=== PATIENT | female | born 1960 | race Caucasian/White ===

== ENCOUNTER 2017-07-22 12:04 | Inpatient (IN) | payer OTHER ==
[~2017-07-22] VITALS: Ht 160 cm; Wt 43.5 kg
[~2017-07-22 12:04] MED LIST: ALPRAZOLAM1 M2 PO; AMLODIPINE BES2.5 M1 PO; AMLODIPINE BESYL5 M1 PO; ASPIR 8181 MG PO; CLINDAMYCIN300 MG PO; DILAUDID2 MG PO; DILAUDID4 M1 PO; DOXYCYCLINE HY100 M2 PO; HYDROMORPHONE HY4 MG PO; MAGOX 400400 MG PO; MELATONIN3 MG PO; NEPHRO-VITE RX1 EACH PO; NORVASC 5MG TAB5 MG PO; NOVAPLUS V0.09 MG/Ac INH; NUVIGIL250 MG PO; NYQUIL PO; OXYCODONE HCL30 MG PO; OXYCONTIN60 MG PO; PERCOCET 325 MG1 TA2 PO; PHENERGAN25 M1 PO; PROMETHAZINE HC25 M1 PO; PROMETHAZINE HC25 M3 PO; ROXICODONE30 MG PO; SODIUM BICARBO650 M1 PO; ZITHROMAX Z-PA250 M1 PO
--- NOTE | 2017-07-22 12:20 | ED DYSPNEA/ASTHMA COMPLAINT ---
History of Present Illness General Chief Complaint: Dyspnea (COPD, CHF, Other) Stated Complaint: SOB Source: patient, old records Exam Limitations: clinical condition Vital Signs & Intake/Output Vital Signs & Intake/Output Vital Signs Date Time Temp Pulse Resp B/P B/P Pulse O2 O2 Flow FiO2 Mean Ox Delivery Rate 07/22 1624 98.9 108 28 183/88 97 Non 100% ReBreather 07/22 1520 98.5 111 28 211/102 98 Non 100% ReBreather 07/22 1433 98.2 101 26 205/95 99 Non ReBreather 07/22 1342 86 189/97 07/22 1320 101 196/96 07/22 1305 98.1 103 26 198/110 92 Non 100% ReBreather 07/22 1250 100 Non 100% ReBreather 07/22 1239 98 Non 100% ReBreather 07/22 1216 96.5 117 26 194/106 81 Room Air Allergies Coded Allergies: propofol (Severe, SHORTNESS OF BREATH 12/02/15) Iodinated Contrast- Oral and IV Dye (IODINATED CONTRAST MEDIA - IV DYE) (UNKNOWN PER PT DOESNT REMEMBER 07/13/15) NSAIDS (Non-Steroidal Anti-Inflamma (PER MD NO NSAIDS 07/13/15) aspirin (PER PT MD SAID NO ASA - KIDNEYS 07/13/15) codeine (ANAPHYLAXIS 07/13/15) cortisone (UNKNOWN NOT ALLOWED PER MD KIDNEY 07/13/15) erythromycin base (DECREASED RENAL FUNCTIONS 07/13/15) hydrocodone (From VICODIN) (PER PT MD STATES NO APAP 07/13/15) morphine (SEVERE MIGRAINES AND GI UPSET 07/13/15) ondansetron (UNKNOWN PT DOESNT REMEMBER 07/13/15) metoclopramide (Intermediate, WEAKNESS 07/13/15) Sulfa (Sulfonamide Antibiotics) (VOMITING 07/13/15) ciprofloxacin (From CIPRO) (DIZZY 07/13/15) methadone (VOMITING 07/13/15) Uncoded Allergies: SALMON OIL (UNKNOWN REACTION TO SALMON 07/13/15) Reconcile Medications Alprazolam 1 MG TABLET 1 TAB PO 5 TIMES A DAY ANXIETY (Reported) Amlodipine Besylate 10 MG TABLET 1 TAB PO DAILY HEART (Reported) Triage Note: PT DIRECTLY TO ROOM [address] [facility] DESK. PT ARRIVED TO ER STATING, "I CAN'T BREATHE". PT MARINELLI. OXYGEN SAT 82-85% ON RA. HR 120'S. PT ON DIALYSIS, LAST SESSION LAST SATURDAY PER PT. PT ADMITS TO PAIN WITH INSPIRATION, STARTED COUGHING UP BLOOD THIS AM Triage Nurses Notes Reviewed? yes Onset: Abrupt Duration: day(s):, constant Timing: recent history Severity: moderate, severe Activities at Onset: none HPI: 56-year-old female comes into the emergency room for shortness of breath chest pain and generalized pain. Has a history of chronic kidney disease on hemodialysis. She has not been to dialysis in over a week. She goes twice a week typically. Reports that she had a previous history of a heart attack. She is increasing chest tightness and shortness of breath. She has not seen a doctor in quite some time. She also reports that she is withdrawing from pain medication. She typically uses pain pills. Some associated nausea. He comes in for further evaluation. History is somewhat limited secondary to patient's clinical condition. (Lalit Sheridan) Past History Travel History Traveled to [place] past 21 day No Medical History Any Pertinent Medical History? 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 No (Lalit Sheridan) Review of Systems Review of Systems Constitutional: Reports: no symptoms. EENTM: Reports: no symptoms. Respiratory: Reports: see HPI. Cardiovascular: Reports: see HPI. GI: Reports: no symptoms. Genitourinary: Reports: no symptoms. Musculoskeletal: Reports: see HPI. Skin: Reports: no symptoms. Neurological/Psychological: Reports: no symptoms. Hematologic/Endocrine: Reports: no symptoms. Immunologic/Allergic: Reports: no symptoms. All Other Systems: Reviewed and Negative (Lalit Sheridan) Physical Exam Physical Exam General Appearance: alert, awake, moderate distress Head: atraumatic, normal appearance Eyes: Bilateral: normal appearance. Ears, Nose, Throat: normal ENT inspection Neck: normal inspection Respiratory: crackles, respiratory distress (moderate) Cardiovascular: tachycardia Gastrointestinal: soft Extremities: no edema Neurologic/Psych: awake, alert Skin: intact Core Measures ACS in differential dx? Yes CVA/TIA Diagnosis No Sepsis Present: No Sepsis Focused Exam Completed? No (Lalit Sheridan) Progress Differential Diagnosis: asthma, AMI, bronchitis, costochondritis, CHF, COPD, musculoskeletal pain, pericarditis, pulmonary embolism, pneumonia, pneumothorax, rib fracture, unstable angina Plan of Care: Orders Procedure Date/time Status Renal Dialysis Diet 07/22 D Active VRE ACTIVE SURVIELLANCE 07/22 1637 Active ACTIVE SURVEILLANCE NARES 07/22 1637 Active Pathway - chart 07/22 1545 Active RAPID VIRAL INFLUENZA A 07/22 1545 Complete STREP PNEUMO URINARY ANTIGEN 07/22 1545 Active LEGIONELLA URINARY ANTIGEN 07/22 1545 Active TRC EVALUATION (GEN) 07/22 1541 Active OXYGEN SETUP (GEN) 07/22 1541 Active Pathway - chart 07/22 1541 Active House Staff 07/22 1541 Active Code Status 07/22 1541 Active LACTIC ACID 07/22 1522 Complete FingerStick- Glucose 07/22 1427 Active Patient Data 07/22 1354 Active Admit to inpatient 07/22 1351 Active OXYGEN SETUP (GEN) 07/22 1301 Complete AEROSOL (GEN) 07/22 1301 Complete EKG 07/22 1250 Active BLOOD CULTURE 07/22 1222 Active LACTIC ACID 07/22 1222 Complete ARTERIAL BLOOD GAS (GEN) 07/22 1219 Complete Telemetry/Unix Administrator 07/22 1219 Active TROPONIN LEVEL 07/22 1219 Complete PARTIAL THROMBOPLASTIN TIME 07/22 1219 Complete PROTHROMBIN TIME 07/22 1219 Complete COMPREHENSIVE METABOLIC PANEL 07/22 1219 Complete CBC WITHOUT DIFFERENTIAL 07/22 1219 Complete EKG 07/22 1219 Active VTE Mechanical Prophylaxis 07/22 UNK Active Vital Signs 07/22 UNK Active Intake & Output 07/22 UNK Active Current Medications Sig/Nhi Start time Last Medication Dose Stop Time Status Admin Azithromycin 500 MG DAILY 07/23 1000 AC (Zithromax) Dextrose/Water 250 ML (D5W) Ceftriaxone Sodium 1,000 MG DAILY 07/23 1000 AC (Rocephin) Heparin Sodium 5,000 UNIT Q8 07/22 2200 AC (Porcine) Acetaminophen 650 MG Q6P PRN 07/22 1545 AC (Tylenol) Acetaminophen 1,000 MG Q6P PRN 07/22 1545 AC (Ofirmev) Polyethylene Glycol 17 GM DAILY PRN 07/22 1545 AC (Miralax) Ondansetron HCl 4 MG ONCE ONE 07/22 1300 CAN (Zofran) 07/22 1301 Laboratory Tests 07/22/17 1537: Lactic Acid 1.2 07/22/17 1300: Lactic Acid 0.8 07/22/17 1300: Anion Gap 17 H, Estimated GFR 3 L, BUN/Creatinine Ratio 6.5 L, Glucose 100 H , Calcium 9.7, Total Bilirubin 0.8, AST 15, ALT 20, Alkaline Phosphatase 95, Troponin I 0.05, Total Protein 7.3, Albumin 4.0, Globulin 3.3, Albumin/Globulin Ratio 1.2, PT 12.3, INR 1.13, APTT 26, CBC w Diff MAN DIFF ORDERED, RBC 3.52 L, MCV 91.6, MCH 30.7, MCHC 33.5, RDW 15.4 H, MPV 8.8, Gran % 93.3 H, Lymphocytes % 3.0 L, Monocytes % 3.3, Eosinophils % 0.3, Basophils % 0.1, Absolute Granulocytes 16.8 H, Segmented Neutrophils 86 H, Band Neutrophils 4, Absolute Lymphocytes 0.5 L, Lymphocytes 6 L, Monocytes 4, Absolute Monocytes 0.6, Absolute Eosinophils 0, Absolute Basophils 0, Platelet Estimate ADEQUATE, Normocytic RBCs VERIFIED, Normochromic RBCs VERIFIED, Poikilocytosis FEW, Sarbjit Cells FEW 07/22/17 1235: pH 7.26 *L, pCO2 25 L, pO2 84, HCO3 11 L, ABG O2 Sat (Measured) 94.0 L, Carboxyhemoglobin 1.4 L, O2 Concentration % 100%, O2 Delivery Method RICARDO MASK, Phlebotomy Draw Site RIGHT BRACHIAL Microbiology 07/22 163 UPPER RESP: Surveillance Culture - ORD 07/22 1637 GI: Surveillance Culture - ORD 07/22 1550 NASOPHARYN: Influenza Virus A & B Rapid Smear - COMP 07/22 1545 URINE ROUT: Legionella Antigen - ORD 07/22 1545 URINE ROUT: Streptococcus pneumoniae Antigen (M - ORD 07/22 1537 BLOOD: Blood Culture - RECD 07/22 1300 BLOOD: Blood Culture - RECD Diagnostic Imaging: Viewed by Me: Radiology Read. Discussed w/RAD: Radiology Read. Radiology Impression: PATIENT: FAMILIA EPPS PRESENT AGE: 56 PATIENT ACCOUNT NO: [id number] : 61 LOCATION: [facility] ORDERING PHYSICIAN: Lalit CHENEY SERVICE DATE: 07/22/17 EXAM TYPE: RAD - XRY-PORTABLE CHEST XRAY EXAMINATION: XR PORTABLE CHEST CLINICAL INFORMATION: Shortness of breath COMPARISON: 01/11/2016 TECHNIQUE: Portable frontal view of the chest was obtained. FINDINGS: Again noted is the right-sided double-lumen central catheter, its tip located within the right atrium. Lungs are well expanded. Bilateral airspace opacities are predominantly seen in a perihilar distribution. The left costophrenic sulcus is ill-defined, suggestive of a trace left pleural effusion. No pneumothorax. Cardiac silhouette is normal in size. The visualized bones are intact. There appears to be a reflection line from clothing overlapping the left lateral hemithorax. IMPRESSION: Bilateral airspace opacities, for which differential diagnosis includes pulmonary edema and/or multilobar pneumonia, depending upon the clinical context. DICTATED BY: Alphonse Hurtado MD DATE/TIME DICTATED:07/22/171415 COORDINATOR SKILL TRAINING PROGRAM:DIZA DATE/ TIME TRANSCRIBED:07/22/171415 CONFIDENTIAL, DO NOT COPY WITHOUT APPROPRIATE AUTHORIZATION. <Electronically signed in Other Vendor System> SIGNED BY: Alphonse Hurtado MD 07/22/17 4396 Initial ED EKG: normal sinus rhythm, rate (112), nonspecific ST T wave chg, ST elevation (v1-v3) Prior EKG: changed Repeat EKG: changed (st elevation improved) Comments: 07/22/2017 1:25:34 PM EKG was completed at 1241. It was reviewed immediately with Dr. kat. A repeat was ordered. Cardiology was paged and Dr. Vargas came down and saw and evaluated the patient. At this time we are waiting on blood work before we make any further decision. The repeat EKG showed some mild improvement. Could be rate related ST elevation versus LVH/repolarization. Patient will be admitted to the ICU. (Lalit Sheridan) Departure Departure Disposition: STILL A PATIENT Condition: Stable Clinical Impression Primary Impression: Respiratory failure Secondary Impressions: CHF (congestive heart failure), Hyperkalemia Referrals: Bharati Gomez MD (PCP/Family) Departure Forms: Customer Survey General Discharge Information Admission Note Spoke With: Zac Escoto MD Documentation of Exam: Documentation of any treatments & extenuating circumstances including Concerns Regarding Discharge (functional status, medication knowledge or non-compliance, living conditions, etc.) that warrant an admission rather than observation: Patient will require IV antibiotics. Critical care. Dialysis. High risk. IV antihypertensives. Supplemental oxygen. (Lalit Sheridan) PA/VENDING MACHINE TECHNICIAN Co-Sign Statement Statement: ED Attending supervision documentation- x I saw and evaluated the patient. I have also reviewed all the pertinent lab results and diagnostic results. I agree with the findings and the plan of care as documented in the PA's/VENDING MACHINE TECHNICIAN's documentation. Urgent hemodialysis ICU monitoring for non compliant ESRD with volume overload, hyperkalemia [] I have reviewed the ED Record and agree with the PA's/VENDING MACHINE TECHNICIAN's documentation. [] Additions or exceptions (if any) to the PAs/VENDING MACHINE TECHNICIAN's note and plan are summarized below: [] (Vincenzo PERALTA,Macario) Critical Care Note Critical Care Note Critical Care Time: 30-74 min (60) (Lalit Sheridan)
[2017-07-22 13:09] LABS: ABSOLUTE BASOPHIL COUNT 0 /CUMM (0.0-0.2); ABSOLUTE EOSINOPHIL COUNT 0 /CUMM (0.0-0.7); ABSOLUTE GRANULOCYTE CT 16.8 /CUMM (1.4-6.5); ABSOLUTE LYMPH COUNT 0.5 /CUMM (1.2-3.4); ABSOLUTE MONOCYTE COUNT 0.6 /CUMM (0.10-0.60); BASOPHIL % 0.1 % (0.0-2.0); EOSINOPHIL % 0.3 % (0-5); HEMATOCRIT 32.3 % (37-47); MEAN CORPUSCULAR HGB 30.7 PG (27.0-31.0); MEAN CORPUSCULAR HGB CONC 33.5 G/DL (33.0-37.0); MEAN CORPUSCULAR VOLUME 91.6 FL (81.0-99.0); MEAN PLATELET VOLUME 8.8 FL (7.4-10.4); PLATELET COUNT 250 /CUMM (130-400); RBC DISTRIBUTION WIDTH 15.4 % (11.5-14.5); RED BLOOD CELL CT 3.52 /CUMM (4.20-5.40)
[2017-07-22 13:19] LABS: GRANULOCYTE % 93.3 % (42.2-75.2)
[2017-07-22 13:21] LABS: PT 12.3 SEC (9.4-12.5); PTT 26 SEC (25-37)
--- NOTE | 2017-07-22 14:02 | History & Physical ---
Leonel PERALTA,George 07/22/17 1400: General Information and HPI MD Statement: I have seen and personally examined FAMILIA EPPS and documented this H&P. The patient is a 56 year old F who presented with cough, shortness of breath with Source of Information: patient Exam Limitations: poor historian History of Present Illness: 56-year-old female with past history of ESRD on dialysis, last one on 07/08/2017 , hypertension, chronic pain, benzos and opiates dependence, came into the emergency department with cough and shortness of breath, that has been going on since 1 week. The patient is a poor historian, and also was in moderate respiratory distress at the time of my interview, thus much of the history was obtained briefly and might be able to elicit a detailed one later. According to the patient, she has been coughing with pink frothy sputum since past 2-3 days associated with shortness of breath which is worsening now, and some epigastric pain, but no chest pain, palpitation, leg swelling, fever, chills, headache. Her last hemodialysis was on 07/08/2017 in [place]. Of note, patient seems to be a homeless, and lacks social support. Allergies/Medications Allergies: Coded Allergies: propofol (Severe, SHORTNESS OF BREATH 12/02/15) Iodinated Contrast- Oral and IV Dye (IODINATED CONTRAST MEDIA - IV DYE) (UNKNOWN PER PT DOESNT REMEMBER 07/13/15) NSAIDS (Non-Steroidal Anti-Inflamma (PER MD NO NSAIDS 07/13/15) aspirin (PER PT MD SAID NO ASA - KIDNEYS 07/13/15) codeine (ANAPHYLAXIS 07/13/15) cortisone (UNKNOWN NOT ALLOWED PER KIDNEY 07/13/15) erythromycin base (DECREASED RENAL FUNCTIONS 07/13/15) hydrocodone (From VICODIN) (PER PT MD STATES NO APAP 07/13/15) morphine (SEVERE MIGRAINES AND GI UPSET 07/13/15) ondansetron (UNKNOWN PT DOESNT REMEMBER 07/13/15) metoclopramide (Intermediate, WEAKNESS 07/13/15) Sulfa (Sulfonamide Antibiotics) (VOMITING 07/13/15) ciprofloxacin (From CIPRO) (DIZZY 07/13/15) methadone (VOMITING 07/13/15) Uncoded Allergies: SALMON OIL (UNKNOWN REACTION TO SALMON 07/13/15) Home Med list Alprazolam 1 MG TABLET 1 TAB PO 5 TIMES A DAY ANXIETY (Reported) Amlodipine Besylate 10 MG TABLET 1 TAB PO DAILY HEART (Reported) Compliance With Home Meds: POOR Past History Travel History Traveled to [place] past 21 day No Medical History Neurological: TBI EENT: NONE Cardiovascular: hypertension, myocardial infarction Respiratory: NONE Gastrointestinal: GERD, pancreatitis Hepatic: NONE Renal: chronic kidney disease, B/L vesiculoureteral reflux Musculoskeletal: chronic back pain, osteoarthritis, psoriasis Psychiatric: anxiety, depression, PTSD Endocrine: NONE Blood Disorders: NONE Cancer(s): NONE 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 Other (her car) Services at Home: None Primary Language: Italian Smoking Status: Heavy Tobacco Smoker ETOH Use: occasional use Illicit Drug Use: vapor, ?containing THC Functional Ability ADLs Independent: dressing, eating, toileting, bathing. Ambulation: independent IADLs Independent: shopping, housework, finances, food prep, telephone, transportation , medication admin. Review of Systems Review of Systems Constitutional: Reports: no symptoms. EENTM: Reports: no symptoms. Cardiovascular: Reports: no symptoms. Respiratory: Reports: see HPI, cough, short of breath. Denies: wheezing. GI: Reports: no symptoms. Genitourinary: Reports: no symptoms. Musculoskeletal: Reports: no symptoms. Skin: Reports: no symptoms. Neurological/Psychological: Reports: anxiety. Hematologic/Endocrine: Reports: no symptoms. All Other Systems: Reviewed and Negative Exam & Diagnostic Data Last 24 Hrs of Vital Signs/I&O Vital Signs Date Time Temp Pulse Resp B/P B/P Pulse O2 O2 Flow FiO2 Mean Ox Delivery Rate 07/22 1342 86 189/97 07/22 1320 101 196/96 07/22 1250 100 Non 100% ReBreather 07/22 1239 98 Non 100% ReBreather 07/22 1216 96.5 117 26 194/106 81 Room Air Intake & Output 07/22 1600 07/22 0800 07/22 0000 Intake Total Output Total Balance Patient 45.359 kg Weight Weight Estimated Measurement Method Physical Exam General Appearance Alert, Oriented X3, Cooperative, Moderate Distress ( respiratory), ill kempt, on non-rebreather mask Skin right hand dorsum has healing bruise Skin Temp/Moisture Exam: Warm/Dry Sepsis Skin Exam (color): Normal for Ethnicity HEENT Atraumatic, PERRLA, EOMI Neck Supple, No JVD, No thryomegaly Lymphatic Cervical nl Cardiovascular Regular Rate, Normal S1, Normal S2 Lungs b/l coarse crackles heard, rt side of chest has hemodialysis catheter Abdomen Normal Bowel Sounds, Soft, No Tenderness Neurological grossly intact, anxiety+ Extremities No Clubbing, No Cyanosis, No Edema Vascular Normal Pulses Sepsis Peripheral Pulse Location: Radial Sepsis Peripheral Pulse Exam: Normal Sepsis Cap Refill Exam: <2 Sec Last 24 Hrs of Labs/Adonay: Laboratory Tests 07/22/17 1300: Lactic Acid 0.8 07/22/17 1300: Anion Gap 17 H, Estimated GFR 3 L, BUN/Creatinine Ratio 6.5 L, Glucose 100 H , Calcium 9.7, Total Bilirubin 0.8, AST 15, ALT 20, Alkaline Phosphatase 95, Troponin I 0.05, Total Protein 7.3, Albumin 4.0, Globulin 3.3, Albumin/Globulin Ratio 1.2, PT 12.3, INR 1.13, APTT 26, CBC w Diff MAN DIFF ORDERED, RBC 3.52 L, MCV 91.6, MCH 30.7, MCHC 33.5, RDW 15.4 H, MPV 8.8, Gran % 93.3 H, Lymphocytes % 3.0 L, Monocytes % 3.3, Eosinophils % 0.3, Basophils % 0.1, Absolute Granulocytes 16.8 H, Segmented Neutrophils 86 H, Band Neutrophils 4, Absolute Lymphocytes 0.5 L, Lymphocytes 6 L, Monocytes 4, Absolute Monocytes 0.6, Absolute Eosinophils 0, Absolute Basophils 0, Platelet Estimate ADEQUATE, Normocytic RBCs VERIFIED, Normochromic RBCs VERIFIED, Poikilocytosis FEW, Sarbjit Cells FEW 07/22/17 1235: pH 7.26 *L, pCO2 25 L, pO2 84, HCO3 11 L, ABG O2 Sat (Measured) 94.0 L, Carboxyhemoglobin 1.4 L, O2 Concentration % 100%, O2 Delivery Method RICARDO MASK, Phlebotomy Draw Site RIGHT BRACHIAL Microbiology 07/22 1300 BLOOD: Blood Culture - RECD 07/22 1222 BLOOD: Blood Culture - ORD Diagnostic Data EKG Results ST changes noted with tall T waves, compensation and benefits manager Dr Vargas was called in by ED who said that this could be watched. Assessment/Plan Assessment: 56-year-old female with past history of ESRD on dialysis, last one on 07/08/2017 , hypertension, chronic pain, benzos and opiates dependence, came into the emergency department with cough and shortness of breath, that has been going on since 1 week. Patient is currently being managed in the ICU for following issues: #Acute pulmonary edema secondary to noncompliance to dialysis Patient has not been compliant with dialysis since past 2 weeks, and is now presenting with acute pulmonary edema as evident by pink frothy sputum and respiratory distress with b/l coarse crackles. Nephrology consultation has been placed and dialysis planned for later today. Differentials also include comminuted acquired pneumonia thus will continue with ceftriaxone and azithromycin for now. -We will get a follow-up CAT scan of the chest without IV contrast after the dialysis today. #NEPTALI on ESRD, non-compliance Patient has decided to sew up after 2 weeks of noncompliance with dialysis, thus has acute kidney injury, which is expected to be better after the dialysis later today. #History of hypertension Will continue her amlodipine 10 mg daily starting tomorrow, would watch for drop in blood pressure after the dialysis though. #Anxiety disorder Will continue her home medication of alprazolam, although at a lower dose. Need to run CTPMP on her medical records. #Diet: Renal dialysis diet #DVT ppx: SQ Heparin #Code status: Full code Of note, patient notified later to staff that she is not interested in her treatment, even if this means life-threatening medical situation, unless she gets her medications according to herself, like pain meds. She was informed that we would treat her for all the medical reasons, and also that pain medications as and if warranted will be provided. As Ranked By This Provider Problem List: 1. Acute pulmonary edema 2. Pneumonia Core Measures/Misc (01/06) Acute Coronary Syndrome ACS Diagnosis: No Congestive Heart Failure Congestive Heart Failure Diagnosis Yes Last Known EF % 60 Cerebrovascular Accident CVA/TIA Diagnosis: No VTE (View Protocol) VTE Risk Factors Age>40 No Mechanical VTE Prophylaxis d/t N/A MechProphylax Ordered No VTE Pharm Prophylaxis d/t NA PharmProphylax ordered Sepsis (View protocol) Sepsis Present: No Zac Escoto MD 07/22/17 1536: Attending MD Review Statement Attending Statement Attending MD Statement: examined this patient, discuss w/resident/PA/HOSTED SERVICES ANALYST, agreed w/resident/PA/HOSTED SERVICES ANALYST, discussed with family, reviewed EMR data (avail), discussed with nursing, discussed with case mgmt, reviewed images, amended to note Attending Assessment/Plan: Zac Magaña M.D. have examined this patient, reviewed available EMR data, personally reviewed images, discussed with resident/PA/HOSTED SERVICES ANALYST, discussed management plan with housestaff and nursing staff, discussed managment plan all of healthcare providers, discussed management plan with patient and/or family, agreed with resident/PA/HOSTED SERVICES ANALYST. The past history and parts of the chart have been autopopulated. Impression 56 year old woman * Acute hypoxemic respiratory failure, secondary to fluid overload/pulmonary edema due to non-adherence to dialysis * Drug dependence - cocaine, benzodiazepines, opiates * Hyperkalemia Plan Respiratory -pt required intubation for airway protection and elevated difficult to control BP and respiratory distress -monitor abg, cxrs ID -ceftriaxone, zithromax -f/u all cultures CVS -f/u ECHO -cardiology consultation -monitor hemodynamics Heme -monitor cbc, coags Metabolic -nephrology appreciated -HD plan per renal Alimentary -NPO Neuro -pain control -sedation DVT prophylaxis at all times TTS 55 min
--- NOTE | 2017-07-22 14:23 | RADIOLOGY REPORT ---
EXAMINATION: XR PORTABLE CHEST CLINICAL INFORMATION: Shortness of breath COMPARISON: 01/11/2016 TECHNIQUE: Portable frontal view of the chest was obtained. FINDINGS: Again noted is the right-sided double-lumen central catheter, its tip located within the right atrium. Lungs are well expanded. Bilateral airspace opacities are predominantly seen in a perihilar distribution. The left costophrenic sulcus is ill-defined, suggestive of a trace left pleural effusion. No pneumothorax. Cardiac silhouette is normal in size. The visualized bones are intact. There appears to be a reflection line from clothing overlapping the left lateral hemithorax. IMPRESSION: Bilateral airspace opacities, for which differential diagnosis includes pulmonary edema and/or multilobar pneumonia, depending upon the clinical context.
[2017-07-22] MEDS ORDERED: AMLODIPINE BESY10 M1 PO (14:40)
--- NOTE | 2017-07-22 16:38 | Admission Certification ---
Admission Certification Certification Statement - As attending physician, I certify that at the time of - admission, based on clinical presentation, severity of - symptoms, need for further diagnostic testing and - therapeutic interventions, and risk of adverse outcomes - without in-hospital treatment, in my clinical assessment, - this patient requires an acute hospital stay for a minimum - of two nights or longer. I have also considered psychsocial - factors such as support system, advanced age, financial - issues, cognitive issues, and failed out-patient treatments, - past re-admission history, safety of patient, and lack of - compliance as applicable. Specific rationale supporting this admission is: acute hypoxemic respiratory failure, non adherence to dialysis, requires urgent dialysis ICU level of care
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
--- NOTE | 2017-07-22 18:35 | RADIOLOGY REPORT ---
EXAMINATION: XR PORTABLE CHEST CLINICAL INFORMATION: Status post endotracheal tube and orogastric tube placement. COMPARISON: CXR from 07/22/2017 at 1:05 PM TECHNIQUE: Portable frontal view of the chest was obtained. FINDINGS: The tip of the endotracheal tube is 5.4 cm above the jose. The tip of the enteric tube is located in the proximal stomach, and the side-port of the tube projects approximately 2 cm below the level of the EG junction. The indwelling central catheter remains in stable position within the right atrium. Interval worsening of patchy airspace opacity in both lungs. This is nonspecific and could represent multilobar pneumonia and/or edema. There is suggestion of a trace left pleural effusion. No pneumothorax, pneumomediastinum or other significant interval change. IMPRESSION: 1. ET tube is located 5.4 cm above the jose and enteric tube is positioned within the proximal stomach. 2. Interval worsening of multilobar airspace opacity compared to the recent chest radiograph.
--- NOTE | 2017-07-22 19:27 | Event Note ---
Event Note Event Note: Around 5:45 pm The p.t become tachycardiac , tachypneic and in respiratory distress before we start the hemodialysis, so decision of intubation made as she has sever pulmonary edema with fluid overload. Manager Medicare notified and he recommend Vent setting of 500/16/100%/PEEP 5 and to obtain chest x-ray and ABG titrate Fio as tolerated. Also prior to that patient was found sitting on the floor and she lift herself no signs of head injury noted and she stated that she went down by herself according to the nurse.
--- NOTE | 2017-07-22 21:08 | Cons- Cardiology ---
General Information and HPI Consulting Request Date of Consult: 07/22/17 Requested By: Zac Escoto MD History of Present Illness: Ms. Calabrese is a 56 year old female with history of hypertension, coronary artery disease and tobacco abuse. She also carries a history of ESRD on dialysis, traumatic brain injury and opioid abuse. Over the past two days this patient has noted shortness of breath which has become progressively worse accompanies by orthopnea. At the same time the patient feels short of breath she has a chest discomfort which becomes worse with inspiration. There is no nausea, vomiting or diaphoresis and she denies lightheadedness or palpitations. The patient also reports a cough without fever or chills. She frequently refuses dialysis and her last dialysis was July 08. The patient has a highly elevated WBC count and elevated creatinine and potassium. She was very hypertensive upon initial presentation. The patient did have an echocardiogram in 2015 that showed a normal EF of 60% without any significant valvular disease. Allergies/Medications Allergies: Coded Allergies: propofol (Severe, SHORTNESS OF BREATH 12/02/15) Iodinated Contrast- Oral and IV Dye (IODINATED CONTRAST MEDIA - IV DYE) (UNKNOWN PER PT DOESNT REMEMBER 07/13/15) NSAIDS (Non-Steroidal Anti-Inflamma (PER MD NO NSAIDS 07/13/15) aspirin (PER PT MD SAID NO ASA - KIDNEYS 07/13/15) codeine (ANAPHYLAXIS 07/13/15) cortisone (UNKNOWN NOT ALLOWED PER MD KIDNEY 07/13/15) erythromycin base (DECREASED RENAL FUNCTIONS 07/13/15) hydrocodone (From VICODIN) (PER PT MD STATES NO APAP 07/13/15) morphine (SEVERE MIGRAINES AND GI UPSET 07/13/15) ondansetron (UNKNOWN PT DOESNT REMEMBER 07/13/15) metoclopramide (Intermediate, WEAKNESS 07/13/15) Sulfa (Sulfonamide Antibiotics) (VOMITING 07/13/15) ciprofloxacin (From CIPRO) (DIZZY 07/13/15) methadone (VOMITING 07/13/15) Uncoded Allergies: SALMON OIL (UNKNOWN REACTION TO SALMON 07/13/15) Home Med List: Alprazolam 1 MG TABLET 1 TAB PO 5 TIMES A DAY ANXIETY (Reported) Amlodipine Besylate 10 MG TABLET 1 TAB PO DAILY HEART (Reported) Review of Systems Review of Systems: Opiod addiction. 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 Other (her car) Services at Home: None Primary Language: Azeri Smoking Status: Current Everyday Smoker ETOH Use: occasional use Illicit Drug Use: vapor, ?containing THC Functional Ability ADLs Independent: dressing, eating, toileting, bathing. Ambulation: independent IADLs Independent: shopping, housework, finances, food prep, telephone, transportation , medication admin. Exam & Diagnostic Data Vital Signs and I&O Vital Signs Date Time Temp Pulse Resp B/P B/P Pulse O2 O2 Flow FiO2 Mean Ox Delivery Rate 07/22 1812 Ventilator 100% 07/22 1745 100 07/22 1630 94 Non 100% ReBreather 07/22 1624 98.9 108 28 183/88 97 Non 100% ReBreather 07/22 1520 98.5 111 28 211/102 98 Non 100% ReBreather 07/22 1433 98.2 101 26 205/95 99 Non ReBreather 07/22 1342 86 189/97 07/22 1320 101 196/96 07/22 1305 98.1 103 26 198/110 92 Non 100% ReBreather 07/22 1250 100 Non 100% ReBreather 07/22 1239 98 Non 100% ReBreather 07/22 1216 96.5 117 26 194/106 81 Room Air Intake & Output 07/22 1600 07/22 0800 07/22 0000 07/21 1600 07/21 0800 07/21 0000 Intake Total Output Total Balance Patient 99 lb 15.99 oz Weight Weight Estimated Measurement Method Physical Exam: General: WD/WN female in NAD; awake and responsive. HEENT: NC/AT, PERRL, EOMI Neck: +ve JVD, no carotid bruit Heart: RRR with 3/6 systolic murmur at the LLSB Lungs: crackles at bases bilaterally Abdomen: soft, NT, +ve bowel sounds Extremties: no edema Assessment/Plan Assessment/Plan * This patient has pulmonary edema that is likely due to her failure to be compliant with dialysis. In this setting she also has an increased potassium level. Dialysis is planned which should help both her fluid overload and hyperkalemia. * This patient does have some ischemic ST-T changes in the setting of respiratory distress and decreased oxygen saturation. This should improve with supplemental oxygen and dialysis. At some point, when more stable, it would be reasonable to risk stratify her with a stress test. In addition, this patient has a murmur of mitral regurgitation which may be related to ischemia induced papillary muscle dysfunction. Obtain an echocardiogram. Follow cardiac enzymes for three sets. I do not think this patient is having an [place]. * This patient had severe hypertension upon initial presentation that is likely related to both fluid overload and increased stress hormone. In addition to dialysis, begin labatolol 200mg BID after a 20mg IV bolus. Begin an ACEI. * This patient does have an elevated WBC count which may be related to stress but it is reasonable to treat with antibiotics for now. Consult Acknowledgment - Thank you for your consult request.
[2017-07-23] VITALS: BP 150/70
[2017-07-23 04:50] LABS: ABSOLUTE BASOPHIL COUNT 0 /CUMM (0.0-0.2); ABSOLUTE EOSINOPHIL COUNT 0 /CUMM (0.0-0.7); ABSOLUTE GRANULOCYTE CT 13.1 /CUMM (1.4-6.5); ABSOLUTE LYMPH COUNT 1.1 /CUMM (1.2-3.4); ABSOLUTE MONOCYTE COUNT 0.5 /CUMM (0.10-0.60); BASOPHIL % 0 % (0.0-2.0); EOSINOPHIL % 0.1 % (0-5); GRANULOCYTE % 88.8 % (42.2-75.2); HEMATOCRIT 31.5 % (37-47); MEAN CORPUSCULAR HGB 30.8 PG (27.0-31.0); MEAN CORPUSCULAR HGB CONC 33.2 G/DL (33.0-37.0); MEAN CORPUSCULAR VOLUME 92.6 FL (81.0-99.0); MEAN PLATELET VOLUME 9.1 FL (7.4-10.4); PLATELET COUNT 183 /CUMM (130-400); RBC DISTRIBUTION WIDTH 15.3 % (11.5-14.5); WHITE BLOOD CELL COUNT 14.8 /CUMM (4.8-10.8)
--- NOTE | 2017-07-23 07:36 | PN- Resident CRCU ---
Russell PERALTA,Emmanuel 07/23/17 0736: Subjective HPI/CRCU Issues: Patient seen and examined. She is seen lying flat in bed resting comfortably intubated on a ventilator with restraints. She appears to be in no acute distress. She rises to verbal / tactile stimuli. When asked if she has any pain she mouths "my back". Subjective complaints are limited due to intubation and review of systems are unobtainable. Objective Vital Signs & I&O Last 8 Hrs of Vitals and I&O: Intake & Output 07/23 1600 Intake Total Output Total Balance Patient 44.906 kg Weight Weight Bed scale Measurement Method Tele - NSR HR - HR 70s/90s SBP - 110s-160s Exam General Appearance: sedated, intubated, lethargic Other Physical Findings: GEN: thin, ill appearing, middle aged woman in no acute distress HEENT: NCAT, PERRLA, EOMI, anicteric sclera, MMM, ET/OGT in place NECK: Supple, no JVD, trachea midline CARD: Normal S1/S2 w/o m/g/r; RRR PULM: Diminished bibasilar airflow with scattered rhonchit ABD: Soft, NT, ND, BS+ : Franklin catheter in place without any urine output NEURO: Sedated, spontaneous movement of all four extremities EXT: Normal pulses, no cyanosis, clubbing, or edema Current Medications: Current Medications Sig/Nhi Start time Last Medication Dose Route Stop Time Status Admin Acetaminophen 650 MG Q6P PRN 07/22 1545 AC PO Acetaminophen 1,000 MG Q6P PRN 07/22 1545 AC IV Albuterol Sulfate 3 ML ONCE ONE 07/22 1230 DC INH 07/22 1231 Alprazolam 0.5 MG TID 07/22 2200 AC 07/22 PO 07/29 2159 2236 Alteplase, 6 MG ONE ONE 07/22 1900 DC 07/22 Recombinant IV 07/22 190 1830 Alteplase, 2 MG ONCE ONE 07/22 1830 CAN Recombinant IPL 07/22 183 Alteplase, 2 MG ONCE ONE 07/22 1830 CAN Recombinant IPL 07/22 1831 Amlodipine Besylate 10 MG DAILY 07/23 1000 AC PO Amlodipine Besylate 10 MG DAILY 07/22 1709 DC PO Aspirin 0 .STK-MED ONE 07/22 1321 DC PO Aspirin 325 MG ONCE ONE 07/22 1300 DC 04/ PO 04 1301 1320 Azithromycin 500 MG DAILY 04 1000 AC Dextrose/Water 250 ML IV Azithromycin 500 MG ONCE ONE 07/22 1345 DC 04/ Dextrose/Water 250 ML IV 04/ 1444 1545 Calcium Gluconate 0 .STK-MED ONE 07/22 1358 DC IV Calcium Gluconate 1 GM ONCE ONE 07/22 1345 DC 04 Sodium Chloride 100 ML IV 04 1444 1414 Ceftriaxone Sodium 1,000 MG DAILY 07/23 1000 AC IV Ceftriaxone Sodium 0 .STK-MED ONE 07/22 1358 DC .ROUTE Ceftriaxone Sodium 1,000 MG ONCE ONE 07/22 1345 DC 04 IV 04 1346 1540 Dextrose 25 GM ONCE ONE 07/22 1345 DC 04/ IV 07/22 1346 1414 Fentanyl Citrate 50 MCG ONCE ONE 07/22 1900 DC 04 IV 04 1901 1830 Fentanyl Citrate 100 MCG .STK-MED ONE 07/22 1852 DC IM 04 1853 Fentanyl Citrate 1,000 MCG Q24H 04/ 1830 AC 04 Dextrose/Water 250 ML IV 0305 Fentanyl Citrate 50 MCG ONCE ONE 07/22 1830 DC 04/ IV 04 1831 1830 Fentanyl Citrate 100 MCG .STK-MED ONE 07/22 1819 DC IM 04/ 1820 Heparin Sodium 5,000 UNIT Q8 07/22 2200 AC 04 (Porcine) SC 0701 Insulin Human Regular 10 UNITS ONCE ONE 07/22 1345 DC 07/22 IV 07/22 1346 1414 Lorazepam 2 MG ONCE ONE 07/22 1930 DC 04/ IV 07/22 1931 1915 Lorazepam 2 MG ONE ONE 07/22 1815 CAN IV 07/22 1816 Lorazepam 1 MG ONCE ONE 07/22 1730 DC / IV 07/22 1731 1730 Metoprolol Tartrate 0 .STK-MED ONE 07/22 1321 DC IV Metoprolol Tartrate 5 MG ONCE ONE 07/22 1300 DC 04/ IV 07/22 1301 1320 Morphine Sulfate 0 .STK-MED ONE 07/22 1248 DC .ROUTE Morphine Sulfate 4 MG ONCE ONE 07/22 1230 DC 04/02 IV 07/22 1231 1244 Ondansetron HCl 0 .STK-MED ONE 07/22 1321 DC .ROUTE Ondansetron HCl 4 MG ONCE ONE 07/22 1300 CAN IV 07/22 1301 Pantoprazole Sodium 40 MG DAILY 07/22 2230 AC / IV 2237 Polyethylene Glycol 17 GM DAILY PRN 07/22 1545 AC PO Prochlorperazine 2.5 MG ONCE ONE 07/22 2130 DC / IV 07/22 2131 2237 Prochlorperazine 2.5 MG ONCE ONE 07/22 1730 DC 04/ IV 07/22 1731 1730 Propofol 1,000 MG .STK-MED ONE 07/22 1728 DC IV 07/22 1729 Impression/Plan Impression/Problem List Impression: 56 year old woman with multiple medical problems significant for ESRD noncompliant with HD and polysubstance dependence seen for evaluation of shortness of breath found to have acute pulmonary edema. Patient was admitted to the ICU for urgent dialysis but was subsequently intubated. Patient remains afebrile with improving leukocytosis while on intravenous ceftriaxone / azithromycin for community acquired pneumonia. Cultures remain no growth to date. Yesterday afternoon patient was found on the ground during hemodialysis in respiratory distress for which she was intubated and started on fentanyl for sedation. She is awake and alert with minimal vent setting and may be considered for extubation soon. Patient initially declined hemodialysis today stating that it causes to much pain; she later agreed when given pain medication. Psych consult was placed for capacity evaluation. She may require an exchange of her Karson Cath due to a 'missing clip'. Labs this morning demonstrated hyperkalemia which is being rechecked. She is to undego another session of hemodialysis today. Echocardiogram pending. Patient will be started on an Lisinopril and labetalol are started, norvasc discontinued. She may require an outpatient stress test. Problem List -Acute Pulmonary Edema -Acute Hypoxic Respiratory failure s/p intubation -Community Acquired Pneumonia -Hypertension -ESRD on HD -Coronary artery disease -Chronic pain -Traumatic Brain Injury -Benzodiazepine/Opiate dependence -Tobacco abuse -Hypertension Plan -Continue Admission -Telemetry monitoring -Intubated, on Vent: VT 500, FiO2 50%, RR 16, PEEP 5 -Hemodialysis per nephrology -KAYE Franklin -Upper extremity soft restraints -Fentanyl for sedation -Ceftriaxone 1 g IV Daily -Protonix 40 mg IV Daily -Start ACEI when blood pressure stable -Continue meds: Amlodipine, Alprazolam -Azithromycin 500 mg IV Daily -Nephrology following for dialysis -Cardiology following for pulmonary edema -Follow up CXR after dialysis -Follow up echocardiogram -Pain control with acetaminophen -NPO, start renal dialysis diet when eating -DVT PPx with subcutaneous heparin -FULL CODE -Outpatient cardiovascular stratification Problem List: 1. Acute pulmonary edema 2. Respiratory failure Pain Ratin Tomorrow's Labs & Rationales: CBC, ICU, ABG, CXR Plan DVT/Prophylaxis: mechanical, pharmacological Zac Escoto MD 07/23/17 1109: Attending MD Review Statement Attending Sign Off Attending Cosign Statement: I have: examined this patient, reviewed avalbl EMR data, personally reviewd images, discussd w/resident/PA/ENGINE SERVICE REPAIRER, discussed mgmt plan w/franklin, discussed mgmt plan w/CM, discussed mgmt plan w/pt, agreed w/resident/PA/ENGINE SERVICE REPAIRER, amended to note. Other Findings: IZac M.D. have examined this patient, reviewed available EMR data, personally reviewed images, discussed with resident/PA/ENGINE SERVICE REPAIRER, discussed management plan with housestaff and nursing staff, discussed managment plan all of healthcare providers, discussed management plan with patient and/or family, agreed with resident/PA/ENGINE SERVICE REPAIRER. The past history and parts of the chart have been autopopulated. Impression 56 year old woman * Acute hypoxemic respiratory failure, secondary to fluid overload/pulmonary edema due to non-adherence to dialysis * Drug dependence - cocaine, benzodiazepines, opiates * Hyperkalemia Plan Respiratory -pt required intubation for airway protection and elevated difficult to control BP and respiratory distress -monitor abg, cxrs ID -ceftriaxone, zithromax -f/u all cultures CVS -f/u ECHO -cardiology consultation -monitor hemodynamics Heme -monitor cbc, coags Metabolic -nephrology appreciated -HD plan per renal -HD catheter to be addressed and if it needs to be replaced will call IR Alimentary -NPO Neuro -pain control -sedation DVT prophylaxis at all times TTS 35 min
[2017-07-23 08:00] VITALS: BP 134/76
[2017-07-23 12:00] VITALS: BP 140/78
--- NOTE | 2017-07-23 12:10 | Incdntl Nt Psy ---
Incidental Note Notation: 07/23/17 @ 1123: We have been asked to evaluate the patient's capacity to make a decision about continuing her hemodialysis. She is a 56 y.o. homeless, female who has a history of substance abuse, and positive for cocaine at admission, 07/22/17 @ 1999. She has been non-compliant with her hemodialysis, and states today that she did not want to continue with it. I visited the patient briefly today, after she agreed to accept her hemodialysis treatment. She is in pain, made worse by HD, and the team will trial her on Dilaudid today. Folstein/MMSE started; the patient is basically oriented, and can register 3 objects. At this point, the patient became nauseous and asked if the interview could continue tomorrow, 07/24/17. She denies current suicidal ideation. We hope to finish our interview and capacity evaluation on 07/24/17.
--- NOTE | 2017-07-23 12:52 | PN- Cardiology ---
Subjective Subjective: * Patient is now intubated and receiving dialysis. She had a fall yesterday and appeared to be in respiratory distress. * Sinus rhythm with normal cardiac enzymes. * elevated creatinine and potassium although better than yesterday Objective Vital Signs and I&Os Vital Signs Date Time Temp Pulse Resp B/P B/P Pulse O2 O2 Flow FiO2 Mean Ox Delivery Rate 07/23 1200 100 Ventilator 40% 07/23 1200 98.2 87 17 140/78 100 Ventilator 40% 07/23 1124 40 07/23 0821 50 07/23 0800 98.6 86 16 134/76 100 Ventilator 50% 07/23 0800 100 Ventilator 50% 04 0551 50 / 0400 100 Ventilator 50% 07/23 0301 50 / 0041 50 04/ 0000 99.3 84 16 150/70 100 Ventilator 50% / 0000 100 Ventilator 50% 07/22 2233 50 / 2106 60 / 2000 97 Ventilator 100% 07/22 1812 Ventilator 100% 07/22 1745 100 07/22 1630 94 Non 100% ReBreather 07/22 1624 98.9 108 28 183/88 97 Non 100% ReBreather 07/22 1520 98.5 111 28 211/102 98 Non 100% ReBreather 07/22 1433 98.2 101 26 205/95 99 Non ReBreather 07/22 1342 86 189/97 04 1320 101 196/96 07/22 1305 98.1 103 26 198/110 92 Non 100% ReBreather 07/22 1250 100 Non 100% ReBreather Intake & Output 07/23 1600 07/23 0807/23 0000 07/22 1600 07/22 0800 07/22 0000 Intake Total 230 196 Output Total 1848 135 Balance -1618 61 Intake, IV 200 196 Intake, Oral 0 Intake, Other 30 Number 0 0 Bowel Movements Output, 1623 Dialysate Output, 200 100 Gastric Drainage Output, Urine 25 35 Patient 99 lb 105 lb 99 lb 15.99 oz Weight Weight Bed scale Reported by Patient Estimated Measurement Method Physical Exam: General: WD/WN female; intubated, awake and responsive. HEENT: NC/AT, PERRL, EOMI Neck: +ve JVD, no carotid bruit Heart: RRR with 2/6 systolic murmur at the LLSB Lungs: clear anteriorly Extremties: no edema Assessment/Plan Assessment/Plan * This patient had pulmonary edema that was likely due to her failure to be compliant with dialysis. In this setting she also has an increased potassium level. Dialysis was done yesterday and she is being again dialyzed now. * This patient did have some ischemic ST-T changes in the setting of respiratory distress and decreased oxygen saturation. This should improve with supplemental oxygen and dialysis. At some point, when more stable, it would be reasonable to risk stratify her with a stress test. In addition, this patient has a murmur of mitral regurgitation which may be related to ischemia induced papillary muscle dysfunction. Obtain an echocardiogram. There is no evidence of an acute coronary syndrome. * This patient had severe hypertension upon initial presentation that was likely related to both fluid overload and increased stress hormone. In addition to dialysis, begin labatolol 200mg BID and begin an ACEI. Norvasc should be discontinued in favor of the above antihypertensives in this patient with ischemic ECG changes. * This patient does have an elevated WBC count which may be related to stress but it is reasonable to treat with antibiotics for now. She does appear to have a purulent urine. Continue telemetry? Yes
--- NOTE | 2017-07-23 13:31 | ECHOCARDIOGRAM REPORT ---
SUPRIYA FAMILIA Age: 56 : 1960 Gender: F Exam Date: 07/23/2017 09:34 Exam Location: [facility] Ht (in): 63 Wt (lb): 104 BSA: 1.44 BP: 150 / 70 Ordering Physician: Bernardo Glez MD Referring Physician: Bernardo Glez MD Technologist: Shadi Lamar [facility] Room Number: 101 Indications: HEART FAILURE Rhythm: Sinus Technical Quality: good FINDINGS Left Ventricle Normal left ventricular size and wall thickness. Severely decreased systolic function with severe anterior hypokinesis. Diastolic filling pattern is consistent with impaired LV relaxation. The ejection fraction is visually estimated at 25-30%. Right Ventricle The right ventricle is normal in size and function. Right Atrium The right atrium is normal in size. Left Atrium The left atrium is normal in size. The interatrial septum is intact. Mitral Valve The mitral valve is normal in structure and function. There is mild mitral regurgitation. Aortic Valve Structurally normal aortic valve without significant sclerosis or stenosis. There is mild aortic regurgitation. Tricuspid Valve The tricuspid valve is normal in structure and function. There is trace tricuspid regurgitation. Pulmonic Valve Structurally normal pulmonic valve. There is trace pulmonic regurgitation. Pericardium Normal pericardium without effusion. No pleural effusion. Great Vessels Normal aortic root dimension. The aortic arch and great vessels are well seen and are normal. CONCLUSIONS 1. Severely decreased EF of 25-30 % with impaired LV relaxation with severe anteroseptal hypokinesis. 2. Mild mitral regurgitation. 3. Trace tricuspid regurgitation. 4. Mild aortic regurgitation. 5.Trace pulmonic regurgitation. Fish Vargas M.D. (Electronically Signed) Final Date: 23 July 2017 13:30 MEASUREMENTS (Male / Female) Normal Values 2D ECHO LV Diastolic Diameter PLAX 5.2 cm 4.2 - 5.9 / 3.9 - 5.3 cm LV Systolic Diameter PLAX 4.2 cm 2.1 - 4.0 cm LV Fractional Shortening PLAX 19.2 % 25 - 46 % LV Ejection Fraction 2D Teich 39.3 % IVS Diastolic Thickness 0.9 cm LVPW Diastolic Thickness 1.0 cm LV Relative Wall Thickness 0.4 RV Internal Dim ED PLAX 3.0 cm 1.9 - 3.8 cm LVOT Diameter 1.8 cm Aortic Root Diameter 2.8 cm LA Systolic Diameter LX 3.1 cm 3.0 - 4.0 / 2.7 - 3.8 cm DOPPLER AV Peak Velocity 159.0 cm/s AV Peak Gradient 10.1 mmHg AV Mean Velocity 100.0 cm/s AV Mean Gradient 5.0 mmHg AV Velocity Time Integral 24.1 cm AI Deceleration [place] 266.0 cm/s AI Peak Velocity 432.0 cm/s AI Pressure Half Time 476.0 ms AI Peak Gradient 74.6 mmHg LVOT Peak Velocity 112.0 cm/s LVOT Peak Gradient 5.0 mmHg LVOT Mean Velocity 69.4 cm/s LVOT Mean Gradient 2.0 mmHg LVOT Velocity Time Integral 14.8 cm LVOT Stroke Volume 37.7 cm AV Area Cont Eq vti 1.6 cm AV Area Cont Eq pk 1.8 cm MV Peak Velocity 70.2 cm/s MV Peak Gradient 2.0 mmHg MV Mean Velocity 43.0 cm/s MV Mean Gradient 1.0 mmHg Mitral E Point Velocity 52.8 cm/s Mitral A Point Velocity 79.0 cm/s Mitral E to A Ratio 0.7 MV PHT Velocity 60.8 cm/s MV Deceleration [place] 153.0 cm/s MV Pressure Half Time 119.2 ms MV Area PHT 1.8 cm MV Deceleration Time 327.0 ms MR Peak Velocity 554.0 cm/s MR Peak Gradient 122.8 mmHg PV Peak Velocity 97.9 cm/s PV Peak Gradient 3.8 mmHg PV Mean Velocity 59.5 cm/s PV Mean Gradient 2.0 mmHg PV Velocity Time Integral 14.8 cm LV E' Lateral Velocity 6.9 cm/s Mitral E to LV E' Lateral Ratio 7.6 LV E' Septal Velocity 4.2 cm/s Mitral E to LV E' Septal Ratio 12.6
--- NOTE | 2017-07-23 14:52 | Event Note ---
Event Note Event Note: Situation Patient appears to have new bundle branch block on telemetry Background 56 year old woman with mutliple medical problems significant for ESRD noncompliant with hemdialysis and medications, chronic homelessness, and polysubstance abuse admitted for acute onset shortness of breath due to pulmonary edema. Patient underwent hemodialysis and developed worsening shortness of breath for which she was intubated. Assessment Given patients previous EKGs demonstrating non-specific ischemic changes an repeat EKG demonstrated new T-wave inversions with persistence of the previous ST segment changes. Patients cardiology Dr. Vargas was made aware and agreed with this assessment and recommended further stratification with cardiac catheterization at some point in time; possibly before discharge. Her echocardiogram demonstrated a markedly reduced ejection fraction of 20-25% with severe anterior hypokinesis and various valvular disorders. Patient may require and ICD and possible PCI. Plan -Continue telemetry -Continue hemodialysis -Weaning trials, extubate when able -Psych and social consults for patients psychosocial issues -Further cardiac stratification with eventual cardiac cath and possible PCI -Possible future AICD placement -Continue beta-blockade
--- NOTE | 2017-07-23 15:04 | PN- Nephrology ---
Assessment/Plan Nephrology Assessment: 1. ESRD complicated by noncompliance including no dialysis treatments over the past 2 weeks 2. Pulmonary edema markedly improved post intubation and removal of relatively modest amounts of fluid by urgent hemodialysis late yesterday 3. Polysubstance abuse Suggestion: 1. Hemodialysis again today, this time for 3 hours with ultrafiltration as tolerated 2. Extubation planned for later today after dialysis session completed 3. Psychiatry follow-up 4. Next dialysis after today tentatively scheduled for 07/25 Subjective Subjective: Patient remains intubated and vented although fully awake and requiring periodic sedation. Seen twice with her second hemodialysis. Unable to ultrafilter more than 1-2 L because of tachycardia indicating that she does not have much excess volume to remove. Toxicology results noted. Her dialysis catheter flow was inadequate last evening presumably because it had not been used or flushed for several weeks. Dialysis was resumed yesterday after a one hour TPA dwell which was repeated this morning prior to today's dialysis. Finally, she is currently on ceftriaxone and azithromycin for possible pulmonary infection. Objective Vital Signs and I&Os Vital Signs Date Time Temp Pulse Resp B/P B/P Pulse O2 O2 Flow FiO2 Mean Ox Delivery Rate 04/ 1344 40 04/03 1200 100 Ventilator 40% 04/03 1200 98.2 87 17 140/78 100 Ventilator 40% 04/03 1124 40 04/03 0821 50 04/03 0800 98.6 86 16 134/76 100 Ventilator 50% 04/03 0800 100 Ventilator 50% 04/03 0551 50 04/03 0400 100 Ventilator 50% 04/03 0301 50 04/03 0041 50 04/03 0000 99.3 84 16 150/70 100 Ventilator 50% 04/03 0000 100 Ventilator 50% 04/02 2233 50 04/02 2106 60 04/1999 97 Ventilator 100% 04/02 1812 Ventilator 100% 04/02 1745 100 04/02 1630 94 Non 100% ReBreather 04/02 1624 98.9 108 28 183/88 97 Non 100% ReBreather 04/02 1520 98.5 111 28 211/102 98 Non 100% ReBreather Intake & Output / 1600 04/ 0400 07/22 1600 07/22 0400 07/21 1600 07/21 0400 Intake Total 620 196 Output Total 1850 135 Balance -1230 61 Intake, IV 410 196 Intake, Oral 0 Intake, Other 210 Number 2 0 Bowel Movements Output, 1623 Dialysate Output, 200 100 Gastric Drainage Output, Urine 27 35 Patient 99 lb 105 lb 99 lb 15.99 oz Weight Weight Bed scale Reported by Patient Estimated Measurement Method Physical Exam: General: Chronically ill-appearing white female, intubated, vented, awake and easily agitated Skin: No rash or jaundice HEENT: Conjunctivae pink, sclerae anicteric, intubated Neck: Without masses or thyromegaly, no supraclavicular or cervical adenopathy, there is a right IJ tunneled dialysis catheter in place Chest: Essentially clear anterolaterally Heart: Regular rate and rhythm without S3 or rub Abdomen: Soft and nontender without palpable masses or organomegaly Extremities: Without cyanosis or edema Neuro: No focal findings, no asterixis or myoclonus Results Pertinent Lab Results: Laboratory Tests 07/23 07/23 07/23 1230 0800 0405 Chemistry Sodium (137 - 145 mmol/L) 138 Potassium (3.5 - 5.1 mmol/L) 5.8 H Chloride (98 - 107 mmol/L) 104 Carbon Dioxide (22 - 30 mmol/L) 18 L Anion Gap (5 - 16) 16 BUN (7 - 17 mg/dL) 60 H Creatinine (0.5 - 1.0 mg/dL) 9.3 *H Estimated GFR (>60 ml/min) 4 L Glucose (65 - 99 mg/dL) 113 H Calcium (8.4 - 10.2 mg/dL) 9.0 Phosphorus (2.5 - 4.5 mg/dL) 5.3 H Magnesium (1.6 - 2.3 mg/dL) 1.7 Total Bilirubin (0.2 - 1.3 mg/dL) 0.7 AST (14 - 36 U/L) 17 ALT (9 - 52 U/L) 20 Troponin I (< 0.11 ng/ml) 0.07 Albumin (3.5 - 5.0 g/dL) 3.4 L Serology Hep Bs Antigen (NONREACTIVE) NONREACTIVE 07/23 07/23 07/22 0405 0020 2245 Chemistry Sodium (137 - 145 mmol/L) 137 142 Potassium (3.5 - 5.1 mmol/L) 6.3 *H 5.3 H Chloride (98 - 107 mmol/L) 104 107 Carbon Dioxide (22 - 30 mmol/L) 19 L 17 L Anion Gap (5 - 16) 14 18 H BUN (7 - 17 mg/dL) 56 H 55 H Creatinine (0.5 - 1.0 mg/dL) 9.1 *H 8.8 *H Estimated GFR (>60 ml/min) 5 L 5 L Glucose (65 - 99 mg/dL) 117 H 118 H Calcium (8.4 - 10.2 mg/dL) 9.0 9.2 Phosphorus (2.5 - 4.5 mg/dL) 4.7 H 4.7 H Magnesium (1.6 - 2.3 mg/dL) 1.7 1.7 Total Bilirubin (0.2 - 1.3 mg/dL) 0.8 0.9 AST (14 - 36 U/L) 19 25 ALT (9 - 52 U/L) 14 19 Troponin I (< 0.11 ng/ml) 0.06 Albumin (3.5 - 5.0 g/dL) 3.7 3.9 Hematology CBC w Diff MAN DIFF ORDERED WBC (4.8 - 10.8 /CUMM) 14.8 H RBC (4.20 - 5.40 /CUMM) 3.40 L Hgb (12.0 - 16.0 G/DL) 10.5 L Hct (37 - 47 %) 31.5 L MCV (81.0 - 99.0 FL) 92.6 MCH (27.0 - 31.0 PG) 30.8 MCHC (33.0 - 37.0 G/DL) 33.2 RDW (11.5 - 14.5 %) 15.3 H Plt Count (130 - 400 /CUMM) 183 MPV (7.4 - 10.4 FL) 9.1 Gran % (42.2 - 75.2 %) 88.8 H Lymphocytes % (20.5 - 51.1 %) 7.6 L Monocytes % (1.7 - 9.3 %) 3.5 Eosinophils % (0 - 5 %) 0.1 Basophils % (0.0 - 2.0 %) 0 Absolute Granulocytes (1.4 - 6.5 /CUMM) 13.1 H Segmented Neutrophils (42.2 - 75.2 %) 90 H Absolute Lymphocytes (1.2 - 3.4 /CUMM) 1.1 L Lymphocytes (20.5 - 51.1 %) 9 L Monocytes (1.7 - 9.3 %) 1 L Absolute Monocytes (0.10 - 0.60 /CUMM) 0.5 Absolute Eosinophils (0.0 - 0.7 /CUMM) 0 Absolute Basophils (0.0 - 0.2 /CUMM) 0 Platelet Estimate (ADEQUATE) ADEQUATE Normochromic RBCs VERIFIED Poikilocytosis 1+ Ovalocytes 1+ Other Body Source Fld Total RBCs Counted (%) 100 07/22 Blood Gas pH (7.35 - 7.45 PH) 7.22 *L pCO2 (35 - 45 TORR) 32 L pO2 (80 - 100 TORR) 149 H HCO3 (21 - 28 MEQ/L) 13 L ABG O2 Sat (Measured) (>96.0 %) 97.0 P-50 (Temp Corrected) N Carboxyhemoglobin (1.5 - 5.0 %) 0.7 L O2 Concentration % 100 Temperature (97.0 - 100.0 FARH) 97.0 Respiration Rate (BPM) 16 O2 Delivery Method ESPRIT Vent Mode AC Expiratory Pressure (CMH2O/P) 5 Tidal Volume (CC) 500 Miscellaneous Phlebotomy Draw Site RIGHT BRACHIAL Toxicology Urine Opiates Screen (>2000 NG/ML) > 4000.00 H Methadone Screen (>300 NG/ML) 69 Barbiturate Screen (>200 NG/ML) < 60 Ur Phencyclidine Scrn (>25 NG/ML) < 6.00 Amphetamines Screen (>1000 NG/ML) < 100 U Benzodiazepines Scrn (>200 NG/ML) > 800 H Urine Cocaine Screen (>300 NG/ML) > 1000 H Urine Cannabis Screen (>50 NG/ML) 29.80 Urines Urinalysis MOD H Urine Color (YEL,AMB,STR) YEL Urine Clarity (CLEAR) HAZY H Urine pH (5.0 - 8.0) 6.0 Ur Specific [place] (1.001 - 1.035) 1.020 Urine Protein (NEG,<30 MG/DL) >=300 H Urine Ketones (NEG) NEG Urine Nitrite (NEG) NEG Urine Bilirubin (NEG) NEG Urine Urobilinogen (0.1 - 1.0 EU/dl) 0.2 Ur Leukocyte Esterase (NEG) NEG Ur Microscopic SEDIMENT EXAMINED Urine RBC (0 - 5 /HPF) 15-25 H Urine WBC (0 - 2 /HPF) 10-15 H Ur Epithelial Cells (NONE,FEW) MANY H Urine Hemoglobin (NEG) SMALL H Urine Glucose (N MG/DL) NEG 07/22 07/22 07/22 1537 1300 1300 Chemistry Sodium (137 - 145 mmol/L) 144 Potassium (3.5 - 5.1 mmol/L) 6.1 *H Chloride (98 - 107 mmol/L) 115 H Carbon Dioxide (22 - 30 mmol/L) 11 L Anion Gap (5 - 16) 17 H BUN (7 - 17 mg/dL) 82 H Creatinine (0.5 - 1.0 mg/dL) 12.6 *H Estimated GFR (>60 ml/min) 3 L BUN/Creatinine Ratio (7 - 25 %) 6.5 L Glucose (65 - 99 mg/dL) 100 H Lactic Acid (0.7 - 2.1 mmol/L) 1.2 0.8 Calcium (8.4 - 10.2 mg/dL) 9.7 Total Bilirubin (0.2 - 1.3 mg/dL) 0.8 AST (14 - 36 U/L) 15 ALT (9 - 52 U/L) 20 Alkaline Phosphatase (<127 U/L) 95 Troponin I (< 0.11 ng/ml) 0.05 Total Protein (6.3 - 8.2 g/dL) 7.3 Albumin (3.5 - 5.0 g/dL) 4.0 Globulin (1.9 - 4.2 gm/dL) 3.3 Albumin/Globulin Ratio (1.1 - 2.2 %) 1.2 Coagulation PT (9.4 - 12.5 SEC) 12.3 INR (0.90 - 1.19) 1.13 APTT (25 - 37 SEC) 26 Hematology CBC w Diff MAN DIFF ORDERED WBC (4.8 - 10.8 /CUMM) 18.0 H RBC (4.20 - 5.40 /CUMM) 3.52 L Hgb (12.0 - 16.0 G/DL) 10.8 L Hct (37 - 47 %) 32.3 L MCV (81.0 - 99.0 FL) 91.6 MCH (27.0 - 31.0 PG) 30.7 MCHC (33.0 - 37.0 G/DL) 33.5 RDW (11.5 - 14.5 %) 15.4 H Plt Count (130 - 400 /CUMM) 250 MPV (7.4 - 10.4 FL) 8.8 Gran % (42.2 - 75.2 %) 93.3 H Lymphocytes % (20.5 - 51.1 %) 3.0 L Monocytes % (1.7 - 9.3 %) 3.3 Eosinophils % (0 - 5 %) 0.3 Basophils % (0.0 - 2.0 %) 0.1 Absolute Granulocytes (1.4 - 6.5 /CUMM) 16.8 H Segmented Neutrophils (42.2 - 75.2 %) 86 H Band Neutrophils (0.0 - 5.0 %) 4 Absolute Lymphocytes (1.2 - 3.4 /CUMM) 0.5 L Lymphocytes (20.5 - 51.1 %) 6 L Monocytes (1.7 - 9.3 %) 4 Absolute Monocytes (0.10 - 0.60 /CUMM) 0.6 Absolute Eosinophils (0.0 - 0.7 /CUMM) 0 Absolute Basophils (0.0 - 0.2 /CUMM) 0 Platelet Estimate (ADEQUATE) ADEQUATE Normocytic RBCs VERIFIED Normochromic RBCs VERIFIED Poikilocytosis FEW [place] Cells FEW 07/22 1235 Blood Gas pH (7.35 - 7.45 PH) 7.26 *L pCO2 (35 - 45 TORR) 25 L pO2 (80 - 100 TORR) 84 HCO3 (21 - 28 MEQ/L) 11 L ABG O2 Sat (Measured) (>96.0 %) 94.0 L Carboxyhemoglobin (1.5 - 5.0 %) 1.4 L O2 Concentration % 100% O2 Delivery Method RICARDO MASK Miscellaneous Phlebotomy Draw Site RIGHT BRACHIAL
[2017-07-23 16:00] VITALS: BP 124/72
--- NOTE | 2017-07-23 17:25 | RADIOLOGY REPORT ---
EXAMINATION: XR PORTABLE CHEST CLINICAL INFORMATION: End-stage renal disease. Status post hemodialysis. Respiratory failure status post intubation. COMPARISON: Several prior chest x-rays, most recent of which is dated 07/22/2017. TECHNIQUE: Portable AP semierect view of the chest was obtained. FINDINGS: Enteric tube is seen coursing into the abdomen with tip not included. Right subclavian dialysis catheter is seen with tip in the right atrium. Endotracheal tube is in place with tip approximately 6 cm above the jose. Several EKG and other leads/tubing overlie the chest. The cardiomediastinal silhouette is within normal limits in size. Lungs bilaterally are symmetrically expanded. There has been dramatic resolution in the previously seen diffuse pulmonary edema with only a small amount of reticular opacities in the inferior right upper lung and in the left lung base remaining, perhaps representing atelectatic changes. No overt pulmonary edema or significant central vascular congestion is seen on the current exam. There is some indistinctness of the left CP angle and left hemidiaphragm, suggestive of a trace pleural effusion. Bony structures are grossly unremarkable. IMPRESSION: 1. Lines and tubes in place as discussed above. 2. Interval resolution of previously seen pulmonary edema with trace residual left-sided pleural effusion and associated left basilar subsegmental atelectasis. 3. Some reticular opacities remain in the inferior aspect of the right upper lung, possibly due to subsegmental atelectasis. Attention on follow-up is recommended.
[2017-07-24] VITALS: BP 95/58
[2017-07-24 04:19] LABS: ABSOLUTE BASOPHIL COUNT 0 /CUMM (0.0-0.2); ABSOLUTE EOSINOPHIL COUNT 0.1 /CUMM (0.0-0.7); ABSOLUTE LYMPH COUNT 2.2 /CUMM (1.2-3.4)
[2017-07-24 04:41] LABS: ABSOLUTE MONOCYTE COUNT 0.6 /CUMM (0.10-0.60); BASOPHIL % 0.3 % (0.0-2.0); EOSINOPHIL % 0.5 % (0-5); GRANULOCYTE % 73.2 % (42.2-75.2); MEAN CORPUSCULAR HGB 30.2 PG (27.0-31.0); MEAN CORPUSCULAR HGB CONC 32.7 G/DL (33.0-37.0); MEAN CORPUSCULAR VOLUME 92.3 FL (81.0-99.0); MEAN PLATELET VOLUME 9.9 FL (7.4-10.4); RBC DISTRIBUTION WIDTH 15.1 % (11.5-14.5); RED BLOOD CELL CT 3.26 /CUMM (4.20-5.40); WHITE BLOOD CELL COUNT 10.9 /CUMM (4.8-10.8)
[2017-07-24 04:45] LABS: PLATELET COUNT 169 /CUMM (130-400)
--- NOTE | 2017-07-24 07:12 | PN- Resident CRCU ---
See Addendum Russell PERALTA,Emmanuel 07/24/17 0711: Subjective HPI/CRCU Issues: Patient seen and examined. She is seen lying on her side in bed resting comfortably maintained on supplemental oxygen via nasal cannula. She appears to be in no acute distress. She reports she is feeling well and "wants to eat". She denies any new complaints. Objective Vital Signs & I&O Last 8 Hrs of Vitals and I&O: Tele HR SBP Exam General Appearance: alert, awake Other Physical Findings: GEN: thin, ill appearing, middle aged woman in no acute distress HEENT: NCAT, PERRLA, EOMI, anicteric sclera, MMM, nasal cannula in place NECK: Supple, no JVD, trachea midline CARD: Normal S1/S2 w/o m/g/r; RRR PULM: Diminished bibasilar airflow with scattered rhonchit ABD: Soft, NT, ND, BS+ : Franklin catheter in place without any urine output NEURO: Sedated, spontaneous movement of all four extremities EXT: Normal pulses, no cyanosis, clubbing, or edema Weaning Parameters NIF: 51 Resp rate: 28 Vt: 321 Heart Rate: 110 Weaning Schedule Start Time: 1605 Minute Volume: 9.90 Resp Rate: 25 Vt: 525 Heart Rate: 110 End Time: 1653 Minute Volume: 11.4 Resp Rate: 20 Vt: 468 Heart Rate: 109 Current Medications: Current Medications Sig/Nhi Start time Last Medication Dose Route Stop Time Status Admin Acetaminophen 650 MG Q6P PRN 07/22 1545 AC PO Acetaminophen 1,000 MG Q6P PRN 07/22 1545 AC IV Alprazolam 0.5 MG TID 07/22 2200 AC 07/23 PO 07/29 2159 2204 Alteplase, 6 MG ONE ONE 07/23 1000 DC 07/23 Recombinant IV 07/23 1001 1012 Alteplase, 2 MG ONE ONE 07/23 0945 CAN Recombinant IV 07/23 0946 Amlodipine Besylate 10 MG DAILY 07/23 1000 DC PO Azithromycin 500 MG DAILY 07/23 1000 AC 07/23 Dextrose/Water 250 ML IV 1556 Ceftriaxone Sodium 1,000 MG DAILY 07/23 1000 AC 07/23 IV 1556 Epoetin Evan 8,000 UNIT TuThSa PRN 07/23 1430 AC 07/23 IV 1449 Fentanyl Citrate 100 MCG Q72H 07/23 1745 AC 07/23 TOP 1816 Fentanyl Citrate 1,000 MCG Q10H 07/23 1300 DC 04/ Dextrose/Water 250 ML IV 1330 Fentanyl Citrate 1,000 MCG Q24H 07/22 1830 DC / Dextrose/Water 250 ML IV 07/23 1259 0305 Heparin Sodium 5,000 UNIT Q8 07/22 2200 AC 07/23 (Porcine) SC 2205 Hydromorphone HCl 2 MG .STK-MED ONE 07/23 1144 DC IM 07/23 1145 Labetalol HCl 200 MG BID 07/23 2200 AC 07/23 PO 2204 Lisinopril 5 MG DAILY 07/23 1257 AC 07/23 PO 1557 Non-Formulary 0 SEE ADMIN CRITERIA 07/23 1215 AC 07/23 Medication ANY 1200 Non-Formulary 0 SEE ADMIN CRITERIA 07/23 1145 AC 07/23 Medication ANY 1150 Pantoprazole Sodium 40 MG DAILY 07/22 2230 AC 07/23 IV 1556 Polyethylene Glycol 17 GM DAILY PRN 07/22 1545 AC PO Impression/Plan Impression/Problem List Impression: 56 year old woman with multiple medical problems significant for ESRD noncompliant with HD and polysubstance dependence seen for evaluation of shortness of breath found to have acute pulmonary edema. Patient was admitted to the ICU for urgent dialysis but was subsequently intubated. Patients continues to remain afebrile wild essentially normal WBC count while on antibiotic for community acquire pneumonia. Cultures still remain no growth to date. Patient was extubated yesterday afternoon and taken off IV fentanyl. She successfully completed her hemodialysis session yesterday. Franklin catheter was discontinued. She continues to complaint of pain despite having a 100 mcg fentanyl patch; oxycodone was added for breakthrough pain. Ceftriaxone / Azithromycin were converted to renally dosed oral augmentin to complete a 7 day total antibiotic course. Echocardiogram yesterday demosntrated a markedly reduced LVEF with severe anterior wall hypokinesis. Patient will require uptitration of her medications for systolic heart failure and close outpatient follow up with further cardiac stratification and possible AICD placement. She is a poor candidate for percutaneous intervention as it will likely require dual-antiplatelet therapy; patient is notoriously non-compliant with her medicaitons. Patient is to be kept NPO overnight for exchange of her Alberto Cath over guide wire tomorrow with intervential radiology. Problem List -Acute Pulmonary Edema -Acute Hypoxic Respiratory failure s/p intubation, resolved -Community Acquired Pneumonia, improving -Hypertension -ESRD on HD -Coronary artery disease -Chronic pain -Traumatic Brain Injury -Benzodiazepine/Opiate dependence -Tobacco abuse -Hypertension Plan -Transfer to telemetry floor -Telemetry monitoring -NPO for Alberto Cath exchange -S/P extubation -TRC -Supplemental oxygen, goal > 92%, taper as tolerated -Hemodialysis per nephrology -Franklin discontinued -Fentanyl 100 mcg PATCH Q72H -Ceftriaxone / Azithromycin disontinued -Augmentin 500 mg PO Daily started, 7 day total antibiotic course -Protonix discontinued -Calcium carbonate 1250mg PO TIDAC started -Continue Lisinopril 5 mg PO Daily -Continue Labetalol 200 mg PO BID -Hold amlodipine -Continue meds: Alprazolam -Nephrology following for dialysis -Cardiology following for pulmonary edema -Change alberto cath when patient agreeable -Pain control with acetaminophen, fentayl patch, oxycodone -Renal dialysis diet with 1200ml fluid restriction and 70g protein -DVT PPx with subcutaneous heparin -FULL CODE -Outpatient cardiovascular stratification with cardiac cath and possible AICD Problem List: 1. Acute pulmonary edema 2. Pneumonia Pain Ratin Tomorrow's Labs & Rationales: CBC, BMP Plan DVT/Prophylaxis: mechanical, pharmacological Zac Escoto MD 07/24/17 1225: Attending MD Review Statement Attending Sign Off Attending Cosign Statement: I have: examined this patient, reviewed [facility] EMR data, personally reviewd images, discussd w/resident/PA/DIRECTOR OF PHYSICIAN PRACTICES, discussed mgmt plan w/franklin, discussed mgmt plan w/CM, discussed mgmt plan w/pt, agreed w/resident/PA/DIRECTOR OF PHYSICIAN PRACTICES, amended to note. Other Findings: Impression 56 year old woman * ESRD requiring HD - non adherence * chronic pain syndrome Plan -pt extubated -f/u neprhology -her HD catheter will require exchange/revision and the patient at this point is reluctant -psychiatry is called to assess her decision making ability -her insurance needs to be reinstated as well to ensure she is able to obtain medications on an outpatient basis - for this social work/case management have been contacted -will treat her pain in the meantime DVT prophylaxis at all times TTS 35 min
[2017-07-24 08:00] VITALS: BP 110/60
[2017-07-24] MEDS ORDERED: LISINOPRIL5 M1 PO (09:21)
[2017-07-24] MEDS ORDERED: LABETALOL HCL200 M1 PO (09:21)
--- NOTE | 2017-07-24 09:32 | Patient Discharge Instructions ---
Discharge Instructions General Discharge Information You were seen/treated for: Pulmonary edema You had these procedures: intubation hemodialysis Watch for these problems: shortness of breath chest pain nausea or vomiting weakness change in urination fever Special Instructions: You have decided to LEAVE AGAINST MEDICAL ADVICE. Doing so may result in worsening of your clinical condition and possibly . If you have worsening of your symptoms contact 911 or return to the ED. Stop taking Amlodipine. Start Taking Labetalol and Lisinopril as directed. Take your antibiotic as directed, be sure to finish this medication. Make sure you attend your hemodialysis sessions. Schedule an appointment with your administrative manager for further testing. You are on a large amount of benzodiazepines. We recommend you work with your PCP to wean off these medications gradually as they have addictive potential and a life threatening withdrawl syndrome Activity Activity Self Limited: Yes Acute Coronary Syndrome Inclusion Criteria At DC or during hospital stay patient has or had the following: ACS DIAGNOSIS No Discharge Core Measures Meds if any: Prescribed or Continued at Discharge Meds if any: NOT Prescribed or Continued at Discharge Congestive Heart Failure Inclusion Criteria At DC or during hospital stay patient has or had the following: CHF DIAGNOSIS Yes Discharge Core Measures Meds if any: Prescribed or Continued at Discharge HARDY/ARB for EF <40% Yes Meds if any: NOT Prescribed or Continued at Discharge Cerebrovascular accident Inclusion Criteria At DC or during hospital stay patient has or had the following: CVA/TIA Diagnosis No Discharge Core Measures Meds if any: Prescribed or Continued at Discharge Meds if any: NOT Prescribed or Continued at Discharge Venous thromboembolism Inclusion Criteria VTE Diagnosis No VTE Type NONE VTE Confirmed by (Test) NONE Discharge Core Measures - Per Current guidelines, there needs to be overlap - treatment for the first 5 days of Warfarin therapy. - If discharged on Warfarin prior to 5 days of - overlap therapy, the patient will need to be - assessed for post discharge needs including - *Post discharge parental anticoagulation - *Warfarin and/or parental anticoagulation education - *Follow up date to check INR post discharge At least 5 days overlap therapy as Inpatient No Meds if any: Prescribed or Continued at Discharge Note: Overlap Therapy is Warfarin and Anticoagulant Meds if any: NOT Prescribed or Continued at Discharge
--- NOTE | 2017-07-24 12:14 | PN- Nephrology ---
Assessment/Plan Nephrology Assessment: 1. ESRD complicated by noncompliance with medication and dialysis regimen 2. Pulmonary edema requiring temporary intubation and ventilatory support as well as urgent hemodialysis - now resolved 3. ?Cardiac ischemia 4. Polysubstance abuse Suggestion: 1. No dialysis need today; will tentatively schedule for tomorrow 2. Please ask IR to look at her tunneled catheter to see if they can replace a broken plastic clamp 3. Consider discontinuing antibiotic therapy soon 4. Calcium carbonate 1250 mg by mouth 3 times a day with meals 5. Diet: 2 g sodium, 2 g potassium, 60-70 g protein, 1200 mL fluid limit per day 6. Cardiology, Psych and social service following Subjective Subjective: Patient was extubated. Looks and feels much better today. Labs reviewed. Phosphorus elevated at 5.8. Objective Vital Signs and I&Os Vital Signs Date Time Temp Pulse Resp B/P B/P Pulse O2 O2 Flow FiO2 Mean Ox Delivery Rate 07/24 08 98.8 65 11 110/60 99 Nasal 3.0L Cannula 07/24 08 99 Nasal 3.0L Cannula 07/24 0400 99 Nasal 3.0L Cannula 07/24 0000 97.3 76 22 95/58 97 Nasal 3.0L Cannula 07/24 0000 97 Nasal 3.0L Cannula 07/23 2204 98.2 96 3 150/79 07/23 2000 98 Nasal 3.0L Cannula 07/23 1612 40 04/03 1600 100 Ventilator 40% / 1600 98.1 103 21 124/72 100 Ventilator 40% / 1344 40 Intake & Output 07/24 1600 07/24 0400 07/23 1600 07/23 0400 07/22 1600 07/22 0400 Intake Total 0 500 620 196 Output Total 30 1000 1850 135 Balance -30 -500 -1230 61 Intake, IV 0 500 410 196 Intake, Oral 0 0 Intake, Other 210 Number 0 2 0 Bowel Movements Output, 1000 1623 Dialysate Output, 200 100 Gastric Drainage Output, Urine 30 27 35 Patient 100 lb 99 lb 105 lb 99 lb 15.99 oz Weight Weight Bed scale Bed scale Reported by Patient Estimated Measurement Method Physical Exam: General: Chronically ill-appearing white female, awake, alert and in no acute distress Skin: No rash or jaundice HEENT: Conjunctivae pink, sclerae anicteric, intubated Neck: Without masses or thyromegaly, no supraclavicular or cervical adenopathy, there is a right IJ tunneled dialysis catheter in place Chest: Clear to P&A bilaterally Heart: Regular rate and rhythm without S3 or rub Abdomen: Soft and nontender without palpable masses or organomegaly Extremities: Without cyanosis or edema Neuro: No focal findings, no asterixis or myoclonus Results Pertinent Lab Results: Laboratory Tests 07/24 07/23 07/23 0355 1230 0800 Chemistry Sodium (137 - 145 mmol/L) 137 138 Potassium (3.5 - 5.1 mmol/L) 4.6 5.8 H Chloride (98 - 107 mmol/L) 98 104 Carbon Dioxide (22 - 30 mmol/L) 25 18 L Anion Gap (5 - 16) 15 16 BUN (7 - 17 mg/dL) 32 H 60 H Creatinine (0.5 - 1.0 mg/dL) 5.4 *H 9.3 *H Estimated GFR (>60 ml/min) 8 L 4 L Glucose (65 - 99 mg/dL) 111 H 113 H Calcium (8.4 - 10.2 mg/dL) 9.1 9.0 Phosphorus (2.5 - 4.5 mg/dL) 5.8 H 5.3 H Magnesium (1.6 - 2.3 mg/dL) 1.9 1.7 Total Bilirubin (0.2 - 1.3 mg/dL) 0.8 0.7 AST (14 - 36 U/L) 18 17 ALT (9 - 52 U/L) 15 20 Albumin (3.5 - 5.0 g/dL) 3.5 3.4 L Hematology CBC w Diff NO MAN DIFF REQ WBC (4.8 - 10.8 /CUMM) 10.9 H RBC (4.20 - 5.40 /CUMM) 3.26 L Hgb (12.0 - 16.0 G/DL) 9.8 L Hct (37 - 47 %) 30.0 L MCV (81.0 - 99.0 FL) 92.3 MCH (27.0 - 31.0 PG) 30.2 MCHC (33.0 - 37.0 G/DL) 32.7 L RDW (11.5 - 14.5 %) 15.1 H Plt Count (130 - 400 /CUMM) 169 MPV (7.4 - 10.4 FL) 9.9 Gran % (42.2 - 75.2 %) 73.2 Lymphocytes % (20.5 - 51.1 %) 20.1 L Monocytes % (1.7 - 9.3 %) 5.9 Eosinophils % (0 - 5 %) 0.5 Basophils % (0.0 - 2.0 %) 0.3 Absolute Granulocytes (1.4 - 6.5 /CUMM) 8.0 H Absolute Lymphocytes (1.2 - 3.4 /CUMM) 2.2 Absolute Monocytes (0.10 - 0.60 /CUMM) 0.6 Absolute Eosinophils (0.0 - 0.7 /CUMM) 0.1 Absolute Basophils (0.0 - 0.2 /CUMM) 0 Serology Hep Bs Antigen (NONREACTIVE) NONREACTIVE 07/23 07/23 07/23 07/22 0405 0405 0020 2245 Chemistry Sodium (137 - 145 mmol/L) 137 142 Potassium (3.5 - 5.1 mmol/L) 6.3 *H 5.3 H Chloride (98 - 107 mmol/L) 104 107 Carbon Dioxide (22 - 30 mmol/L) 19 L 17 L Anion Gap (5 - 16) 14 18 H BUN (7 - 17 mg/dL) 56 H 55 H Creatinine (0.5 - 1.0 mg/dL) 9.1 *H 8.8 *H Estimated GFR (>60 ml/min) 5 L 5 L Glucose (65 - 99 mg/dL) 117 H 118 H Calcium (8.4 - 10.2 mg/dL) 9.0 9.2 Phosphorus (2.5 - 4.5 mg/dL) 4.7 H 4.7 H Magnesium (1.6 - 2.3 mg/dL) 1.7 1.7 Total Bilirubin (0.2 - 1.3 mg/dL) 0.8 0.9 AST (14 - 36 U/L) 19 25 ALT (9 - 52 U/L) 14 19 Troponin I (< 0.11 ng/ml) 0.07 0.06 Albumin (3.5 - 5.0 g/dL) 3.7 3.9 Hematology CBC w Diff MAN DIFF ORDERED WBC (4.8 - 10.8 /CUMM) 14.8 H RBC (4.20 - 5.40 /CUMM) 3.40 L Hgb (12.0 - 16.0 G/DL) 10.5 L Hct (37 - 47 %) 31.5 L MCV (81.0 - 99.0 FL) 92.6 MCH (27.0 - 31.0 PG) 30.8 MCHC (33.0 - 37.0 G/DL) 33.2 RDW (11.5 - 14.5 %) 15.3 H Plt Count (130 - 400 /CUMM) 183 MPV (7.4 - 10.4 FL) 9.1 Gran % (42.2 - 75.2 %) 88.8 H Lymphocytes % (20.5 - 51.1 %) 7.6 L Monocytes % (1.7 - 9.3 %) 3.5 Eosinophils % (0 - 5 %) 0.1 Basophils % (0.0 - 2.0 %) 0 Absolute Granulocytes (1.4 - 6.5 /CUMM) 13.1 H Segmented Neutrophils (42.2 - 75.2 %) 90 H Absolute Lymphocytes (1.2 - 3.4 /CUMM) 1.1 L Lymphocytes (20.5 - 51.1 %) 9 L Monocytes (1.7 - 9.3 %) 1 L Absolute Monocytes (0.10 - 0.60 /CUMM) 0.5 Absolute Eosinophils (0.0 - 0.7 /CUMM) 0 Absolute Basophils (0.0 - 0.2 /CUMM) 0 Platelet Estimate (ADEQUATE) ADEQUATE Normochromic RBCs VERIFIED Poikilocytosis 1+ Ovalocytes 1+ Other Body Source Fld Total RBCs Counted (%) 100 07/22 Blood Gas pH (7.35 - 7.45 PH) 7.22 *L pCO2 (35 - 45 TORR) 32 L pO2 (80 - 100 TORR) 149 H HCO3 (21 - 28 MEQ/L) 13 L ABG O2 Sat (Measured) (>96.0 %) 97.0 P-50 (Temp Corrected) N Carboxyhemoglobin (1.5 - 5.0 %) 0.7 L O2 Concentration % 100 Temperature (97.0 - 100.0 FARH) 97.0 Respiration Rate (BPM) 16 O2 Delivery Method ESPRIT Vent Mode AC Expiratory Pressure (CMH2O/P) 5 Tidal Volume (CC) 500 Miscellaneous Phlebotomy Draw Site RIGHT BRACHIAL Toxicology Urine Opiates Screen (>2000 NG/ML) > 4000.00 H Methadone Screen (>300 NG/ML) 69 Barbiturate Screen (>200 NG/ML) < 60 Ur Phencyclidine Scrn (>25 NG/ML) < 6.00 Amphetamines Screen (>1000 NG/ML) < 100 U Benzodiazepines Scrn (>200 NG/ML) > 800 H Urine Cocaine Screen (>300 NG/ML) > 1000 H Urine Cannabis Screen (>50 NG/ML) 29.80 Urines Urinalysis MOD H Urine Color (YEL,AMB,STR) YEL Urine Clarity (CLEAR) HAZY H Urine pH (5.0 - 8.0) 6.0 Ur Specific [place] (1.001 - 1.035) 1.020 Urine Protein (NEG,<30 MG/DL) >=300 H Urine Ketones (NEG) NEG Urine Nitrite (NEG) NEG Urine Bilirubin (NEG) NEG Urine Urobilinogen (0.1 - 1.0 EU/dl) 0.2 Ur Leukocyte Esterase (NEG) NEG Ur Microscopic SEDIMENT EXAMINED Urine RBC (0 - 5 /HPF) 15-25 H Urine WBC (0 - 2 /HPF) 10-15 H Ur Epithelial Cells (NONE,FEW) MANY H Urine Hemoglobin (NEG) SMALL H Urine Glucose (N MG/DL) NEG 07/22 07/22 07/22 1537 1300 1300 Chemistry Sodium (137 - 145 mmol/L) 144 Potassium (3.5 - 5.1 mmol/L) 6.1 *H Chloride (98 - 107 mmol/L) 115 H Carbon Dioxide (22 - 30 mmol/L) 11 L Anion Gap (5 - 16) 17 H BUN (7 - 17 mg/dL) 82 H Creatinine (0.5 - 1.0 mg/dL) 12.6 *H Estimated GFR (>60 ml/min) 3 L BUN/Creatinine Ratio (7 - 25 %) 6.5 L Glucose (65 - 99 mg/dL) 100 H Lactic Acid (0.7 - 2.1 mmol/L) 1.2 0.8 Calcium (8.4 - 10.2 mg/dL) 9.7 Total Bilirubin (0.2 - 1.3 mg/dL) 0.8 AST (14 - 36 U/L) 15 ALT (9 - 52 U/L) 20 Alkaline Phosphatase (<127 U/L) 95 Troponin I (< 0.11 ng/ml) 0.05 Total Protein (6.3 - 8.2 g/dL) 7.3 Albumin (3.5 - 5.0 g/dL) 4.0 Globulin (1.9 - 4.2 gm/dL) 3.3 Albumin/Globulin Ratio (1.1 - 2.2 %) 1.2 Coagulation PT (9.4 - 12.5 SEC) 12.3 INR (0.90 - 1.19) 1.13 APTT (25 - 37 SEC) 26 Hematology CBC w Diff MAN DIFF ORDERED WBC (4.8 - 10.8 /CUMM) 18.0 H RBC (4.20 - 5.40 /CUMM) 3.52 L Hgb (12.0 - 16.0 G/DL) 10.8 L Hct (37 - 47 %) 32.3 L MCV (81.0 - 99.0 FL) 91.6 MCH (27.0 - 31.0 PG) 30.7 MCHC (33.0 - 37.0 G/DL) 33.5 RDW (11.5 - 14.5 %) 15.4 H Plt Count (130 - 400 /CUMM) 250 MPV (7.4 - 10.4 FL) 8.8 Gran % (42.2 - 75.2 %) 93.3 H Lymphocytes % (20.5 - 51.1 %) 3.0 L Monocytes % (1.7 - 9.3 %) 3.3 Eosinophils % (0 - 5 %) 0.3 Basophils % (0.0 - 2.0 %) 0.1 Absolute Granulocytes (1.4 - 6.5 /CUMM) 16.8 H Segmented Neutrophils (42.2 - 75.2 %) 86 H Band Neutrophils (0.0 - 5.0 %) 4 Absolute Lymphocytes (1.2 - 3.4 /CUMM) 0.5 L Lymphocytes (20.5 - 51.1 %) 6 L Monocytes (1.7 - 9.3 %) 4 Absolute Monocytes (0.10 - 0.60 /CUMM) 0.6 Absolute Eosinophils (0.0 - 0.7 /CUMM) 0 Absolute Basophils (0.0 - 0.2 /CUMM) 0 Platelet Estimate (ADEQUATE) ADEQUATE Normocytic RBCs VERIFIED Normochromic RBCs VERIFIED Poikilocytosis FEW Sarbjit Cells FEW 07/22 1235 Blood Gas pH (7.35 - 7.45 PH) 7.26 *L pCO2 (35 - 45 TORR) 25 L pO2 (80 - 100 TORR) 84 HCO3 (21 - 28 MEQ/L) 11 L ABG O2 Sat (Measured) (>96.0 %) 94.0 L Carboxyhemoglobin (1.5 - 5.0 %) 1.4 L O2 Concentration % 100% O2 Delivery Method RICARDO MASK Miscellaneous Phlebotomy Draw Site RIGHT BRACHIAL
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
--- NOTE | 2017-07-24 14:27 | PN- Cardiology ---
Subjective Subjective: * Patient complains of pain. No chest discomfort or shortness of breath. * sinus rhythm * Severely decreased EF of 25-30% with mild MR and AI. * creatinine improved to 5.4 Objective Vital Signs and I&Os Vital Signs Date Time Temp Pulse Resp B/P B/P Pulse O2 O2 Flow FiO2 Mean Ox Delivery Rate 07/25 799 98.8 65 11 110/60 99 Nasal 3.0L Cannula 07/24 08 99 Nasal 3.0L Cannula 07/24 0400 99 Nasal 3.0L Cannula 07/24 0000 97.3 76 22 95/58 97 Nasal 3.0L Cannula 07/24 0000 97 Nasal 3.0L Cannula 07/23 2204 98.2 96 3 150/79 07/23 2000 98 Nasal 3.0L Cannula 07/23 1612 40 07/23 1600 100 Ventilator 40% 07/23 1600 98.1 103 21 124/72 100 Ventilator 40% Intake & Output 07/24 0807/24 0000 07/23 0800 07/23 0000 Intake Total 480 0 500 390 230 196 Output Total 40 30 1000 2 1848 135 Balance 440 -30 -500 388 -1618 61 Intake, IV 0 500 210 200 196 Intake, Oral 480 0 0 Intake, Other 180 30 Number 1 0 2 0 0 Bowel Movements Output, 1000 1623 Dialysate Output, 200 100 Gastric Drainage Output, Urine 40 30 2 25 35 Patient 100 lb 99 lb 105 lb Weight Weight Bed scale Bed scale Reported by Patient Measurement Method Physical Exam: General: WD/WN female; intubated, awake and responsive. Heart: RRR with 2/6 systolic murmur at the LLSB Lungs: clear anteriorly Extremties: no edema Assessment/Plan Assessment/Plan * This patient had pulmonary edema that was likely due to her failure to be compliant with dialysis. In this setting she also has an increased potassium level. Her potassium and creatinine are improving with dialysis. No current symptoms of decompensated CHF. * This patient did have some ischemic ST-T changes in the setting of respiratory distress and decreased oxygen saturation. In consideration of her severely decreased EF with anterior regional wall motion abnormality and risk factors I suspect that she has ischemic coronary artery disease. A cardiac catheterization is recommended when more stable. In addition, this patient has a murmur of mitral regurgitation which may be related to ischemia induced papillary muscle dysfunction. 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 This patient will need an ICD. * This patient had severe hypertension upon initial presentation that was likely related to both fluid overload and increased stress hormones and perhaps cocaine. In addition to dialysis, continue labatolol 200mg BID which also has alpha blocking effects and continue Lisinopril at 5mg daily. * This patient did have an elevated WBC count which may have been reactive related to stress although the patient has been treated with antibiotics. She did demonstrate a purulent urine. * Check a TSH and free T4. Continue telemetry? Yes
[2017-07-24] MEDS ORDERED: AUGMENTIN 500-1 EACH PO (15:05)
[2017-07-24] MEDS ORDERED: CALCIUM CARBON500 M2 PO (15:08)
[2017-07-24 16:18] VITALS: BP 172/80
[2017-07-25] VITALS: BP 160/70
[2017-07-25 04:45] LABS: ABSOLUTE BASOPHIL COUNT 0 /CUMM (0.0-0.2); ABSOLUTE EOSINOPHIL COUNT 0.5 /CUMM (0.0-0.7); ABSOLUTE GRANULOCYTE CT 4.6 /CUMM (1.4-6.5); ABSOLUTE LYMPH COUNT 2.6 /CUMM (1.2-3.4); ABSOLUTE MONOCYTE COUNT 0.6 /CUMM (0.10-0.60); BASOPHIL % 0.2 % (0.0-2.0); EOSINOPHIL % 6.5 % (0-5); GRANULOCYTE % 55.3 % (42.2-75.2); HEMATOCRIT 29.2 % (37-47); MEAN CORPUSCULAR HGB 30.4 PG (27.0-31.0); MEAN CORPUSCULAR HGB CONC 32.7 G/DL (33.0-37.0); MEAN CORPUSCULAR VOLUME 93.1 FL (81.0-99.0); MEAN PLATELET VOLUME 9.5 FL (7.4-10.4); PLATELET COUNT 178 /CUMM (130-400); RBC DISTRIBUTION WIDTH 14.8 % (11.5-14.5); RED BLOOD CELL CT 3.14 /CUMM (4.20-5.40); WHITE BLOOD CELL COUNT 8.3 /CUMM (4.8-10.8)
[2017-07-25 05:54] LABS: PT 12.3 SEC (9.4-12.5)
--- NOTE | 2017-07-25 07:17 | PN- Housestaff ---
Subjective Follow-up For: Pulmonary edema ESRD HFrEF Subjective: Patient seen and examined. She is seen lying on her side in bed resting comfortably. She appears to be in no acute distress. She reports that the pain medications did not give her an adequate amount of pain relief. She would not characterize if it didnt last or if the pain reduction was inadequate. She is tangential and kept reiterating that the "rain" made her pain worse and would not give a number scale to her pain. She reports sleeping poorly and states that she is "getting out of here today" after the Karson Cath replacement this morning. Review of systems are limited. Review of Systems Constitutional: Reports: see HPI. Objective Last 24 Hrs of Vital Signs/I&O Vital Signs Date Time Temp Pulse Resp B/P B/P Pulse O2 O2 Flow FiO2 Mean Ox Delivery Rate 07/25 0000 98.3 74 18 160/70 96 Room Air Room Air 07/24 2207 74 160/70 07/24 1618 98.6 82 18 172/80 96 Room Air 07/24 1600 96 Room Air Intake & Output 07/25 1600 07/25 0800 07/25 0000 Intake Total 0 200 Output Total 10 Balance -10 200 Intake, Oral 0 200 Number 0 Bowel Movements Output, Urine 10 Physical Exam General Appearance: Alert, Oriented X3, Cooperative, No Acute Distress Other Physical Findings: GEN: thin, ill appearing, middle aged woman in no acute distress HEENT: NCAT, PERRLA, EOMI, anicteric sclera, MMM, nasal cannula in place NECK: Supple, no JVD, trachea midline CARD: Normal S1/S2 w/o m/g/r; RRR PULM: Diminished bibasilar airflow with scattered rhonchi ABD: Soft, NT, ND, BS+ : Franklin catheter in place without any urine output NEURO: Sedated, spontaneous movement of all four extremities EXT: Normal pulses, no cyanosis, clubbing, or edema Current Medications: Current Medications Sig/Nhi Start time Last Medication Dose Route Stop Time Status Admin Acetaminophen 650 MG Q6P PRN 07/22 1545 AC PO Acetaminophen 1,000 MG Q6P PRN 07/22 1545 AC IV Alprazolam 1 MG TID 07/24 2199 AC 07/24 PO 07/31 Alprazolam 0.5 MG TID 07/22 2199 DC 07/24 PO 07/29 2159 1020 Amoxicillin/ 875 MG Q12 07/24 1000 DC Clavulanate Potassium PO Amoxicillin/ 500 MG DAILY 07/24 1000 AC 07/24 Clavulanate Potassium PO 1611 Azithromycin 500 MG DAILY 07/23 1000 DC 07/23 Dextrose/Water 250 ML IV 1556 Calcium Carbonate 1,250 MG TIDAC 07/24 1700 AC 07/24 PO 1757 Ceftriaxone Sodium 1,000 MG DAILY 07/23 1000 DC 07/23 IV 1556 Diphenhydramine HCl 25 MG ONCE ONE 07/24 2245 DC 07/24 PO 07/24 2246 2246 Epoetin Evan 8,000 UNIT TuThSa PRN 07/23 1430 AC 07/23 IV 1449 Fentanyl Citrate 100 MCG Q72H 07/23 1745 DC 07/23 TOP 1816 Heparin Sodium 5,000 UNIT Q8 07/22 2200 AC 07/24 (Porcine) SC 2203 Hydromorphone HCl 4 MG Q6P PRN 07/24 1600 AC 07/25 PO 0358 Labetalol HCl 200 MG BID 07/23 2200 AC 07/24 PO 2207 Lisinopril 5 MG DAILY 07/23 1257 AC 07/24 PO 1021 Melatonin 3 MG ONCE ONE 07/24 2245 DC 07/24 PO 07/24 2246 2246 Non-Formulary 0 SEE ADMIN CRITERIA 07/23 1215 DC 07/23 Medication ANY 1200 Non-Formulary 0 SEE ADMIN CRITERIA 07/23 1145 DC 07/23 Medication ANY 1150 Oxycodone HCl 5 MG Q6P PRN 07/24 1000 DC 07/24 PO 1020 Pantoprazole Sodium 40 MG DAILY 07/22 2230 DC 07/23 IV 1556 Polyethylene Glycol 17 GM DAILY PRN 07/22 1545 AC PO Last 24 Hrs of Lab/Adonay Results Last 24 Hrs of Labs/Mics: Laboratory Tests 07/25/17 0530: PT 12.3, INR 1.13 07/25/17 0420: Anion Gap 17 H, Estimated GFR 6 L, Glucose 108 H, Calcium 8.8, Phosphorus 4.5 , Magnesium 1.9, Total Bilirubin 0.8, AST 20, ALT 25, Albumin 3.5, CBC w Diff NO MAN DIFF REQ, RBC 3.14 L, MCV 93.1, MCH 30.4, MCHC 32.7 L, RDW 14.8 H, MPV 9.5, Gran % 55.3, Lymphocytes % 31.3, Monocytes % 6.7, Eosinophils % 6.5 H, Basophils % 0.2, Absolute Granulocytes 4.6, Absolute Lymphocytes 2.6, Absolute Monocytes 0.6, Absolute Eosinophils 0.5, Absolute Basophils 0 Assessment/Plan Assessment: 56 year old woman with multiple medical problems significant for ESRD noncompliant with HD and polysubstance dependence seen for evaluation of shortness of breath found to have acute pulmonary edema. Patient was admitted to the ICU for urgent dialysis but was subsequently intubated. Patient is on Augmentin, antibiotic day 4 , for her community acquired pneumonia. She remains afebrile with improved leukocytosis. Cultures continue to remain no growth to date. Fentanyl patch was discontinued at patients request yesterday because "it didnt do anything" and she was started on oral dilaudid. She is NPO for exchange of her Karson Cath over guidewire by interventional radiology today. She declined Hemodialysis today. She is refusing care and is still considering possibly having the cardiac catheterization with possible AICD placement. Problem List -Acute Pulmonary Edema, resolved -Acute Hypoxic Respiratory failure s/p intubation, resolved -Community Acquired Pneumonia, improving -Hypertension -ESRD on HD -Coronary artery disease -Chronic pain -Traumatic Brain Injury -Benzodiazepine/Opiate dependence -Tobacco abuse -Hypertension Plan -Transfer to telemetry floor -Telemetry monitoring -S/P Karson Cath exchange -S/P extubation -TRC -Hemodialysis per nephrology -Dilaudid 4 mg PO Q6H PRN -Augmentin 500 mg PO Daily, day -Calcium carbonate 1250mg PO TIDAC -Continue Lisinopril 5 mg PO Daily -Continue Labetalol 200 mg PO BID -Hold amlodipine -Continue meds: Alprazolam -Nephrology following for dialysis -Cardiology following for pulmonary edema -Pain control with acetaminophen, dilaudid -Renal dialysis diet with 1200ml fluid restriction and 70g protein -DVT PPx with subcutaneous heparin -FULL CODE -Outpatient cardiovascular stratification with cardiac cath and possible AICD Problem List: 1. Pneumonia Pain Ratin Pain Location: Diffuse Pain Goal: Pain 7 or less Pain Plan: See assessment Tomorrow's Labs & Rationales: None See assessment
[2017-07-25 08:00] VITALS: BP 124/70
[2017-07-25 16:00] VITALS: BP 122/70
--- NOTE | 2017-07-25 16:27 | INTERVENTIONAL RADIOLOGY RPT ---
CLINICAL HISTORY: This patient is a 56 year old female with end-stage renal disease, who presents to Interventional Radiology for dialysis catheter exchange. The existing catheter is a broken. PROCEDURES: [id number] exchange of the tunneled hemodialysis catheter. PHYSICIANS: Dr. Bhargav Byrnes (attending). MONITORING: The procedure was performed with intravenous analgesia under my direct supervision. Continuous blood pressure, pulse oximetry as well as heart rate monitoring was performed by an independent registered nurse. MEDICATIONS: 1. Fentanyl 100 mcg IV were administered. 2. Lidocaine 1%, 10 mL SQ. 3. Lidocaine 1% with epinephrine, 15 mL subcutaneous CONTRAST: None FLUOROSCOPY TIME: 0.7 minutes DAP: 2.0 uGym2 COMPLICATIONS: None ESTIMATED BLOOD LOSS: Trace SPECIMENS: None IMPLANT: None SITE MARKING: As part of the preprocedure verification policy, a site marking procedure was initiated. Due to the nature the procedure, the insertion site could not be predetermined thus invoking the policy of exemption to site laterality and marking. Insertion site marking was performed in the procedure room in conjunction with imaging confirmation. PROCEDURE NOTE: Informed consent was obtained from the patient prior to the procedure. During this process, the procedure and potential alternatives were explained along with the intended outcome and benefits. The risks of the procedure, including the possibility of an unsuccessful procedure, as well as the risk of not doing the procedure, were discussed. The patient was given the opportunity to ask questions regarding the procedure and appeared competent to make decisions. A signed consent form documenting this discussion was placed in the medical record. A time-out procedure was performed. The right upper chest, neck and existing tunneled dialysis catheter were prepped and draped in usual sterile fashion. All elements of maximal sterile barrier technique followed including use of cap, mask, sterile gown, sterile gloves, a sterile full body drape and hand hygiene. Also followed skin preparation with 2% chlorhexidine for cutaneous antisepsis, and sterile ultrasound preparation with sterile gel and probe cover when applicable. Lidocaine was used for local anesthesia around the existing internal jugular tunneled hemodialysis catheter. The cuff of the existing hemodialysis catheter was loosened using blunt dissection. Two 0.035 inch stiff glide wires were advanced through both ports of the existing tunneled hemodialysis catheter into the IVC. The existing catheter was removed. A new hemodialysis catheter was advanced over the 2 wires until the distal tip was located at the high right atrium. Following fluoroscopic confirmation of positioning, the catheter was aspirated and flushed with heparinized saline. A spot film was obtained. The catheter was secured in place with 2-0 suture. The patient tolerated the procedure well without immediate complication. FINDINGS: 1. The existing tunneled right IJ hemodialysis catheter was a 16-Indian 28 cm double lumen catheter. 2. The existing catheter had broken clasps. 3. Successful exchange with a new 16-Indian 28 cm (23 cm tip to cuff) double lumen catheter. The new catheter flushes and aspirates easily, and the tip is located in the high right atrium. IMPRESSION: Successful exchange of the tunneled hemodialysis catheter. PLAN: 1. The patient was stable after the procedure and was transferred to the interventional recovery area. The patient will be transferred back to her medical room. 2. The new hemodialysis catheter may be used immediately.
--- NOTE | 2017-07-25 17:49 | PN- Cardiology ---
Subjective Subjective: * Patient reports a mild midsternal chest discomfort without shortness of breath. * Yesterday, the patient reported that she was going to leave. * sinus rhythm * Severely decreased EF of 25-30% with mild MR and AI. Objective Vital Signs and I&Os Vital Signs Date Time Temp Pulse Resp B/P B/P Pulse O2 O2 Flow FiO2 Mean Ox Delivery Rate 07/25 1600 9.2 86 20 122/70 96 Room Air 07/25 0800 99.2 70 24 124/70 95 Room Air 07/25 0000 98.3 74 18 160/70 96 Room Air Room Air 07/24 2207 74 160/70 Intake & Output 07/25 1600 07/25 0800 07/25 0000 07/24 1600 07/24 0800 07/24 0000 Intake Total 220 0 200 480 0 500 Output Total 0 10 40 30 1000 Balance 220 -10 200 440 -30 -500 Intake, IV 20 0 500 Intake, Oral 200 0 200 480 0 Number 0 0 1 0 Bowel Movements Output, 1000 Dialysate Output, Urine 0 10 40 30 Patient 99 lb 15.99 oz 100 lb Weight Weight Bed scale Measurement Method Physical Exam: General: WD/WN female; intubated, awake and responsive. Heart: RRR with 2/6 systolic murmur at the LLSB Lungs: clear anteriorly Extremties: no edema Assessment/Plan Assessment/Plan * This patient had pulmonary edema that was likely due to her failure to be compliant with dialysis. In this setting she also has an increased potassium level. Her potassium and creatinine are improving with dialysis. No current symptoms of decompensated CHF. * This patient did have some ischemic ST-T changes in the setting of respiratory distress and decreased oxygen saturation. In consideration of her severely decreased EF with anterior regional wall motion abnormality and risk factors I suspect that she has ischemic coronary artery disease. A cardiac catheterization is indicated but the patient continues to exhibit a non-compliance with medical recommendations and advice. There is no benefit to a cardiac catheterization if PCI is not purused if needed. I am very reluctant to pursue PCI in a patient that has shown non-compliance with medications and office visits since acute closure of a stent could result in a life threatening MA which would be a poor tradeoff to treat her angina. We will therefore opt to risk stratify her with a treadmill nuclear stress test and reassess a cardiac catheterization if there is evidence of a large or life-threatening region of ischemia. 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 This patient may receive benefit from an ICD but due to her comorbidities and compliance issues including her unwillingness to participate in dialysis which is another life threatening issue I think we should obtain the opinion of an tire builder operator regarding this issue. The situation has been discussed with Dr. Carter and he feels that we should hold off on an ICD for now but the patient will be evaluated by him on Saturday. * This patient had severe hypertension upon initial presentation that was likely related to both fluid overload and increased stress hormones and perhaps cocaine. In addition to dialysis, continue labatolol 200mg BID which also has alpha blocking effects and continue Lisinopril at 5mg daily. * This patient did have an elevated WBC count which may have been reactive related to stress although the patient has been treated with antibiotics. She did demonstrate a purulent urine. * Check a TSH and free T4. Continue telemetry? Yes
[2017-07-25 19:56] VITALS: BP 116/68
[2017-07-26] VITALS: BP 88/60
--- NOTE | 2017-07-26 07:16 | PN- Housestaff ---
See Addendum Russell PERALTAEmmanuel 07/26/17 0716: Subjective Follow-up For: Pulmonary edema ESRD HFrEF Tele-Events Since Last Visit: NSR Subjective: Patient seen and examined. She is seen lying flat in bed resting comfortably breathing room air. She appears to be in no acute distress. She reports that she is breathing well. She admits her chest still hurts around the site of the Karson Cath and that she still has diffuse body pain. She continues to decline hemodialysis or other interventions. Review of Systems Constitutional: Reports: see HPI. Objective Last 24 Hrs of Vital Signs/I&O Vital Signs Date Time Temp Pulse Resp B/P B/P Pulse O2 O2 Flow FiO2 Mean Ox Delivery Rate 07/26 0000 95 Room Air 07/26 0000 98.2 68 16 88/60 95 Room Air / 1956 98.7 76 18 116/68 97 /05 1600 9.2 86 20 122/70 96 Room Air / 0800 99.2 70 24 124/70 95 Room Air Intake & Output 07/26 0800 04/ 0000 04/05 1600 Intake Total 70 440 220 Output Total 100 100 0 Balance -30 340 220 Intake, IV 20 Intake, Oral 70 440 200 Number 0 Bowel Movements Output, Urine 100 100 0 Patient 45.359 kg Weight Physical Exam General Appearance: Alert, Oriented X3, Cooperative, No Acute Distress Other Physical Findings: GEN: thin, ill appearing, middle aged woman in no acute distress HEENT: NCAT, PERRLA, EOMI, anicteric sclera, MMM, nasal cannula in place NECK: Supple, no JVD, trachea midline CARD: Normal S1/S2 w/o m/g/r; RRR PULM: Diminished bibasilar airflow with scattered rhonchi ABD: Soft, NT, ND, BS+ NEURO: Awake and alert, CN II-XII grossly intact PSYCH: Tearful, agitated, tangential, poor eye contact, apathetic affect EXT: Normal pulses, no cyanosis, clubbing, or edema Current Medications: Current Medications Sig/Nhi Start time Last Medication Dose Route Stop Time Status Admin Acetaminophen 650 MG Q6P PRN 07/22 1545 AC PO Acetaminophen 1,000 MG Q6P PRN 07/22 1545 AC IV Alprazolam 1 MG TID 07/24 2199 AC 07/25 PO 04/11 2159 2151 Amoxicillin/ 500 MG DAILY 07/24 1000 AC 07/25 Clavulanate Potassium PO 1147 Calcium Carbonate 1,250 MG TIDAC 07/24 1700 AC 07/25 PO 1801 Epoetin Evan 8,000 UNIT TuThSa PRN 07/23 1430 AC 07/23 IV 1449 Fentanyl Citrate 0 .STK-MED ONE 07/25 1055 DC .ROUTE Heparin Sodium 0 .STK-MED ONE 07/25 1001 DC (Porcine) IV Heparin Sodium 5,000 UNIT Q8 07/22 2200 AC 07/24 (Porcine) SC 2203 Hydromorphone HCl 4 MG Q6P PRN 07/24 1600 AC 07/26 PO 0053 Labetalol HCl 200 MG BID 07/23 2200 AC 07/25 PO 2151 Lidocaine 0 .STK-MED ONE 07/25 1001 DC .ROUTE Lidocaine/Epinephrine 0 .STK-MED ONE 07/25 1001 DC .ROUTE Lisinopril 5 MG DAILY 07/23 1257 AC 07/25 PO 1148 Polyethylene Glycol 17 GM DAILY PRN 07/22 1545 AC PO Promethazine HCl 25 MG Q4P PRN 07/25 1345 AC 07/25 IV 08/01 1344 1357 Assessment/Plan Assessment: 56 year old woman with multiple medical problems significant for ESRD noncompliant with HD and polysubstance dependence seen for evaluation of shortness of breath found to have acute pulmonary edema. Patient was admitted to the ICU for urgent dialysis but was subsequently intubated. Patient remains comfortably on room air without any respiratory distress. She is on Augmentin day five of seven for her community acquired pneumonia. She remains afebrile with clinical improvement of her symptoms. She uneventfully underwent replacement of her Karson Cath over guide wire by interventional radiology yesterday. She continues to deny cardiac assessment or hemodialysis. She remains on oral dilaudid but admits to extreme diffuse chronic pain. Patient reportedly submitted her insurance paperwork, but needs to "appear" in the office to have it reinstated. Problem List -Acute Pulmonary Edema, resolved -Acute Hypoxic Respiratory failure s/p intubation, resolved -Community Acquired Pneumonia, improving -Hypertension -ESRD on HD -Coronary artery disease -Chronic pain -Traumatic Brain Injury -Benzodiazepine/Opiate dependence -Tobacco abuse -Hypertension Plan -Telemetry hold in the ICU -Telemetry monitoring -S/P Karson Cath exchange -S/P extubation -TRC -Hemodialysis per nephrology -Dilaudid 4 mg PO Q6H PRN -Augmentin 500 mg PO Daily, day 5 / 7 -Calcium carbonate 1250mg PO TIDAC -Continue Lisinopril 5 mg PO Daily -Continue Labetalol 200 mg PO BID -Hold amlodipine -Continue meds: Alprazolam -Nephrology following for dialysis -Cardiology following for pulmonary edema -Pain control with acetaminophen, dilaudid -Renal dialysis diet with 1200ml fluid restriction and 70g protein -DVT PPx with subcutaneous heparin -FULL CODE -Outpatient cardiovascular stratification with cardiac cath and possible AICD Problem List: 1. Pneumonia Pain Ratin Pain Location: Diffuse Pain Goal: Pain 7 or less Pain Plan: See assessment Tomorrow's Labs & Rationales: As needed with hemodialysis Damon Mendoza MD 07/26/17 1559: Attending MD Review Statement Attending Statement Attending MD Statement: examined this patient, discuss w/resident/PA/WELFARE SPECIALIST, agreed w/resident/PA/WELFARE SPECIALIST, discussed with family, reviewed EMR data (avail), discussed with nursing, amended to note Attending Assessment/Plan: The patient was seen and discussed with house staff, nursing, family (sister present). Cardiology and Nephrology input appreciated. Had lengthy discussion with patient and she is now agreeing to be compliant with dialysis tomorrow and also agrees to cardiac catheterization as recommended by Dr. Vargas (with possible stenting). Will undergo dialysis tomorrow. Dr. Carter to also see and will discuss further with Dr. Vargas regarding cath scheduling. She will take meds- statin, etc.
[2017-07-26 07:58] VITALS: BP 110/60
--- NOTE | 2017-07-26 15:43 | PN- Nephrology ---
Assessment/Plan Nephrology Assessment: 1. ESRD complicated by noncompliance with medication and dialysis regimen 2. Pulmonary edema requiring temporary intubation and ventilatory support as well as urgent hemodialysis - now resolved 3. Cardiomyopathy, likely ischemic 4. Polysubstance abuse Suggestion: 1. No urgent dialysis need today which is fortunate since patient is refusing it anyway. She is agreeable to a dialysis treatment tomorrow. 2. Hemodialysis tomorrow via her new right IJ tunneled dialysis catheter 3. Further cardiologic intervention per cardiology service 4. Social service and psychiatry following Subjective Subjective: Patient continues to have some discomfort around her dialysis catheter site. Otherwise without specific complaints and she is certainly not short of breath. Refuses to consider dialysis today. She is currently deciding whether she would be willing to undergo further cardiac evaluation. Objective Vital Signs and I&Os Vital Signs Date Time Temp Pulse Resp B/P B/P Pulse O2 O2 Flow FiO2 Mean Ox Delivery Rate 07/26 0758 97.8 80 20 110/60 97 Room Air 07/26 0000 95 Room Air 07/26 0000 98.2 68 16 88/60 95 Room Air 07/25 1956 98.7 76 18 116/68 97 07/25 1600 9.2 86 20 122/70 96 Room Air Intake & Output 07/26 1600 07/26 0400 07/25 1600 07/25 0400 07/24 1600 07/24 0400 Intake Total 470 440 220 200 480 500 Output Total 200 100 10 70 1000 Balance 270 340 210 200 410 -500 Intake, IV 0 20 0 500 Intake, Oral 470 440 200 200 480 Number 0 0 1 Bowel Movements Output, 1000 Dialysate Output, Urine 200 100 10 70 Patient 99 lb 15.99 oz 100 lb Weight Weight Bed scale Measurement Method Physical Exam: General: Chronically ill-appearing white female, awake, alert and in no acute distress Skin: No rash or jaundice HEENT: Conjunctivae pink, sclerae anicteric, intubated Neck: Without masses or thyromegaly, no supraclavicular or cervical adenopathy, there is a right IJ tunneled dialysis catheter in place Chest: Clear to P&A bilaterally Heart: Regular rate and rhythm without S3 or rub Abdomen: Soft and nontender without palpable masses or organomegaly Extremities: Without cyanosis or edema Neuro: Awake and alert, no focal findings, no asterixis or myoclonus Results Pertinent Lab Results: Laboratory Tests 07/25 07/25 5286 2110 Chemistry Sodium (137 - 145 mmol/L) 136 L Potassium (3.5 - 5.1 mmol/L) 3.6 Chloride (98 - 107 mmol/L) 98 Carbon Dioxide (22 - 30 mmol/L) 20 L Anion Gap (5 - 16) 17 H BUN (7 - 17 mg/dL) 52 H Creatinine (0.5 - 1.0 mg/dL) 7.6 *H Estimated GFR (>60 ml/min) 6 L Glucose (65 - 99 mg/dL) 108 H Calcium (8.4 - 10.2 mg/dL) 8.8 Phosphorus (2.5 - 4.5 mg/dL) 4.5 Magnesium (1.6 - 2.3 mg/dL) 1.9 Total Bilirubin (0.2 - 1.3 mg/dL) 0.8 AST (14 - 36 U/L) 20 ALT (9 - 52 U/L) 25 Albumin (3.5 - 5.0 g/dL) 3.5 TSH (0.270 - 4.200 uIU/mL) 8.470 H Free T4 (0.64 - 1.79 ng/dL) 1.33 Coagulation PT (9.4 - 12.5 SEC) 12.3 INR (0.90 - 1.19) 1.13 Hematology CBC w Diff NO MAN DIFF REQ WBC (4.8 - 10.8 /CUMM) 8.3 RBC (4.20 - 5.40 /CUMM) 3.14 L Hgb (12.0 - 16.0 G/DL) 9.5 L Hct (37 - 47 %) 29.2 L MCV (81.0 - 99.0 FL) 93.1 MCH (27.0 - 31.0 PG) 30.4 MCHC (33.0 - 37.0 G/DL) 32.7 L RDW (11.5 - 14.5 %) 14.8 H Plt Count (130 - 400 /CUMM) 178 MPV (7.4 - 10.4 FL) 9.5 Gran % (42.2 - 75.2 %) 55.3 Lymphocytes % (20.5 - 51.1 %) 31.3 Monocytes % (1.7 - 9.3 %) 6.7 Eosinophils % (0 - 5 %) 6.5 H Basophils % (0.0 - 2.0 %) 0.2 Absolute Granulocytes (1.4 - 6.5 /CUMM) 4.6 Absolute Lymphocytes (1.2 - 3.4 /CUMM) 2.6 Absolute Monocytes (0.10 - 0.60 /CUMM) 0.6 Absolute Eosinophils (0.0 - 0.7 /CUMM) 0.5 Absolute Basophils (0.0 - 0.2 /CUMM) 0 / 0355 Chemistry Sodium (137 - 145 mmol/L) 137 Potassium (3.5 - 5.1 mmol/L) 4.6 Chloride (98 - 107 mmol/L) 98 Carbon Dioxide (22 - 30 mmol/L) 25 Anion Gap (5 - 16) 15 BUN (7 - 17 mg/dL) 32 H Creatinine (0.5 - 1.0 mg/dL) 5.4 *H Estimated GFR (>60 ml/min) 8 L Glucose (65 - 99 mg/dL) 111 H Calcium (8.4 - 10.2 mg/dL) 9.1 Phosphorus (2.5 - 4.5 mg/dL) 5.8 H Magnesium (1.6 - 2.3 mg/dL) 1.9 Total Bilirubin (0.2 - 1.3 mg/dL) 0.8 AST (14 - 36 U/L) 18 ALT (9 - 52 U/L) 15 Albumin (3.5 - 5.0 g/dL) 3.5 Hematology CBC w Diff NO MAN DIFF REQ WBC (4.8 - 10.8 /CUMM) 10.9 H RBC (4.20 - 5.40 /CUMM) 3.26 L Hgb (12.0 - 16.0 G/DL) 9.8 L Hct (37 - 47 %) 30.0 L MCV (81.0 - 99.0 FL) 92.3 MCH (27.0 - 31.0 PG) 30.2 MCHC (33.0 - 37.0 G/DL) 32.7 L RDW (11.5 - 14.5 %) 15.1 H Plt Count (130 - 400 /CUMM) 169 MPV (7.4 - 10.4 FL) 9.9 Gran % (42.2 - 75.2 %) 73.2 Lymphocytes % (20.5 - 51.1 %) 20.1 L Monocytes % (1.7 - 9.3 %) 5.9 Eosinophils % (0 - 5 %) 0.5 Basophils % (0.0 - 2.0 %) 0.3 Absolute Granulocytes (1.4 - 6.5 /CUMM) 8.0 H Absolute Lymphocytes (1.2 - 3.4 /CUMM) 2.2 Absolute Monocytes (0.10 - 0.60 /CUMM) 0.6 Absolute Eosinophils (0.0 - 0.7 /CUMM) 0.1 Absolute Basophils (0.0 - 0.2 /CUMM) 0
[2017-07-26 16:00] VITALS: BP 110/60
--- NOTE | 2017-07-26 16:59 | PN- Cardiology ---
Subjective Subjective: * no complaints * sinus rhythm * decreased EF noted on echo * patient continues to refuse care at times Objective Vital Signs and I&Os Vital Signs Date Time Temp Pulse Resp B/P B/P Pulse O2 O2 Flow FiO2 Mean Ox Delivery Rate 07/26 0758 97.8 80 20 110/60 97 Room Air 07/26 0000 95 Room Air 07/26 0000 98.2 68 16 88/60 95 Room Air 07/25 1956 98.7 76 18 116/68 97 Intake & Output 07/26 0000 07/25 0000 Intake Total 400 70 440 220 0 200 Output Total 100 100 100 0 10 Balance 300 -30 340 220 -10 200 Intake, IV 0 20 Intake, Oral 400 70 440 200 0 200 Number 0 0 0 Bowel Movements Output, Urine 100 100 100 0 10 Patient 99 lb 15.99 oz Weight Physical Exam: General: WD/WN female; intubated, awake and responsive. Heart: RRR with 2/6 systolic murmur at the LLSB Lungs: clear anteriorly Extremties: no edema Assessment/Plan Assessment/Plan * This patient had pulmonary edema that was likely due to her failure to be compliant with dialysis. In this setting she also has an increased potassium level. Her potassium and creatinine are improving with dialysis. No current symptoms of decompensated CHF. * This patient did have some ischemic ST-T changes in the setting of respiratory distress and decreased oxygen saturation. In consideration of her severely decreased EF with anterior regional wall motion abnormality and risk factors I suspect that she has ischemic coronary artery disease. A cardiac catheterization is indicated but the patient continues to exhibit a non-compliance with medical recommendations and advice. There is no benefit to a cardiac catheterization if PCI is not purused if needed. I am very reluctant to pursue PCI in a patient that has shown non-compliance with medications and office visits since acute closure of a stent could result in a life threatening [place] which would be a poor tradeoff to treat her angina. We will therefore opt to risk stratify her with a treadmill nuclear stress test and reassess a cardiac catheterization if there is evidence of a large or life-threatening region of ischemia. 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 This patient may receive benefit from an ICD but due to her comorbidities and compliance issues including her unwillingness to participate in dialysis which is another life threatening issue I think we should obtain the opinion of an arborer regarding this issue. The situation has been discussed with Dr. Crater and he feels that we should hold off on an ICD for now but the patient will be evaluated by him on Saturday. Obtain a stress test on Saturday. * This patient had severe hypertension upon initial presentation that was likely related to both fluid overload and increased stress hormones and perhaps cocaine. In addition to dialysis, continue labatolol 200mg BID which also has alpha blocking effects and continue Lisinopril at 5mg daily. * This patient did have an elevated WBC count which may have been reactive related to stress although the patient has been treated with antibiotics. She did demonstrate a purulent urine. Continue telemetry? Yes
[2017-07-26 23:57] VITALS: BP 100/58
[2017-07-27 08:00] VITALS: BP 100/56
--- NOTE | 2017-07-27 08:18 | PN- Housestaff ---
Emmanuel Wells MD 07/27/17 0818: Subjective Follow-up For: Pulmonary edema ESRD HFrEF Subjective: Patient seen and examined. She is seen lying on her side in bed resting comfortably. She appears to be in no acute distress. She reports feeling well, but admits to a persistent headache with neck pain. She denies any new complaints, chest pain, or shortness of breath. Review of Systems Constitutional: Reports: see HPI. Objective Last 24 Hrs of Vital Signs/I&O Vital Signs Date Time Temp Pulse Resp B/P B/P Pulse O2 O2 Flow FiO2 Mean Ox Delivery Rate 07/28 799 97.7 66 20 100/56 97 Room Air 07/27 0800 97 Room Air 07/27 0000 95 Room Air 07/26 2357 98.7 73 24 100/58 95 Room Air 07/26 2200 98 Room Air 07/26 2031 80 16 114/60 07/26 1600 99.0 76 20 110/60 98 Room Air Intake & Output 07/27 1600 07/27 0800 07/27 0000 Intake Total 240 315 Output Total 100 Balance 240 215 Intake, IV 75 Intake, Oral 240 240 Number 0 Bowel Movements Output, Urine 100 Physical Exam General Appearance: Alert, Oriented X3, Cooperative, No Acute Distress Other Physical Findings: GEN: thin, ill appearing, middle aged woman in no acute distress HEENT: NCAT, PERRLA, EOMI, anicteric sclera, MMM, nasal cannula in place NECK: Supple, no JVD, trachea midline CARD: Normal S1/S2 w/o m/g/r; RRR PULM: Diminished bibasilar airflow with scattered rhonchi ABD: Soft, NT, ND, BS+ NEURO: Awake and alert, CN II-XII grossly intact PSYCH: good mood, eye contact EXT: Normal pulses, no cyanosis, clubbing, or edema Current Medications: Current Medications Sig/Nhi Start time Last Medication Dose Route Stop Time Status Admin Acetaminophen 650 MG Q6P PRN 07/22 1545 AC PO Acetaminophen 1,000 MG Q6P PRN 07/22 1545 AC IV Alprazolam 1 MG TID 07/24 2200 AC 07/27 PO 07/31 215 0933 Amoxicillin/ 500 MG DAILY 07/24 1000 AC 07/26 Clavulanate Potassium PO 07/28 2299 1128 Calcium Carbonate 1,250 MG TIDAC 07/24 1700 AC 07/27 PO 0811 Epoetin Evan 8,000 UNIT TuThSa PRN 07/23 1430 AC 07/23 IV 1449 Heparin Sodium 5,000 UNIT Q8 07/22 2200 AC 07/24 (Porcine) SC 2203 Hydromorphone HCl 4 MG Q6P PRN 07/24 1600 AC 07/27 PO 1031 Labetalol HCl 200 MG BID 07/23 2200 AC 07/26 PO 2031 Lisinopril 5 MG DAILY 07/23 1257 AC 07/26 PO 1128 Polyethylene Glycol 17 GM DAILY PRN 07/22 1545 AC PO Promethazine HCl 25 MG Q4P PRN 07/25 1345 AC 07/27 IV 08/01 1344 1031 Assessment/Plan Assessment: 56 year old woman with multiple medical problems significant for ESRD noncompliant with HD and polysubstance dependence seen for evaluation of shortness of breath found to have acute pulmonary edema. Patient was admitted to the ICU for urgent dialysis but was subsequently intubated. Patient remains comfortable without any chest pain or shortness of breath. She is to undergo hemodialysis today. She remains on dilaudid and phenergan for her pain and nausea. She is to be kept NPO on Saturday evening for a nuclears stress test on Saturday. She is to be evaluated by online content coordinator Dr. Jovani Carter on Saturday for consideration of an AICD. Problem List -Acute Pulmonary Edema, resolved -Acute Hypoxic Respiratory failure s/p intubation, resolved -Community Acquired Pneumonia, improving -Hypertension -ESRD on HD -Coronary artery disease -Chronic pain -Traumatic Brain Injury -Benzodiazepine/Opiate dependence -Tobacco abuse -Hypertension Plan -Telemetry hold in the ICU -Telemetry monitoring -NPO Saturday night for nuclear stress test Saturday -S/P Karson Cath exchange -S/P extubation -TRC -Hemodialysis per nephrology -Dilaudid 4 mg PO Q6H PRN -Augmentin 500 mg PO Daily, day 6/ -Calcium carbonate 1250mg PO TIDAC -Continue Lisinopril 5 mg PO Daily -Continue Labetalol 200 mg PO BID -Hold amlodipine -Continue meds: Alprazolam -Nephrology following for dialysis -Cardiology following for pulmonary edema -Pain control with acetaminophen, dilaudid -Renal dialysis diet with 1200ml fluid restriction and 70g protein -DVT PPx with subcutaneous heparin -FULL CODE Problem List: 1. Acute pulmonary edema 2. Pneumonia Pain Ratin Pain Location: Diffuse Pain Goal: Pain 7 or less Pain Plan: See assessment Tomorrow's Labs & Rationales: Labs with hemodialysis if needed Juan PERALTA,Kirill 07/27/17 1255: Attending MD Review Statement Attending Statement Attending MD Statement: examined this patient, discuss w/resident/PA/CLIP LOADING MACHINE FEEDER, agreed w/resident/PA/CLIP LOADING MACHINE FEEDER Attending Assessment/Plan: Patient complains of a headache is mostly right-sided behind her right eye. Her vital signs are stable and she is currently afebrile. Room air saturation is 97 %. Chest exam shows decreased air entry at the bases otherwise unremarkable. Labs currently are pending. Plans for hemodialysis today. Patient has agreed to cardiac catheterization early next week. Please follow-up lab work today. Continue her Tylenol for headache as when necessary Can try oral Motrin 400 mg every 6 by mouth when necessary
--- NOTE | 2017-07-27 14:04 | PN- Nephrology ---
Assessment/Plan Nephrology Assessment: #1 end-stage renal disease. Hemodialysis in progress 2. Suspected heart disease. Apparently Procardia Saturday. Did Not Discuss This with the Patient. 3. Volume Status If the weights are to be believed she is 7 kg below his stated dry weight. She does admit to losing weight. Suggestion: 1. Hemodialysis today 2. Next dialysis will be planned for Saturday Subjective Subjective: Patient seen with hemodialysis in progress. Objective Vital Signs and I&Os Vital Signs Date Time Temp Pulse Resp B/P B/P Pulse O2 O2 Flow FiO2 Mean Ox Delivery Rate 07/27 08 97.7 66 20 100/56 97 Room Air 07/27 0800 97 Room Air 07/27 0000 95 Room Air 07/26 2357 98.7 73 24 100/58 95 Room Air 07/26 2200 98 Room Air 07/26 2031 80 16 114/60 07/26 1600 99.0 76 20 110/60 98 Room Air Intake & Output 07/27 1600 07/27 0400 07/26 1600 07/26 0400 07/25 1600 07/25 0400 Intake Total 240 315 470 440 220 200 Output Total 100 200 100 10 Balance 240 215 270 340 210 200 Intake, IV 75 0 20 Intake, Oral 240 240 470 440 200 200 Number 0 0 0 Bowel Movements Output, Urine 100 200 100 10 Patient 99 lb 15.99 oz Weight Physical Exam General Appearance: well developed/nourished, no apparent distress, alert, awake Head: atraumatic Neck: normal inspection Respiratory: normal breath sounds Cardiovascular: regular rate/rhythm Abdomen: normal bowel sounds, soft Extremities: normal inspection Current Medications: Current Medications Sig/Nhi Start time Last Medication Dose Route Stop Time Status Admin Acetaminophen 650 MG Q6P PRN 07/22 1545 AC PO Acetaminophen 1,000 MG Q6P PRN 07/22 1545 AC IV Alprazolam 1 MG TID 07/24 2200 AC 07/27 PO 07/31 215 0933 Amoxicillin/ 500 MG DAILY 07/24 1000 AC 07/26 Clavulanate Potassium PO 07/28 2300 1128 Calcium Carbonate 1,250 MG TIDAC 07/24 1700 AC 07/27 PO 1200 Epoetin Evan 8,000 UNIT TuThSa PRN 07/23 1430 AC 07/23 IV 1449 Heparin Sodium 5,000 UNIT Q8 07/22 2200 AC 07/24 (Porcine) SC 220 Hydromorphone HCl 4 MG Q6P PRN 07/24 1600 AC 07/27 PO 1031 Labetalol HCl 200 MG BID 07/23 2199 AC 07/26 PO 2031 Lisinopril 5 MG DAILY 07/23 1257 AC 07/26 PO 1128 Polyethylene Glycol 17 GM DAILY PRN 07/22 1545 AC PO Promethazine HCl 25 MG Q4P PRN 07/25 1345 AC 07/27 IV 08/01 1344 1031 Results Pertinent Lab Results: Laboratory Tests 07/25 07/25 0530 0420 Chemistry Sodium (137 - 145 mmol/L) 136 L Potassium (3.5 - 5.1 mmol/L) 3.6 Chloride (98 - 107 mmol/L) 98 Carbon Dioxide (22 - 30 mmol/L) 20 L Anion Gap (5 - 16) 17 H BUN (7 - 17 mg/dL) 52 H Creatinine (0.5 - 1.0 mg/dL) 7.6 *H Estimated GFR (>60 ml/min) 6 L Glucose (65 - 99 mg/dL) 108 H Calcium (8.4 - 10.2 mg/dL) 8.8 Phosphorus (2.5 - 4.5 mg/dL) 4.5 Magnesium (1.6 - 2.3 mg/dL) 1.9 Total Bilirubin (0.2 - 1.3 mg/dL) 0.8 AST (14 - 36 U/L) 20 ALT (9 - 52 U/L) 25 Albumin (3.5 - 5.0 g/dL) 3.5 TSH (0.270 - 4.200 uIU/mL) 8.470 H Free T4 (0.64 - 1.79 ng/dL) 1.33 Coagulation PT (9.4 - 12.5 SEC) 12.3 INR (0.90 - 1.19) 1.13 Hematology CBC w Diff NO MAN DIFF REQ WBC (4.8 - 10.8 /CUMM) 8.3 RBC (4.20 - 5.40 /CUMM) 3.14 L Hgb (12.0 - 16.0 G/DL) 9.5 L Hct (37 - 47 %) 29.2 L MCV (81.0 - 99.0 FL) 93.1 MCH (27.0 - 31.0 PG) 30.4 MCHC (33.0 - 37.0 G/DL) 32.7 L RDW (11.5 - 14.5 %) 14.8 H Plt Count (130 - 400 /CUMM) 178 MPV (7.4 - 10.4 FL) 9.5 Gran % (42.2 - 75.2 %) 55.3 Lymphocytes % (20.5 - 51.1 %) 31.3 Monocytes % (1.7 - 9.3 %) 6.7 Eosinophils % (0 - 5 %) 6.5 H Basophils % (0.0 - 2.0 %) 0.2 Absolute Granulocytes (1.4 - 6.5 /CUMM) 4.6 Absolute Lymphocytes (1.2 - 3.4 /CUMM) 2.6 Absolute Monocytes (0.10 - 0.60 /CUMM) 0.6 Absolute Eosinophils (0.0 - 0.7 /CUMM) 0.5 Absolute Basophils (0.0 - 0.2 /CUMM) 0
[2017-07-27 14:33] LABS: ABSOLUTE BASOPHIL COUNT 0.1 /CUMM (0.0-0.2); ABSOLUTE EOSINOPHIL COUNT 0.8 /CUMM (0.0-0.7); ABSOLUTE GRANULOCYTE CT 5.7 /CUMM (1.4-6.5); ABSOLUTE LYMPH COUNT 1.5 /CUMM (1.2-3.4); ABSOLUTE MONOCYTE COUNT 0.7 /CUMM (0.10-0.60); BASOPHIL % 1.1 % (0.0-2.0); EOSINOPHIL % 9.2 % (0-5); GRANULOCYTE % 64.2 % (42.2-75.2); HEMATOCRIT 26.5 % (37-47); MEAN CORPUSCULAR VOLUME 93.6 FL (81.0-99.0); MEAN PLATELET VOLUME 8.6 FL (7.4-10.4); PLATELET COUNT 239 /CUMM (130-400); RBC DISTRIBUTION WIDTH 14.9 % (11.5-14.5); RED BLOOD CELL CT 2.83 /CUMM (4.20-5.40); WHITE BLOOD CELL COUNT 8.8 /CUMM (4.8-10.8)
[2017-07-27 16:00] VITALS: BP 134/80
[2017-07-27 20:10] VITALS: BP 86/40; BP 86/440
[2017-07-27 22:00] VITALS: BP 110/52
[2017-07-28] VITALS: BP 98/50
[2017-07-28 08:00] VITALS: BP 96/62
--- NOTE | 2017-07-28 08:31 | PN- Housestaff ---
Luna PERALTA,[facility] 07/28/17 0831: Subjective Follow-up For: Pulmonary edema ESRD HFrEF Subjective: Ms Calabrese was seen and examined this morning. She is resting comfortably in bed. She denies any issues overnight. Was able to tolerate by mouth intake this morning although states that her stomach feels "queasy". Says that this feeling normally responds well to Phenergan. She also endorse some fatigue owing to the fact that she wasn't able to get to bed until 2 AM. She denies any fever, chills, or vomiting. Review of Systems Constitutional: Reports: see HPI. Objective Last 24 Hrs of Vital Signs/I&O Vital Signs Date Time Temp Pulse Resp B/P B/P Pulse O2 O2 Flow FiO2 Mean Ox Delivery Rate 07/29 799 97.7 75 18 96/62 100 Room Air 07/28 0000 98.5 76 20 98/50 98 Room Air 07/28 0000 98 Room Air 07/27 2202 78 92/50 07/27 2200 83 110/52 07/27 2009 98 Room Air 07/27 2009 83 20 86/40 98 Room Air 07/27 1624 75 134/80 07/27 1600 99.1 84 18 134/80 98 Room Air 07/27 1600 98 Room Air 07/27 1600 99.1 84 20 134/80 98 Room Air Intake & Output 07/28 1600 07/28 0800 07/28 0000 Intake Total 135 320 Output Total 75 10 Balance 60 310 Intake, IV 70 Intake, Oral 65 320 Number 1 Bowel Movements Output, Urine 75 10 Physical Exam General Appearance: Alert, Oriented X3, Cooperative Skin: No Rashes, Dialysis catheter in place, clean, dry and intact. Cardiovascular: Regular Rate, Normal S1, Normal S2 Lungs: Normal Air Movement, Decreased Air Movement Abdomen: Normal Bowel Sounds, Soft, No Tenderness Neurological: Normal Gait, Normal Speech, Strength at 5/5 X4 Ext Extremities: No Cyanosis, No Edema Current Medications: Current Medications Sig/Nhi Start time Last Medication Dose Route Stop Time Status Admin Acetaminophen 650 MG Q6P PRN 07/22 1545 AC PO Acetaminophen 1,000 MG Q6P PRN 07/22 1545 AC IV Alprazolam 1 MG TID 07/24 2199 AC 07/27 PO 07/31 Amoxicillin/ 500 MG DAILY 07/24 1000 AC 07/27 Clavulanate Potassium PO 07/28 2300 1624 Calcium Carbonate 1,250 MG TIDAC 07/24 1700 AC 07/28 PO 0825 Diphenhydramine HCl 50 MG ONCE ONE 07/27 2199 CAN PO 07/27 2200 Diphenhydramine HCl 25 MG ONCE ONE 07/270 DC 07/27 PO 07/27 220 220 Epoetin Evan 8,000 UNIT TuThSa PRN 07/23 1430 AC 07/23 IV 1449 Heparin Sodium 5,000 UNIT Q8 07/22 220 AC 07/24 (Porcine) SC 2203 Hydromorphone HCl 4 MG Q6P PRN 07/24 1600 AC 07/28 PO 0825 Labetalol HCl 200 MG BID 07/23 220 AC 07/27 PO 220 Lisinopril 5 MG DAILY 07/23 1257 AC 07/27 PO 1624 Melatonin 3 MG ONCE ONE 07/27 2199 DC 07/27 PO 07/27 2200 220 Polyethylene Glycol 17 GM DAILY PRN 07/22 1545 AC PO Promethazine HCl 25 MG .STK-MED ONE 07/28 0000 DC IM 07/28 0001 Promethazine HCl 25 MG Q4P PRN 07/25 1345 AC 07/28 IV 08/01 1344 0856 Last 24 Hrs of Lab/Adonay Results Last 24 Hrs of Labs/Mics: Laboratory Tests 07/27/17 1302: Anion Gap 18 H, Estimated GFR 4 L, BUN/Creatinine Ratio 6.5 L, Calcium 8.8, CBC w Diff NO MAN DIFF REQ, RBC 2.83 L, MCV 93.6, MCH 30.0, MCHC 32.0 L, RDW 14.9 H, MPV 8.6, Gran % 64.2, Lymphocytes % 17.6 L, Monocytes % 7.9, Eosinophils % 9.2 H, Basophils % 1.1, Absolute Granulocytes 5.7, Absolute Lymphocytes 1.5, Absolute Monocytes 0.7 H, Absolute Eosinophils 0.8, Absolute Basophils 0.1 Assessment/Plan Assessment: 56 year old woman with multiple medical problems significant for ESRD noncompliant with HD and polysubstance dependence seen for evaluation of shortness of breath found to have acute pulmonary edema. Patient was admitted to the ICU for urgent dialysis but was subsequently intubated. Patient remains comfortable without any chest pain or shortness of breath. She remains on dilaudid and phenergan for her pain and nausea. She is to be kept NPO on Saturday evening for a nuclear stress test on Saturday. She is to be evaluated by heating engineer Dr. Jovani Carter on Saturday for consideration of an AICD. Problem List -Acute Pulmonary Edema, resolved -Acute Hypoxic Respiratory failure s/p intubation, resolved -Community Acquired Pneumonia, improving -Hypertension -ESRD on HD -Coronary artery disease -Chronic pain -Traumatic Brain Injury -Benzodiazepine/Opiate dependence -Tobacco abuse -Hypertension Plan -Telemetry hold in the ICU -Telemetry monitoring -NPO Saturday night for nuclear stress test Saturday -S/P Karson Cath exchange -S/P extubation -TRC -Hemodialysis per nephrology -Dilaudid 4 mg PO Q6H PRN -Augmentin 500 mg PO Daily, day 10/26 -Calcium carbonate 1250mg PO TIDAC -Continue Lisinopril 5 mg PO Daily -Continue Labetalol 200 mg PO BID -Hold amlodipine -Continue meds: Alprazolam -Nephrology following for dialysis -Cardiology following for pulmonary edema -Pain control with acetaminophen, dilaudid -Renal dialysis diet with 1200ml fluid restriction and 70g protein -DVT PPx with subcutaneous heparin -FULL CODE Problem List: 1. Acute pulmonary edema 2. Pneumonia Pain Ratin Pain Location: No specific pain endorsed Pain Goal: Remain pain free Pain Plan: Tylenol PRN Tomorrow's Labs & Rationales: GOPAL Martinez MD,Kirill 07/28/17 1127: Attending MD Review Statement Attending Statement Attending Assessment/Plan: Attending MD Statement: examined this patient, discuss w/resident/PA/MARINE FIRER, agreed w/resident/PA/MARINE FIRER Attending Assessment/Plan: Patient reports her headache is better today. She underwent hemodialysis yesterday. Her vital signs are stable and she is currently afebrile. Room air saturation is close to 100% on room air. Chest exam shows decreased air entry at the bases otherwise unremarkable. No new labs were done today. Plans for hemodialysis next Saturday as per nephrology . Patient has agreed to cardiac catheterization early next week. Continue her Tylenol for headache as when necessary Patient can be transferred to telemetry when bed is available
[2017-07-28 16:00] VITALS: BP 136/70
[2017-07-28 23:00] VITALS: BP 136/76
--- NOTE | 2017-07-29 06:58 | PN- Housestaff ---
See Addendum Subjective Follow-up For: NEPTALI on CKD/ESRD requiring dialysis; Ischemic changes in the EKG Complaints: hungry Subjective: I followed up and examined the patient today. She is resting comfortably in bed , does not appear to be in distress, and her only complaint is that she is hungry as she has been kept nothing by mouth since midnight for the nuclear stress test to be done later today. No chest pain, shortness of breath, palpitation reported overnight. Review of Systems Constitutional: Reports: see HPI. Objective Last 24 Hrs of Vital Signs/I&O Vital Signs Date Time Temp Pulse Resp B/P B/P Pulse O2 O2 Flow FiO2 Mean Ox Delivery Rate 07/29 0000 97 Room Air 07/28 2300 98.0 67 20 136/76 97 Room Air 07/28 2155 82 18 136/72 07/28 1600 98.3 72 18 136/70 97 Room Air 07/28 1101 74 102/56 07/28 1101 77 102/56 Intake & Output 07/29 1600 07/29 0800 07/29 0000 Intake Total 420 Output Total 50 Balance 370 Intake, Oral 420 Number 1 Bowel Movements Output, Urine 50 Physical Exam General Appearance: Alert, Oriented X3, Cooperative, No Acute Distress Other Physical Findings: Skin right hand dorsum has healing bruise Skin Temp/Moisture Exam: Warm/Dry HEENT Atraumatic, PERRLA, EOMI Neck Supple, No JVD, No thryomegaly Lymphatic Cervical nl Cardiovascular Regular Rate, Normal S1, Normal S2 Lungs b/l crackles heard - getting better than before, chest has hemodialysis catheter in situ Abdomen Normal Bowel Sounds, Soft, No Tenderness Neurological grossly intact, less anxious today Extremities No Clubbing, No Cyanosis, No Edema Vascular Normal Pulses Current Medications: Current Medications Sig/Nhi Start time Last Medication Dose Route Stop Time Status Admin Acetaminophen 650 MG Q6P PRN 07/22 1545 AC PO Acetaminophen 1,000 MG Q6P PRN 07/22 1545 AC IV Alprazolam 1 MG TID 07/24 2199 AC 07/29 PO 07/31 2158 0822 Amoxicillin/ 500 MG DAILY 07/24 1000 DC 07/28 Clavulanate Potassium PO 07/28 2300 1101 Calcium Carbonate 1,250 MG TIDAC 07/24 1700 AC 07/29 PO 1035 Diphenhydramine HCl 25 MG ONCE ONE 07/28 2014 DC 07/28 PO 07/28 Epoetin Evan 8,000 UNIT TuThSa PRN 07/23 1430 AC 07/23 IV 1449 Heparin Sodium 5,000 UNIT Q8 07/22 2200 AC 07/24 (Porcine) SC 2203 Hydromorphone HCl 4 MG Q6P PRN 07/24 1600 AC 07/29 PO 0814 Labetalol HCl 200 MG BID 07/23 2200 AC 07/28 PO 2155 Lisinopril 5 MG DAILY 07/23 1257 AC 07/28 PO 1101 Melatonin 3 MG ONCE ONE 07/28 2014 DC 07/28 PO 07/28 Polyethylene Glycol 17 GM DAILY PRN 07/22 1545 AC PO Promethazine HCl 25 MG .STK-MED ONE 07/28 2006 DC IM 07/29 2007 Promethazine HCl 25 MG .STK-MED ONE 07/28 1414 DC IM 07/28 1415 Promethazine HCl 25 MG Q4P PRN 07/25 1345 AC 07/28 IV 08/01 1344 2012 Assessment/Plan Assessment: 56 year old woman with multiple medical problems significant for ESRD noncompliant with HD and polysubstance dependence seen for evaluation of shortness of breath found to have acute pulmonary edema. Patient was admitted to the ICU for urgent dialysis but was subsequently intubated and then extubated. She is currently in the ICU as a telemetry floor hold patient for the management of following issues: #Acute pulmonary edema Patient is still requiring additional oxygen, but her pulmonary edema picture has resolved * Continue to monitor her vitals/respiratory status #Acute hypoxic respiratory failure, secondary to community-acquired pneumonia and pulmonary edema Patient's respiratory status is much better now compared to her presentation, status post IV antibiotics, IV steroids, hemodialysis #ESRD on hemodialysis Patient has been reluctant on getting dialysis when needed, and will get next session tomorrow. We will follow nephrology recommendations. #CAD Patient had unstable angina picture, with negative troponins and EKG concerning for ischemic changes according to whizzer operator, see what benefit from catheterization but given her compliance issues, she would be at risk of stent occlusion if she does not comply with medications after any interventions such as stent placement. Thus, she is going for a nuclear stress test later today for risk stratification. #Anemia Patient's H&H today was 8.5/26.5, a drop from 9.5/29.2 yesterday. We'll keep monitoring her H&H closely. Guiac stool. #History of substance abuse Although patient initially had difficulty dealing with pain medications, her regimen currently seems to be adequate to her. Will keep psychiatry and social work services involved to better plan her further care. #Mild protein calorie malnutrition #Diet: Renal dialysis diet #DVT ppx: SQ Heparin #Code status: Full code Problem List: 1. Acute pulmonary edema 2. Pneumonia 3. Malnutrition 4. ESRD 5. CAD (coronary artery disease) 6. Chronic pain 7. Opioid dependence Pain Ratin Pain Location: abd, back Pain Goal: Pain 4 or less Pain Plan: prn and scheduled Tomorrow's Labs & Rationales: CBC to trace Hb BEP
--- NOTE | 2017-07-29 10:15 | PN- Nephrology ---
See Addendum Assessment/Plan Nephrology Assessment: 1. ESRD: no HD need today 2. FL/cardiomyopathy: per card --> OK for cath from renal perespective 3. pneumonia: on po antibiotics Suggestion: HD tomorrow Subjective Subjective: Awake & alert Denies SOB - CP earlier Hungry For stress - ? cath Objective Vital Signs and I&Os Vital Signs Date Time Temp Pulse Resp B/P B/P Pulse O2 O2 Flow FiO2 Mean Ox Delivery Rate 07/29 0000 97 Room Air 07/28 2300 98.0 67 20 136/76 97 Room Air 07/28 2155 82 18 136/72 07/28 1600 98.3 72 18 136/70 97 Room Air 07/28 1101 74 102/56 07/28 1101 77 102/56 Intake & Output 07/29 1600 07/29 0400 07/28 1600 07/28 0400 07/27 1600 07/27 0400 Intake Total 420 385 320 730 315 Output Total 50 75 10 100 Balance 370 310 310 730 215 Intake, IV 140 70 75 Intake, Oral 420 245 320 660 240 Number 1 1 1 1 0 Bowel Movements Output, Urine 50 75 10 100 Patient 93 lb 7 oz 92 lb 4 oz Weight Weight Bed scale Bed scale Measurement Method Physical Exam General Appearance: well developed/nourished, no apparent distress, alert Head: atraumatic, normal appearance Ears, Nose, Throat: normal ENT inspection Neck: R IJ HD cath Respiratory: normal breath sounds, no respiratory distress, quiet respiration, lungs clear Cardiovascular: regular rate/rhythm, friction rub (none) Abdomen: soft, non-tender, no organomegaly Extremities: no edema Neurologic/Psychiatric: awake, alert, oriented x 3 Skin: intact, normal color, warm/dry Lymphatic: no anterior cervical brad Current Medications: Current Medications Sig/Nhi Start time Last Medication Dose Route Stop Time Status Admin Acetaminophen 650 MG Q6P PRN 07/22 1545 AC PO Acetaminophen 1,000 MG Q6P PRN 07/22 1545 AC IV Alprazolam 1 MG TID 07/24 2199 AC 07/29 PO 07/31 215 0822 Amoxicillin/ 500 MG DAILY 07/24 1000 DC 07/28 Clavulanate Potassium PO 07/28 2300 1101 Calcium Carbonate 1,250 MG TIDAC 07/24 1700 AC 07/28 PO 1648 Diphenhydramine HCl 25 MG ONCE ONE 07/28 2014 DC 07/28 PO 07/28 Epoetin Evan 8,000 UNIT TuThSa PRN 07/23 1430 AC 07/23 IV 1449 Heparin Sodium 5,000 UNIT Q8 07/22 220 AC 07/24 (Porcine) SC 220 Hydromorphone HCl 4 MG Q6P PRN 07/24 1600 AC 07/29 PO 0814 Labetalol HCl 200 MG BID 07/23 2199 AC 07/28 PO 2155 Lisinopril 5 MG DAILY 07/23 1257 AC 07/28 PO 1101 Melatonin 3 MG ONCE ONE 07/28 2014 DC 07/28 PO 07/28 Polyethylene Glycol 17 GM DAILY PRN 07/22 1545 AC PO Promethazine HCl 25 MG .STK-MED ONE 07/28 2006 DC IM 07/29 2007 Promethazine HCl 25 MG .STK-MED ONE 07/28 1414 DC IM 07/28 1415 Promethazine HCl 25 MG Q4P PRN 07/25 1345 AC 07/28 IV 08/01 1344 2012 Results Pertinent Lab Results: Laboratory Tests 07/27 07/27 1302 0500 Chemistry Sodium (137 - 145 mmol/L) 137 Cancelled Potassium (3.5 - 5.1 mmol/L) 3.9 Cancelled Chloride (98 - 107 mmol/L) 96 L Cancelled Carbon Dioxide (22 - 30 mmol/L) 24 Cancelled Anion Gap (5 - 16) 18 H Cancelled BUN (7 - 17 mg/dL) 70 H Cancelled Creatinine (0.5 - 1.0 mg/dL) 10.8 *H Cancelled Estimated GFR (>60 ml/min) 4 L BUN/Creatinine Ratio (7 - 25 %) 6.5 L Glucose Cancelled Calcium (8.4 - 10.2 mg/dL) 8.8 Cancelled Phosphorus Cancelled Magnesium Cancelled Total Bilirubin Cancelled AST Cancelled ALT Cancelled Albumin Cancelled Hematology CBC w Diff NO MAN DIFF REQ Cancelled WBC (4.8 - 10.8 /CUMM) 8.8 Cancelled RBC (4.20 - 5.40 /CUMM) 2.83 L Cancelled Hgb (12.0 - 16.0 G/DL) 8.5 L Cancelled Hct (37 - 47 %) 26.5 L Cancelled MCV (81.0 - 99.0 FL) 93.6 Cancelled MCH (27.0 - 31.0 PG) 30.0 Cancelled MCHC (33.0 - 37.0 G/DL) 32.0 L Cancelled RDW (11.5 - 14.5 %) 14.9 H Cancelled Plt Count (130 - 400 /CUMM) 239 Cancelled MPV (7.4 - 10.4 FL) 8.6 Cancelled Gran % (42.2 - 75.2 %) 64.2 Lymphocytes % (20.5 - 51.1 %) 17.6 L Monocytes % (1.7 - 9.3 %) 7.9 Eosinophils % (0 - 5 %) 9.2 H Basophils % (0.0 - 2.0 %) 1.1 Absolute Granulocytes (1.4 - 6.5 /CUMM) 5.7 Absolute Lymphocytes (1.2 - 3.4 /CUMM) 1.5 Absolute Monocytes (0.10 - 0.60 /CUMM) 0.7 H Absolute Eosinophils (0.0 - 0.7 /CUMM) 0.8 Absolute Basophils (0.0 - 0.2 /CUMM) 0.1 Imaging/Other Studies: ECHO: 1. Severely decreased EF of 25-30 % with impaired LV relaxation with severe anteroseptal hypokinesis. 2. Mild mitral regurgitation. 3. Trace tricuspid regurgitation. 4. Mild aortic regurgitation. 5.Trace pulmonic regurgitation.
[2017-07-29 11:30] VITALS: BP 140/70
--- NOTE | 2017-07-29 13:04 | PN- Cardiology ---
Subjective Subjective: * No complaints. * sinus rhythm * H/H is trending down Objective Vital Signs and I&Os Vital Signs Date Time Temp Pulse Resp B/P B/P Pulse O2 O2 Flow FiO2 Mean Ox Delivery Rate 07/29 1130 98.5 62 18 140/70 99 Room Air 07/29 0000 97 Room Air 07/28 2300 98.0 67 20 136/76 97 Room Air 07/28 2155 82 18 136/72 07/28 1600 98.3 72 18 136/70 97 Room Air Intake & Output 07/29 1600 07/29 0800 07/29 0000 07/28 1600 07/28 0000 Intake Total 420 250 135 320 Output Total 50 75 10 Balance 370 250 60 310 Intake, IV 70 70 Intake, Oral 420 180 65 320 Number 1 1 1 Bowel Movements Output, Urine 50 75 10 Patient 93 lb 7 oz Weight Weight Bed scale Measurement Method Physical Exam: General: WD/WN female; intubated, awake and responsive. Heart: RRR with 2/6 systolic murmur at the LLSB Lungs: clear anteriorly Extremties: no edema Assessment/Plan Assessment/Plan * This patient had pulmonary edema that was likely due to her failure to be compliant with dialysis. In this setting she also has an increased potassium level. Her potassium and creatinine are improving with dialysis. No current symptoms of decompensated CHF. * This patient did have some ischemic ST-T changes in the setting of respiratory distress and decreased oxygen saturation. In consideration of her severely decreased EF with anterior regional wall motion abnormality and risk factors I suspect that she has ischemic coronary artery disease. A cardiac catheterization is indicated but the patient continues to exhibit a non-compliance with medical recommendations and advice. There is no benefit to a cardiac catheterization if PCI is not pursued if needed. I am very reluctant to pursue PCI in a patient that has shown non-compliance with medications and office visits since acute closure of a stent could result in a life threatening MA which would be a poor tradeoff to treat her angina. We will therefore opt to risk stratify her with a treadmill nuclear stress test and reassess a cardiac catheterization if there is evidence of a large or life-threatening region of ischemia. 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 This patient may receive benefit from an ICD but due to her comorbidities and compliance issues including her unwillingness to participate in dialysis which is another life threatening issue I think we should obtain the opinion of an compliance consultant regarding this issue. The situation has been discussed with Dr. Carter and he feels that we should hold off on an ICD for now but the patient will be evaluated by him today. Obtain a stress test on Saturday. * This patient had severe hypertension upon initial presentation that was likely related to both fluid overload and increased stress hormones and perhaps cocaine. In addition to dialysis, continue labatolol 200mg BID which also has alpha blocking effects and continue Lisinopril at 5mg daily. Continue telemetry? Yes
[2017-07-29 16:00] VITALS: BP 154/80
--- NOTE | 2017-07-29 18:23 | IV DIPYRIDAMOLE NUCLEAR STRESS ---
Clinical Diagnosis: Congestive Heart Failure Associate Engineer: Maria Smith IV DIPYRIDAMOLE INFUSED: 25 mg IV AMINOPHYLLINE INFUSED: 125 mg PATIENT WEIGHT: 93 lbs INTERPRETATION: The patient's baseline EKG showed normal sinus rhythm with left ventricular hypertrophy at 75 BPM. Baseline B/P 120/80. The patient received 25 mg of dipyridamole infused intravenously over a 4 minute period. TC99M Myoview was injected after dipyridamole infusion. The patient tolerated the infusion well. There were no EKG changes seen following pharmacologic infusion. Arrhythmias: None IMPRESSION: The test was supervised by the interpreting Winemaker, who was in attendance during the entire test. No EKG evidence of stress induced myocardial ischemia. See separately dictated Nuclear Report.
--- NOTE | 2017-07-29 18:43 | NUCLEAR MEDICINE REPORT ---
PERSANTINE STRESS AND RESTING SPECT MYOCARDIAL PERFUSION IMAGING STUDY WITH GATED SPECT IMAGES: CLINICAL INDICATION: CHF. PROCEDURE: Regional myocardial perfusion was assessed using a 1 day protocol. Stress images were obtained on 07/29/2017 following the intravenous administration of 12.0 mCi Tc 99m Myoview. Stress consisted of 25 mg Persantine given intravenously. Following the sestamibi injection, no aminophylline was given intravenously. Rest images were obtained 07/29/2017 following the intravenous administration of 18.3 mCi Technetium 99m Myoview. Single photon emission tomographic (SPECT) images were obtained. SPECT images were acquired in a 64 x 64 matrix of 64 projections over 180 degrees. These were reconstructed into standard short axis, horizontal and vertical long axis cardiac projections. FINDINGS: The post stress images show the left ventricular chamber to be mildly dilated. There is mildly to moderately decreased activity in the inferior wall that may be due to attenuation by the adjacent diaphragm. The activity is otherwise homogeneous. The rest images were improperly reconstructed with the reconstructed transverse images flipped in the plane of the images, causing the right side and the left sides to be reversed. This results in the reconstructed cardiac images improperly displayed which is most evident by the right ventricular chamber visualizing on the left side of the patient, the opposite of the properly reconstructed stress images. The images are nonetheless interpretable and are not significantly changed from the post stress images, again showing mildly to moderately decreased activity in the inferior wall, but otherwise homogeneous normal activity. The stress images were obtained using a gated SPECT technique, which permits visualization of wall motion and calculation of the left ventricular ejection fraction. The left ventricular chamber is mildly dilated. There is a mild diffuse left ventricular hypokinesis without a focal component. The calculated left ventricular ejection fraction is 35% on the stress study. No previous study is available for comparison. IMPRESSION: Decreased activity in the inferior wall is present on the stress and rest images, and may be due to attenuation by the adjacent diaphragm, but a fixed perfusion abnormality in the inferior wall cannot be entirely ruled out. No other perfusion abnormalities are noted. There is diffuse left ventricular hypokinesis which is also mildly dilated and a moderately depressed left ventricular ejection fraction. The rest images were improperly reconstructed, as discussed above.
--- NOTE | 2017-07-29 20:18 | Cons- Cardiology ---
General Information and HPI Consulting Request Date of Consult: 07/29/17 Requested By: Reji PERALTA,MD Fish Okeefe Reason for Consult: I was asked to see this patient with left ventricular dysfunction regarding a prophylactic AICD. She is referred by Fish Vargas MD. Source of Information: patient, old records Exam Limitations: very lethargic History of Present Illness: To review this patient is a 56-year-old female with end-stage renal disease. She also has a history of chronic pain, polysubstance abuse, opioid and benzodiazepine addiction. Because of her end-stage renal disease is not totally clear to me. She does have a history of hypertension and chronic pain. She has been on dialysis for quite some time and has had multiple failed fistulas and notes that over the past year and a half she has had an indwelling dialysis catheter. She typically is dialyzed in [place]. Importantly she has a very tough social situation and is in fact now homeless living out of her car. She has minimal social support. She has been noncompliant. She apparently last went to dialysis on 07/08/2017 several weeks ago in [place]. Apparently she elected not to continue on dialysis. There is also likely significant medical noncompliance. She was admitted through the ER on 08-07 with increasing shortness of breath and sputum production. She was found to have both a pneumonia and pulmonary edema and ultimately required intubation. She developed significant severe hypertension and ST-T wave abnormalities. She was also hyperkalemic. She underwent dialysis and a new catheter. She also had a significant elevation in her white count. Ultimately she was able to be extubated. Initially she refused dialysis but that has agreed to resume dialysis. She had an echocardiogram showing an EF of 25-30% with impaired LV relaxation and severe anteroseptal hypokinesis. Of note that echocardiogram done in 2015 showed an EF of 60%. Next She also underwent a Persantine SPECT nuclear study on 08/08/2017 showing possible diaphragmatic attenuation inferior wall and an EF of 35%. She was considered for cardiac catheterization by Dr. Vargas. However he is also concerned regarding compliance of antiplatelet agents should she need a stent. She did have marked ST-T wave abnormalities on her EKGs initially. She has not had to my knowledge any significant ventricular arrhythmias. Allergies/Medications Allergies: Coded Allergies: propofol (Severe, SHORTNESS OF BREATH 12/02/15) Iodinated Contrast- Oral and IV Dye (IODINATED CONTRAST MEDIA - IV DYE) (UNKNOWN PER PT DOESNT REMEMBER 07/13/15) NSAIDS (Non-Steroidal Anti-Inflamma (PER MD NO NSAIDS 07/13/15) aspirin (PER PT MD SAID NO ASA - KIDNEYS 07/13/15) codeine (ANAPHYLAXIS 07/13/15) cortisone (UNKNOWN NOT ALLOWED PER MD KIDNEY 07/13/15) erythromycin base (DECREASED RENAL FUNCTIONS 07/13/15) hydrocodone (From VICODIN) (PER PT MD STATES NO APAP 07/13/15) morphine (SEVERE MIGRAINES AND GI UPSET 07/13/15) ondansetron (UNKNOWN PT DOESNT REMEMBER 07/13/15) metoclopramide (Intermediate, WEAKNESS 07/13/15) Sulfa (Sulfonamide Antibiotics) (VOMITING 07/13/15) ciprofloxacin (From CIPRO) (DIZZY 07/13/15) methadone (VOMITING 07/13/15) Uncoded Allergies: SALMON OIL (UNKNOWN REACTION TO SALMON 07/13/15) Home Med List: Alprazolam 1 MG TABLET 1 TAB PO 5 TIMES A DAY ANXIETY (Reported) Amlodipine Besylate 10 MG TABLET 1 TAB PO DAILY HEART (Reported) Augmentin (Augmentin 500-125 Tablet) 500 MG-125 MG TABLET 1 TAB PO DAILY PNEUMONIA START THIS MED ON 07/25/17 TAKE ONE TAB BY MOUTH DAILY Calcium Carbonate 500 MG CALCIUM (1,250 MG) TABLET 1,250 MG PO TIDAC ESRD Labetalol HCl 200 MG TABLET 200 MG PO BID HYPERTENSION Lisinopril 5 MG TABLET 5 MG PO DAILY HEART FAILURE Current Medications: Current Medications Sig/Nhi Start time Last Medication Dose Route Stop Time Status Admin Acetaminophen 650 MG Q6P PRN 07/22 1545 AC PO Acetaminophen 1,000 MG Q6P PRN 07/22 1545 AC IV Alprazolam 1 MG TID 07/24 2200 AC 07/29 PO 07/31 2158 153 Amoxicillin/ 500 MG DAILY 07/24 1000 DC 07/28 Clavulanate Potassium PO 07/28 2299 1101 Calcium Carbonate 1,250 MG TIDAC 07/24 1700 AC 07/29 PO 1456 Diphenhydramine HCl 25 MG ONCE ONE 07/28 2014 DC 07/28 PO 07/28 Dipyridamole 25 MG ONE ONE 07/29 1315 DC 07/29 Dextrose/Water 35 ML IV 07/29 1316 1456 Epoetin Evan 8,000 UNIT TuThSa PRN 07/23 1430 AC 07/23 IV 1449 Heparin Sodium 5,000 UNIT Q8 07/22 2200 AC 07/24 (Porcine) SC 220 Hydromorphone HCl 4 MG Q6P PRN 07/24 1600 AC 07/29 PO 1455 Labetalol HCl 200 MG BID 07/23 220 AC 07/29 PO 1456 Lisinopril 5 MG DAILY 07/23 1257 AC 07/29 PO 1456 Melatonin 3 MG ONCE ONE 07/28 2014 DC 07/28 PO 07/28 Polyethylene Glycol 17 GM DAILY PRN 07/22 1545 AC PO Prochlorperazine 5 MG ONCE ONE 07/29 191 DC 07/29 IV 07/29 1916 1919 Promethazine HCl 25 MG ONCE ONE 07/29 1615 DC 07/29 IV 07/29 1616 1643 Promethazine HCl 25 MG .STK-MED ONE 07/28 2007 DC IM 07/28 2008 Promethazine HCl 25 MG Q4P PRN 07/25 1345 AC 07/29 IV 08/01 1344 1539 Review of Systems Review of Systems: Constitutional: Positive for decreased appetite, weakness, malaise/fatigue, weight loss, nausea HENT: Positive for congestion, negative for hearing loss, hoarse voice, nosebleeds, sore throat, tinnitus Eyes: Negative for blurred vision, double vision, photophobia, redness, visual disturbances Cardiovascular: Positive for chest pain, positive for shortness of breath, dyspnea on exertion, negative for irregular heartbeat/palpitations, swelling, near syncope, syncope, positive for orthopnea, paroxysmal nocturnal dyspnea, negative for claudication, cyanosis Respiratory: Positive for cough, hemoptysis, shortness of breath, negative for snoring, sleep apnea/sleep disordered breathing, positive for sputum production, wheezing Endocrine: Negative for cold intolerance, heat intolerance Hematologic/Lymphatic: Negative for adenopathy, abnormal bleeding, easy bruisability Skin: Negative for flushing, itching, rashes, skin cancer/suspicious lesions Musculoskeletal: Negative for arthritis, back pain, joint swelling, muscle cramps, muscle weakness Gastrointestinal: Positive for abdominal pain, change in bowel habits, nausea, vomiting Genitourinary: Negative for urinary incontinence, dysuria, flank pain, frequency , hematuria, nocturia, urgency Neurological: Negative for excessive daytime sleepiness, dizziness, focal weakness, headaches, lightheadedness, numbness, paresthesias, seizures, tremors, vertigo Psychiatric/behavioral: Negative for hallucinations Allergic/Immunologic: Negative for environmental allergies ALL OTHER SYSTEMS REVIEWED AND ARE NEGATIVE Past History Travel History Traveled to [place] past 21 day No Medical History Neurological: TBI EENT: NONE Cardiovascular: hypertension, myocardial infarction Respiratory: NONE Gastrointestinal: GERD, pancreatitis Hepatic: NONE Renal: chronic kidney disease, B/L vesiculoureteral reflux Musculoskeletal: chronic back pain, osteoarthritis, psoriasis Psychiatric: anxiety, depression, PTSD ADHD, by report Endocrine: NONE Blood Disorders: NONE Cancer(s): NONE 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 Other (her car) Services at Home: None Primary Language: Syrian Smoking Status: Current Everyday Smoker ETOH Use: occasional use Illicit Drug Use: vapor, ?containing THC Functional Ability ADLs Independent: dressing, eating, toileting, bathing. Ambulation: independent IADLs Independent: shopping, housework, finances, food prep, telephone, transportation , medication admin. Exam & Diagnostic Data Vital Signs and I&O Vital Signs Date Time Temp Pulse Resp B/P B/P Pulse O2 O2 Flow FiO2 Mean Ox Delivery Rate 07/29 1600 98 Room Air 07/29 1600 98.7 75 18 154/80 98 Room Air 07/29 1456 74 154/80 07/29 1130 98.5 62 18 140/70 99 Room Air 07/29 0000 97 Room Air 07/28 2300 98.0 67 20 136/76 97 Room Air 07/28 2155 82 18 136/72 Intake & Output 07/29 1600 07/29 0807/29 0000 07/28 1600 07/28 0000 Intake Total 420 250 135 320 Output Total 50 75 10 Balance 370 250 60 310 Intake, IV 70 70 Intake, Oral 420 180 65 320 Number 1 1 1 Bowel Movements Output, Urine 50 75 10 Patient 93 lb 7 oz Weight Weight Bed scale Measurement Method Physical Exam: General/Constitutional: Oriented to person, place, and time. In no distress. Very somnolent due to compazine, appears cachectic and malnourished Vital signs: see above. Head: Normocephalic/atraumatic Eyes: No xanthelasma or scleral icterus. Conjunctivae normal. Mouth: Moist mucous membranes without pallor or cyanosis Neck: Supple. No jugular venous distention, carotid bruits, thyromegaly Thorax/lungs/pulmonary: No chest deformity. Effort normal without respiratory distress. Lungs clear without wheezes or rales. Heart/Cardiovascular: Normal S1, S2 without murmurs, S3, or S4 Abdomen/GI: No distention, tenderness or masses Extremities: No cyanosis, clubbing, or edema Neuro: Alert and oriented to person, place, time. Grossly non-focal. Skin: Warm and dry. No diaphoresis. No major rashes. No erythema. No pallor or cyanosis. Psychiatric: Very somnolent and drowsy but appropriate and responds appropriately Diagnostic Data EKG Results NSR, marked LAE and LVH, diffuse STT abnormalities Assessment/Plan Assessment/Plan My assessment is that I do not believe Ms. Calabrese is a candidate for prophylactic defibrillator for several reasons. Firstly her EF at the upper range of where we consider defibrillator implantation i.e. it is roughly 35% based on her stress test. One cannot really state that she has had congestive heart failure given the fact that she has not been dialyzed. In addition she has really not been on appropriate trial of medical therapy. It is very likely that she has been noncompliant with medications. Thus with aggressive medical therapy I suspect her EF would be higher. In fact I would consider using carvedilol instead of labetalol with better evidence for reduction in mortality and improvement of ejection fraction. X Next I would note that she has displayed absolutely [address] of significant ventricular arrhythmias. Most importantly I do not think her overall prognosis is good enough to recommend a prophylactic defibrillator. I suspect a two-year mortality is probably at least 50% based on her malnutrition, lack of access, noncompliance, drug use, etc. etc. I would note that we also need these patients to be compliant with follow-up and remote monitoring. She has displayed significant noncompliance in the past. Next para in addition she has an indwelling dialysis catheter. The rate of infection of a transvenous device would be astronomical in this setting. We could consider a subcutaneous device but she is cachectic and this would pose major surgical risk including wound healing issues, pain, and again infection. I would note that there is actually a controversy in patients on dialysis even with compliant patients with minimal other medical problems and good social support that defibrillators might not necessarily improve mortality in this group. I would note that roughly 8 prophylactic defibrillators need to be implanted to save one life in a otherwise healthy population and again in this setting I do not think we should consider it. For this multitude of reasons again I do not think she is a reasonable candidate for a prophylactic AICD. I discussed this with the patient and she does agree that there are too many other issues currently to consider this aggressive therapy. Copies To: Reji PERALTA,Damon; Emma PERALTA,Jovani Arredondo; Sam PERALTA PHD,Fish Art Consult Acknowledgment - Thank you for your consult request.
[2017-07-30] VITALS: BP 150/70
--- NOTE | 2017-07-30 07:08 | PN- Housestaff ---
Leonel PERALTA,George 07/30/17 0708: Subjective Follow-up For: Patient in ICU as telemetric old, with petechiae on ESRD, ischemic changes in the EKG. Complaints: nausea Tele-Events Since Last Visit: sinus rhythm, rate controlled Subjective: I followed up and examined the patient today. She has been nauseous since yesterday evening, but not vomited yet, appears in [id number] distress, but there is no confusion, disorientation or any new symptoms. Her nausea was not better with promethazine and was better only with 5 mg of Compazine IV. She is due for dialysis today. She underwent nuclear stress test yesterday, was seen by lumber grader Dr Carter and discussed about AICD. Review of Systems Constitutional: Reports: see HPI. Gastrointestinal: Reports: nausea. Denies: vomiting. Objective Last 24 Hrs of Vital Signs/I&O Vital Signs Date Time Temp Pulse Resp B/P B/P Pulse O2 O2 Flow FiO2 Mean Ox Delivery Rate 07/30 0000 96 Room Air 07/30 0000 97.8 79 20 150/70 96 Room Air 07/29 2153 76 18 136/82 07/29 1600 98 Room Air 07/29 1600 98.7 75 18 154/80 98 Room Air 07/29 1456 74 154/80 07/29 1130 98.5 62 18 140/70 99 Room Air Intake & Output 07/30 0800 07/30 0000 07/29 1600 Intake Total 100 360 Output Total 25 Balance 100 335 Intake, IV 0 Intake, Oral 100 360 Number 2 Bowel Movements Output, Urine 25 Physical Exam General Appearance: Alert, Oriented X3, Cooperative, Mild Distress, thin Other Physical Findings: Skin Temp/Moisture Exam: Warm/Dry HEENT Atraumatic, PERRLA, EOMI Neck Supple, No JVD, No thryomegaly Lymphatic Cervical nl Cardiovascular Regular Rate, Normal S1, Normal S2 Lungs b/l crackles heard, chest has hemodialysis catheter in situ Abdomen Normal Bowel Sounds, Soft, No Tenderness Neurological grossly intact, less anxious today Extremities No Clubbing, No Cyanosis, No Edema Vascular Normal Pulses Current Medications: Current Medications Sig/Nhi Start time Last Medication Dose Route Stop Time Status Admin Acetaminophen 650 MG Q6P PRN 07/22 1545 AC PO Acetaminophen 1,000 MG Q6P PRN 07/22 1545 AC IV Alprazolam 1 MG TID 07/24 2200 AC 07/29 PO 07/31 2159 2153 Calcium Carbonate 1,250 MG TIDAC 07/24 1700 AC 07/29 PO 1456 Dipyridamole 25 MG ONE ONE 07/29 1315 DC 07/29 Dextrose/Water 35 ML IV 07/29 1316 1456 Epoetin Evan 8,000 UNIT TuThSa PRN 07/23 1430 AC 07/23 IV 1449 Heparin Sodium 5,000 UNIT Q8 07/22 2200 AC 07/24 (Porcine) SC 2203 Hydromorphone HCl 4 MG Q6P PRN 07/24 1600 AC 07/30 PO 0314 Labetalol HCl 200 MG BID 07/23 2200 AC 07/29 PO 2153 Lisinopril 5 MG DAILY 07/23 1257 AC 07/29 PO 1456 Polyethylene Glycol 17 GM DAILY PRN 07/22 1545 AC PO Prochlorperazine 5 MG ONCE ONE 07/29 1915 DC 07/29 IV 07/29 191 1919 Promethazine HCl 25 MG ONCE ONE 07/29 1615 DC 07/29 IV 07/29 1616 1643 Promethazine HCl 25 MG Q4P PRN 07/25 1345 AC 07/30 IV 08/01 1344 0619 Assessment/Plan Assessment: 56 year old woman with multiple medical problems significant for ESRD noncompliant with HD and polysubstance dependence seen for evaluation of shortness of breath found to have acute pulmonary edema. Patient was admitted to the ICU for urgent dialysis but was subsequently intubated and then extubated. She is currently in the ICU as a telemetry floor hold patient for the management of following issues: #Acute pulmonary edema Patient is still requiring additional oxygen, but her pulmonary edema picture has resolved * Continue to monitor her vitals/respiratory status #Acute hypoxic respiratory failure, secondary to community-acquired pneumonia and pulmonary edema, requiring intubation, now extubated Patient's respiratory status is much better now compared to her presentation, status post IV antibiotics, IV steroids, hemodialysis #ESRD on hemodialysis, Uremic today (nausea) Patient is uremic (nausea) clinically today, probably due to delayed dialysis. She is getting dialysis today and hopefully it will get better. In the past, patient has been reluctant on getting dialysis as suggested. We will follow nephrology recommendations. 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 #CAD Patient had unstable angina-like picture, with negative troponins and EKG concerning for ischemic changes. She underwent nuclear stress test later yesterday which was significant for ischemia, and further plan to catheterize will be based on cardiology. She also was seen by lumber grader Dr Carter who for many pertinent reasons recommended that she would be a poor candidate for AICD placemenet and that the patient herself did not want it either. #Anemia Patient's H&H was 8.5/26.5 on 07/27/17. We'll keep monitoring her hemodynamic status closely. Guiac stool. #History of substance abuse Although patient initially had difficulty dealing with pain medications, her regimen currently seems to be adequate to her. Will keep psychiatry and social work services involved to better plan her further care. #Mild protein calorie malnutrition #Diet: Renal dialysis diet #DVT ppx: SQ Heparin #Code status: Full code Problem List: 1. Acute pulmonary edema 2. Pneumonia 3. CAD (coronary artery disease) 4. Chronic pain 5. ESRD 6. Mild protein-calorie malnutrition Pain Ratin Pain Location: back, all over Pain Goal: Pain 4 or less Pain Plan: opiates Tomorrow's Labs & Rationales: per nephrology for now Damon Mendoza MD 07/30/17 1733: Attending MD Review Statement Attending Statement Attending MD Statement: examined this patient, discuss w/resident/PA/SYSTEMS SPEC, agreed w/resident/PA/SYSTEMS SPEC, reviewed EMR data (avail), amended to note Attending Assessment/Plan: The patient was seen and discussed with resident. Appreciate Nephrology follow- up. Some nausea this morning may be related to uremia. The patient also had nausea secondary to dipyridamole administered yesterday for pharmacologic stress test. No ischemia seen on myocardial perfusion scan. Await cardiology input.
[2017-07-30 08:00] VITALS: BP 150/80
--- NOTE | 2017-07-30 09:59 | PN- Nephrology ---
See Addendum Assessment/Plan Nephrology Assessment: 1. ESRD: HD later today 2. CT/cardiomyopathy: await card f/u re ? cath 3. pneumonia: completed antibiotics Suggestion: 1. HD as above 2. would d/c narcotics 3. recheck labs w HD Subjective Subjective: Vomiting w/o CP or SOB Objective Vital Signs and I&Os Vital Signs Date Time Temp Pulse Resp B/P B/P Pulse O2 O2 Flow FiO2 Mean Ox Delivery Rate 07/30 08 97.9 78 18 150/80 97 Room Air 07/30 0000 96 Room Air 07/30 0000 97.8 79 20 150/70 96 Room Air 07/29 2153 76 18 136/82 07/29 1600 98 Room Air 07/29 1600 98.7 75 18 154/80 98 Room Air 07/29 1456 74 154/80 07/29 1130 98.5 62 18 140/70 99 Room Air Intake & Output 07/30 1600 07/30 0400 07/29 1600 07/29 0400 07/28 1600 07/28 0400 Intake Total 100 360 420 385 320 Output Total 25 50 75 10 Balance 100 335 370 310 310 Intake, IV 0 140 Intake, Oral 100 360 420 245 320 Number 2 1 1 1 Bowel Movements Output, Urine 25 50 75 10 Patient 93 lb 7 oz Weight Weight Bed scale Measurement Method Physical Exam General Appearance: well developed/nourished, no apparent distress, alert Head: atraumatic, normal appearance Ears, Nose, Throat: normal ENT inspection Neck: normal inspection, supple Respiratory: quiet respiration, lungs clear Cardiovascular: regular rate/rhythm Abdomen: soft, non-tender Extremities: no edema Neurologic/Psychiatric: awake, alert Skin: intact, normal color Current Medications: Current Medications Sig/Nhi Start time Last Medication Dose Route Stop Time Status Admin Acetaminophen 650 MG Q6P PRN 07/22 1545 AC PO Acetaminophen 1,000 MG Q6P PRN 07/22 1545 AC IV Alprazolam 1 MG Q6 07/30 1200 AC PO 08/06 1159 Alprazolam 1 MG TID 07/24 2200 DC 07/29 PO 07/31 215 2153 Calcium Carbonate 1,250 MG TIDAC 07/24 1700 AC 07/29 PO 1456 Dipyridamole 25 MG ONE ONE 07/29 1315 DC 07/29 Dextrose/Water 35 ML IV 07/29 1316 1456 Epoetin Evan 8,000 UNIT TuThSa PRN 07/23 1430 AC 07/23 IV 1449 Heparin Sodium 5,000 UNIT Q8 07/22 220 AC 07/24 (Porcine) SC 2203 Hydromorphone HCl 4 MG Q6P PRN 07/24 1600 AC 07/30 PO 0314 Labetalol HCl 200 MG BID 07/23 220 AC 07/29 PO 2153 Lisinopril 5 MG DAILY 07/23 1257 AC 07/29 PO 1456 Polyethylene Glycol 17 GM DAILY PRN 07/22 1545 AC PO Prochlorperazine 5 MG ONCE ONE 07/30 0815 DC 07/30 IV 07/30 0816 0817 Prochlorperazine 5 MG ONCE ONE 07/29 191 DC 07/29 IV 07/29 191 191 Promethazine HCl 25 MG .STK-MED ONE 07/30 0118 DC IM 07/30 0119 Promethazine HCl 25 MG ONCE ONE 07/29 1615 DC 07/29 IV 07/29 1616 1643 Promethazine HCl 25 MG Q4P PRN 07/25 1345 AC 07/30 IV 08/01 1344 0619 Results Pertinent Lab Results: Laboratory Tests 07/27 1302 Chemistry Sodium (137 - 145 mmol/L) 137 Potassium (3.5 - 5.1 mmol/L) 3.9 Chloride (98 - 107 mmol/L) 96 L Carbon Dioxide (22 - 30 mmol/L) 24 Anion Gap (5 - 16) 18 H BUN (7 - 17 mg/dL) 70 H Creatinine (0.5 - 1.0 mg/dL) 10.8 *H Estimated GFR (>60 ml/min) 4 L BUN/Creatinine Ratio (7 - 25 %) 6.5 L Calcium (8.4 - 10.2 mg/dL) 8.8 Hematology CBC w Diff NO MAN DIFF REQ WBC (4.8 - 10.8 /CUMM) 8.8 RBC (4.20 - 5.40 /CUMM) 2.83 L Hgb (12.0 - 16.0 G/DL) 8.5 L Hct (37 - 47 %) 26.5 L MCV (81.0 - 99.0 FL) 93.6 MCH (27.0 - 31.0 PG) 30.0 MCHC (33.0 - 37.0 G/DL) 32.0 L RDW (11.5 - 14.5 %) 14.9 H Plt Count (130 - 400 /CUMM) 239 MPV (7.4 - 10.4 FL) 8.6 Gran % (42.2 - 75.2 %) 64.2 Lymphocytes % (20.5 - 51.1 %) 17.6 L Monocytes % (1.7 - 9.3 %) 7.9 Eosinophils % (0 - 5 %) 9.2 H Basophils % (0.0 - 2.0 %) 1.1 Absolute Granulocytes (1.4 - 6.5 /CUMM) 5.7 Absolute Lymphocytes (1.2 - 3.4 /CUMM) 1.5 Absolute Monocytes (0.10 - 0.60 /CUMM) 0.7 H Absolute Eosinophils (0.0 - 0.7 /CUMM) 0.8 Absolute Basophils (0.0 - 0.2 /CUMM) 0.1 Imaging/Other Studies: Stress: IMPRESSION: Decreased activity in the inferior wall is present on the stress and rest images, and may be due to attenuation by the adjacent diaphragm, but a fixed perfusion abnormality in the inferior wall cannot be entirely ruled out. No other perfusion abnormalities are noted. There is diffuse left ventricular hypokinesis which is also mildly dilated and a moderately depressed left ventricular ejection fraction. The rest images were improperly reconstructed
[2017-07-30 15:42] LABS: ABSOLUTE BASOPHIL COUNT 0 /CUMM (0.0-0.2); ABSOLUTE EOSINOPHIL COUNT 0 /CUMM (0.0-0.7); ABSOLUTE GRANULOCYTE CT 12.5 /CUMM (1.4-6.5); ABSOLUTE LYMPH COUNT 1.2 /CUMM (1.2-3.4); ABSOLUTE MONOCYTE COUNT 0.6 /CUMM (0.10-0.60); BASOPHIL % 0.3 % (0.0-2.0); EOSINOPHIL % 0.3 % (0-5); HEMATOCRIT 30.6 % (37-47); MEAN CORPUSCULAR HGB 31.1 PG (27.0-31.0); MEAN CORPUSCULAR HGB CONC 33.5 G/DL (33.0-37.0); MEAN CORPUSCULAR VOLUME 92.9 FL (81.0-99.0); MEAN PLATELET VOLUME 8.2 FL (7.4-10.4); PLATELET COUNT 261 /CUMM (130-400); RBC DISTRIBUTION WIDTH 15.2 % (11.5-14.5)
[2017-07-30 15:45] LABS: WHITE BLOOD CELL COUNT 14.4 /CUMM (4.8-10.8)
[2017-07-30 16:00] VITALS: BP 162/80
--- NOTE | 2017-07-30 18:45 | PN- Cardiology ---
Subjective Subjective: * Patient denies any symptoms today except for a discomfort during dialysis while lying on her side that sounded musculoskeletal. * Stress testing was negative for ischemia although a fixed inferior defect verses diaphragmatic attenuation was noted. * increased WBC count Objective Vital Signs and I&Os Vital Signs Date Time Temp Pulse Resp B/P B/P Pulse O2 O2 Flow FiO2 Mean Ox Delivery Rate 07/30 1653 97.5 88 24 162/80 07/30 1600 97.5 88 24 162/80 98 Room Air 07/30 0800 97.9 78 18 150/80 97 Room Air 07/30 0000 96 Room Air 07/30 0000 97.8 79 20 150/70 96 Room Air 07/29 2153 76 18 136/82 Intake & Output 07/30 1600 07/30 0800 07/30 0000 07/29 1600 07/29 0000 Intake Total 120 100 360 420 Output Total 300 25 50 Balance -180 100 335 370 Intake, IV 0 Intake, Oral 120 100 360 420 Number 2 2 1 Bowel Movements Output, Urine 300 25 50 Patient 93 lb 8 oz Weight Weight Bed scale Measurement Method Physical Exam: General: WD/WN female; intubated, awake and responsive. Heart: RRR with 2/6 systolic murmur at the LLSB Lungs: clear anteriorly Extremties: no edema Assessment/Plan Assessment/Plan * This patient had pulmonary edema that was likely due to her failure to be compliant with dialysis. In this setting she also has an increased potassium level. Her potassium and creatinine are improving with dialysis. No current symptoms of decompensated CHF. * This patient did have some ischemic ST-T changes in the setting of respiratory distress and decreased oxygen saturation. In consideration of her severely decreased EF with anterior regional wall motion abnormality and risk factors I suspected ischemic coronary artery disease. Her stress test does not show any ischemia although a fixed inferior defect verses diaphragmatic attenuation was noted. 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 This patient may receive benefit from an ICD but due to her comorbidities and compliance issues she was not felt to be a candidate. * This patient had severe hypertension upon initial presentation that was likely related to both fluid overload and increased stress hormones and perhaps cocaine. In addition to dialysis, continue labatolol 200mg BID which also has alpha blocking effects and continue Lisinopril at 5mg daily. Continue telemetry? No
[2017-07-31] VITALS: BP 142/78
--- NOTE | 2017-07-31 08:31 | PN- Housestaff ---
Alex Garcia 07/31/17 0830: Subjective Follow-up For: End-stage renal disease Ischemic changes on ekg Complaints: no complaints Tele-Events Since Last Visit: Normal sinus rhythm, no overnight telemetry events Subjective: She was comfortable this morning. Did not have any concerns. Vitals remained stable. MAXIMUM TEMPERATURE 98.8 Pulse rate 70-88 Respiratory rate 18-24 Systolic blood pressure 110-162 Diastolic blood pressure 60-80 98% on room air. Review of Systems Constitutional: Reports: see HPI. Objective Last 24 Hrs of Vital Signs/I&O Vital Signs Date Time Temp Pulse Resp B/P B/P Pulse O2 O2 Flow FiO2 Mean Ox Delivery Rate 07/31 0000 98 Room Air 07/31 0000 98.8 75 20 142/78 98 Room Air 07/30 1653 97.5 88 24 162/80 07/30 1600 97.5 88 24 162/80 98 Room Air Intake & Output 07/31 1600 07/31 0800 07/31 0000 Intake Total 170 120 Output Total 100 300 Balance 70 -180 Intake, IV 50 Intake, Oral 120 120 Output, Urine 100 300 Physical Exam General Appearance: No Acute Distress Other Physical Findings: General Exam: AAOx3, No acute distress, Skin: No rashes, no breakdown;HEENT: PERRLA, EOMI;Neck: Supple, No JVD ; No cervical lymphadenopathy;CVS: Reg Rate, Normal S1,S2, 2/6 systolic murmur;Resp: Normal air entry, no ronchi/rales; Abdomen: Soft, No tenderness, Normal Bowel Sounds;Neuro: Normal Speech, Strength 5/5 b/l x 4 extremities, Sensation intact, CN III-XII NL, Reflexes 2+; Extremities: No cyanosis, no pedal edema Current Medications: Current Medications Sig/Nhi Start time Last Medication Dose Route Stop Time Status Admin Acetaminophen 650 MG Q6P PRN 07/22 1545 AC 07/31 PO 0134 Acetaminophen 1,000 MG Q6P PRN 07/22 1545 AC IV Alprazolam 1 MG Q6 07/30 1200 AC 07/31 PO 08/06 1159 0612 Calcium Carbonate 1,250 MG TIDAC 07/24 1700 AC 07/30 PO 1653 Epoetin Evan 8,000 UNIT TuThSa PRN 07/23 1430 AC 07/23 IV 1449 Heparin Sodium 5,000 UNIT Q8 07/22 2199 AC 07/24 (Porcine) SC 2203 Hydromorphone HCl 4 MG Q6P PRN 07/24 1600 AC 07/31 PO 0612 Labetalol HCl 200 MG BID 07/23 220 AC 07/30 PO 2227 Lisinopril 5 MG DAILY 07/23 1257 AC 07/30 PO 1653 Polyethylene Glycol 17 GM DAILY PRN 07/22 1545 AC PO Prochlorperazine 5 MG ONCE ONE 07/30 2144 DC 07/30 IV 07/30 2145 222 Promethazine HCl 25 MG .STK-MED ONE 07/30 1921 DC IM 07/30 192 Promethazine HCl 25 MG Q4P PRN 07/25 1345 AC 07/31 IV 08/01 1344 0144 Last 24 Hrs of Lab/Adonay Results Last 24 Hrs of Labs/Mics: Laboratory Tests 07/30/17 1310: Anion Gap 22 H, Estimated GFR 4 L, Glucose 116 H, Calcium 8.9, Phosphorus 6.6 H, Magnesium 2.0, Total Bilirubin 1.2, AST 21, ALT 35, Albumin 4.3, CBC w Diff NO MAN DIFF REQ, RBC 3.30 L, MCV 92.9, MCH 31.1 H, MCHC 33.5, RDW 15.2 H, MPV 8.2, Gran % 87.0 H, Lymphocytes % 8.0 L, Monocytes % 4.4, Eosinophils % 0.3, Basophils % 0.3, Absolute Granulocytes 12.5 H, Absolute Lymphocytes 1.2, Absolute Monocytes 0.6, Absolute Eosinophils 0, Absolute Basophils 0 Assessment/Plan Assessment: Ms Calabrese is a 56 year old woman with PMHx of ESRD noncompliant with HD sessions and polysubstance dependence was admitted to the ICU for worsening dyspnea who was found to have acute pulmonary edema. She was intubated for airway protection , and was subsequently extubated. In the last 24 hrs: WBC 8.8 --> 14.4 (87% granulocytosis) acute increase in white blood cells. Hemoglobin 10.3, platelets 261. Sodium 137, potassium 4.8, bicarbonate 20, creatinine 10.6. #Acute pulmonary edema Patient is still requiring additional oxygen, but her pulmonary edema picture has resolved -Continue to monitor her vitals/respiratory status #Acute hypoxic respiratory failure, secondary to community-acquired pneumonia and pulmonary edema, requiring intubation, now extubated Patient's respiratory status is much better now compared to her presentation, status post IV antibiotics, IV steroids, hemodialysis. -She is currently off abx. #ESRD on hemodialysis, Uremic today (nausea) Patient is uremic (nausea) clinically today, probably due to delayed dialysis. Dialysis in the am. In the past, patient has been reluctant on getting dialysis as suggested. We will follow nephrology recommendations. 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 #CAD Patient had unstable angina-like picture, with negative troponins and EKG concerning for ischemic changes. She underwent nuclear stress test recently which was significant for ischemia, and further plan to catheterize will be based on cardiology. She also was seen by labor operator Dr Carter who for many pertinent reasons recommended that she would be a poor candidate for AICD placemenet and that the patient herself did not want it either. #Anemia H&H stable for now. We'll keep monitoring her hemodynamic status closely. Guiac stool. #History of substance abuse Although patient initially had difficulty dealing with pain medications, her regimen currently seems to be adequate to her. Will keep psychiatry and social work services involved to better plan her further care. #Mild protein calorie malnutrition #Abdominal discomfort- During the day, she developed abdominal discomfort. -Given her acute change in WBC count, would get an x-ray to rule out any obstruction. -Check lactic acid. #Diet: Renal dialysis diet #DVT ppx: SQ Heparin #Code status: Full code #Disposition: stable to transfer to telemetry Await PT, and Social work consult. Problem List: 1. Abdominal pain 2. CAD (coronary artery disease) 3. Pneumonia Pain Ratin Pain Location: back Pain Goal: Pain 4 or less Pain Plan: tylenol prn opiates Tomorrow's Labs & Rationales: cbc Damon Rowell MD 07/31/171: Attending MD Review Statement Attending Statement Attending MD Statement: examined this patient, discuss w/resident/PA/SHEET METAL WORKER HELPER, agreed w/resident/PA/SHEET METAL WORKER HELPER, reviewed EMR data (avail), discussed with case mgmt, amended to note Attending Assessment/Plan: The patient was seen this morning while still in ICU (transferred to telemetry floor later in day). She denied any chest pain. Had some abdominal discomfort. Nausea improved. She stated that she is having difficulty ambulating and frequent falls. Will need PT assessment. Social service input as patient is living in car. Await reinstatement of insurance.
--- NOTE | 2017-07-31 10:44 | PN- Nephrology ---
Assessment/Plan Nephrology Assessment: 1. ESRD: no HD need today 2. AK/cardiomyopathy: no interventions 3. pneumonia: completed antibiotics Suggestion: HD tomorrow Subjective Subjective: No CP No SOB Vomiting stopped Pt cut HD time yesterday Objective Vital Signs and I&Os Vital Signs Date Time Temp Pulse Resp B/P B/P Pulse O2 O2 Flow FiO2 Mean Ox Delivery Rate 07/31 1038 70 110/60 07/31 0000 98 Room Air 07/31 0000 98.8 75 20 142/78 98 Room Air 07/30 1653 97.5 88 24 162/80 07/30 1600 97.5 88 24 162/80 98 Room Air Intake & Output 07/31 1600 07/31 0400 07/30 1600 07/30 0400 07/29 1600 07/29 0400 Intake Total 170 120 220 360 420 Output Total 100 300 300 25 50 Balance 70 -180 -80 335 370 Intake, IV 50 0 Intake, Oral 120 120 220 360 420 Number 2 2 1 Bowel Movements Output, Urine 100 300 300 25 50 Patient 93 lb 8 oz Weight Weight Bed scale Measurement Method Physical Exam General Appearance: well developed/nourished, no apparent distress, alert Head: atraumatic, normal appearance Ears, Nose, Throat: normal ENT inspection Neck: R IJ cath Respiratory: normal breath sounds, no respiratory distress, lungs clear Cardiovascular: regular rate/rhythm Abdomen: soft, non-tender, no organomegaly Extremities: no edema Neurologic/Psychiatric: no motor/sensory deficits, awake, alert Skin: intact, normal color Lymphatic: no anterior cervical brad Current Medications: Current Medications Sig/Nhi Start time Last Medication Dose Route Stop Time Status Admin Acetaminophen 650 MG .STK-MED ONE 07/31 0131 DC PO 07/31 0132 Acetaminophen 650 MG Q6P PRN 07/22 1545 AC 07/31 PO 0134 Acetaminophen 1,000 MG Q6P PRN 07/22 1545 AC IV Alprazolam 1 MG Q6 07/30 1200 AC 07/31 PO 08/06 1159 0612 Calcium Carbonate 1,250 MG TIDAC 07/24 1700 AC 07/31 PO 0825 Epoetin Evan 8,000 UNIT TuThSa PRN 07/23 1430 AC 07/23 IV 1449 Heparin Sodium 5,000 UNIT Q8 07/22 2200 AC 07/24 (Porcine) SC 220 Hydromorphone HCl 4 MG Q6P PRN 07/24 1600 AC 07/31 PO 0612 Labetalol HCl 200 MG BID 07/23 2200 AC 07/31 PO 1038 Lisinopril 5 MG DAILY 07/23 1257 AC 07/30 PO 1653 Polyethylene Glycol 17 GM DAILY PRN 07/22 1545 AC PO Prochlorperazine 5 MG ONCE ONE 07/30 2145 DC 07/30 IV 07/30 2145 2226 Promethazine HCl 25 MG .STK-MED ONE 07/31 013 DC IM 07/31 013 Promethazine HCl 25 MG .STK-MED ONE 07/30 192 DC IM 07/30 192 Promethazine HCl 25 MG Q4P PRN 07/25 1345 AC 07/31 IV 08/01 1344 1015 Results Pertinent Lab Results: Laboratory Tests 07/30 1310 Chemistry Sodium (137 - 145 mmol/L) 137 Potassium (3.5 - 5.1 mmol/L) 4.8 Chloride (98 - 107 mmol/L) 95 L Carbon Dioxide (22 - 30 mmol/L) 20 L Anion Gap (5 - 16) 22 H BUN (7 - 17 mg/dL) 75 H Creatinine (0.5 - 1.0 mg/dL) 10.6 *H Estimated GFR (>60 ml/min) 4 L Glucose (65 - 99 mg/dL) 116 H Calcium (8.4 - 10.2 mg/dL) 8.9 Phosphorus (2.5 - 4.5 mg/dL) 6.6 H Magnesium (1.6 - 2.3 mg/dL) 2.0 Total Bilirubin (0.2 - 1.3 mg/dL) 1.2 AST (14 - 36 U/L) 21 ALT (9 - 52 U/L) 35 Albumin (3.5 - 5.0 g/dL) 4.3 Hematology CBC w Diff NO MAN DIFF REQ WBC (4.8 - 10.8 /CUMM) 14.4 H RBC (4.20 - 5.40 /CUMM) 3.30 L Hgb (12.0 - 16.0 G/DL) 10.3 L Hct (37 - 47 %) 30.6 L MCV (81.0 - 99.0 FL) 92.9 MCH (27.0 - 31.0 PG) 31.1 H MCHC (33.0 - 37.0 G/DL) 33.5 RDW (11.5 - 14.5 %) 15.2 H Plt Count (130 - 400 /CUMM) 261 MPV (7.4 - 10.4 FL) 8.2 Gran % (42.2 - 75.2 %) 87.0 H Lymphocytes % (20.5 - 51.1 %) 8.0 L Monocytes % (1.7 - 9.3 %) 4.4 Eosinophils % (0 - 5 %) 0.3 Basophils % (0.0 - 2.0 %) 0.3 Absolute Granulocytes (1.4 - 6.5 /CUMM) 12.5 H Absolute Lymphocytes (1.2 - 3.4 /CUMM) 1.2 Absolute Monocytes (0.10 - 0.60 /CUMM) 0.6 Absolute Eosinophils (0.0 - 0.7 /CUMM) 0 Absolute Basophils (0.0 - 0.2 /CUMM) 0
[2017-07-31 14:42] VITALS: BP 112/62
--- NOTE | 2017-07-31 15:11 | RADIOLOGY REPORT ---
EXAMINATION: XR PORTABLE ABDOMEN CLINICAL INFORMATION: Hyperactive bowel sounds. Evaluate for obstruction. COMPARISON: None TECHNIQUE: AP view of the abdomen. FINDINGS: There is an abnormal bowel gas pattern with dilated loops of bowel seen in the left mid abdomen and pelvis. It is uncertain whether this represents small or large bowel. There is no evidence of free air. No calcifications are seen. Bony structures are unremarkable. IMPRESSION: Abnormal bowel gas pattern with dilated bowel in the left mid abdomen and pelvis questionable for obstruction.
--- NOTE | 2017-07-31 16:36 | Event Note ---
Event Note Event Note: Situation Patient with abdominal pain for 3 days on opiates found to have an abnormal gas pattern on abdominal x-ray Background 56 year old woman with multiple medical problems significant for ESRD noncompliant with HD, homlessness, medication non-compliance, and polysubstance abuse admitted for evaluation of shortness of breath found to be in acute pulmonary edema requiring intubation with mechanical ventilation. Assessment Patients abnormal gas pattern most likely represent that of opiate induced constipation. She reports 7/10 mid/left abdominal pain with associated nausea. She has had decreased oral intake over past few days secondary to her baseline nausea, but is still reportedly having bowel movement and passing gas. Patient appears to be in no acute distress with a soft, mildly tender abdomen without guarding or rigidity. Patient was told her dilaudid dosing interval is being increased which will be eventually tapered off. She then stated "then Im leaving if youre not gonna help me". I re-emphasized that these findings may be due to these medications are need to be tapered off. After a long discussion patient decided to stay. Recommendations -Monitor for worsening abdominal pain overnight -Repeat AXR in AM -Decrease dilaudid to 4 mg every 12 hours
[2017-07-31 21:56] VITALS: BP 110/54
[2017-08-01 06:59] VITALS: BP 90/44
--- NOTE | 2017-08-01 07:57 | Discharge Summary ---
Hospital Course Allergies: Coded Allergies: propofol (Severe, SHORTNESS OF BREATH 12/02/15) Iodinated Contrast- Oral and IV Dye (IODINATED CONTRAST MEDIA - IV DYE) (UNKNOWN PER PT DOESNT REMEMBER 07/13/15) NSAIDS (Non-Steroidal Anti-Inflamma (PER MD NO NSAIDS 07/13/15) aspirin (PER PT MD SAID NO ASA - KIDNEYS 07/13/15) codeine (ANAPHYLAXIS 07/13/15) cortisone (UNKNOWN NOT ALLOWED PER MD KIDNEY 07/13/15) erythromycin base (DECREASED RENAL FUNCTIONS 07/13/15) hydrocodone (From VICODIN) (PER PT MD STATES NO APAP 07/13/15) morphine (SEVERE MIGRAINES AND GI UPSET 07/13/15) ondansetron (UNKNOWN PT DOESNT REMEMBER 07/13/15) metoclopramide (Intermediate, WEAKNESS 07/13/15) Sulfa (Sulfonamide Antibiotics) (VOMITING 07/13/15) ciprofloxacin (From CIPRO) (DIZZY 07/13/15) methadone (VOMITING 07/13/15) Uncoded Allergies: SALMON OIL (UNKNOWN REACTION TO SALMON 07/13/15) Discharge Instructions Medications at Discharge Discharge Medications: Stop taking the following medications: Amlodipine Besylate (Amlodipine Besylate) 10 MG TABLET ORAL DAILY Continue taking these medications: Alprazolam (Alprazolam) 1 MG TABLET 1 Tablet ORAL 5 TIMES A DAY Comments: Last Taken: 08/01/17 Time: 2:00 PM Start taking the following new medications: Calcium Carbonate (Calcium Carbonate) 500 MG CALCIUM (1,250 MG) TABLET 1,250 Milligram ORAL 3 TIMES DAILY BEFORE MEALS Qty = 90 No Refills Instructions: TAKE DIRECTED Comments: Last Taken: 08/01/17 Time: 9:00 AM Labetalol HCl (Labetalol HCl) 200 MG TABLET 200 Milligram ORAL TWICE DAILY Qty = 60 No Refills Instructions: TAKE DIRECTED Comments: Last Taken: 07/31/17 Time: 10:00 PM Lisinopril (Lisinopril) 5 MG TABLET 5 Milligram ORAL DAILY Qty = 30 No Refills Instructions: TAKE DIRECTED Comments: Last Taken: 07/30/17 Time: 5:00 PM Attending MD Review Statement Documenting Attending: Yoni PERALTA,Jordi Other Findings: Patient left against medical advice.
--- NOTE | 2017-08-01 07:59 | PN- Housestaff ---
Tobi PERALTA,Timothy 08/01/17 0759: Subjective Follow-up For: intubation pulmonary edema Subjective: Pt wished to leave AMA this morning. Please see event note. We were not able to convince pt to do her session of HD or to get any labs. Review of Systems Constitutional: Denies: chills, fever, weakness. EENTM: Reports: no symptoms. Cardiovascular: Denies: chest pain, palpitations. Respiratory: Denies: cough, short of breath. Gastrointestinal: Denies: abdominal pain, bloating, constipation. Genitourinary: Reports: no symptoms. Musculoskeletal: Reports: no symptoms. Objective Last 24 Hrs of Vital Signs/I&O Vital Signs Date Time Temp Pulse Resp B/P B/P Pulse O2 O2 Flow FiO2 Mean Ox Delivery Rate 08/01 0850 102/50 08/01 0850 102/50 08/01 0844 102/50 08/01 0659 98.4 58 20 90/44 92 Room Air 08/01 2155 99.4 72 20 110/54 97 07/31 2154 77 112/62 Intake & Output 08/01 1600 08/01 0800 08/01 0000 Intake Total 400 110 200 Output Total Balance 400 110 200 Intake, IV 10 Intake, Oral 400 100 200 Patient 43.545 kg Weight Physical Exam General Appearance: Alert, Oriented X3, Cooperative, No Acute Distress Skin: No Significant Lesion HEENT: Atraumatic, PERRLA, EOMI Neck: Supple Cardiovascular: Regular Rate, Normal S1, Normal S2 Lungs: Normal Air Movement Abdomen: Soft, No Tenderness Extremities: No Edema Current Medications: Current Medications Sig/Nhi Start time Last Medication Dose Route Stop Time Status Admin Acetaminophen 650 MG Q6P PRN 07/22 1545 DCD 07/31 PO 0134 Acetaminophen 1,000 MG Q6P PRN 07/22 1545 DCD IV Alprazolam 1 MG Q6 07/30 1200 DCD 08/01 PO 08/06 1159 1348 Calcium Carbonate 1,250 MG TIDAC 07/24 1700 DCD 08/01 PO 0849 Diphenhydramine HCl 25 MG ONCE ONE 08/01 0015 DC 08/01 PO 08/01 0016 0009 Epoetin Evan 8,000 UNIT TuThSa PRN 07/23 1430 DCD 07/23 IV 1449 Heparin Sodium 5,000 UNIT Q8 07/22 2200 DCD 07/31 (Porcine) SC 2154 Hydromorphone HCl 2 MG ONCE ONE 08/01 0145 DC 08/01 PO 08/01 0146 0148 Hydromorphone HCl 4 MG Q12P PRN 07/31 1645 DCD 08/01 PO 0805 Hydromorphone HCl 4 MG Q6P PRN 07/24 1600 DC 07/31 PO 1156 Labetalol HCl 200 MG BID 07/23 2200 DCD 07/31 PO 2154 Lisinopril 5 MG DAILY 07/23 1257 DCD 07/30 PO 1653 Melatonin 3 MG AT BEDTIME 08/01 0045 DCD 08/01 PO 0041 Patient Medication 1 ED ONE ONE 08/01 1015 DC Teaching ED 08/01 1016 Polyethylene Glycol 17 GM DAILY PRN 07/22 1545 DCD PO Promethazine HCl 25 MG .STK-MED ONE 07/31 2218 DC IM 07/31 2219 Promethazine HCl 25 MG .STK-MED ONE 07/31 1755 DC IM 07/31 1756 Promethazine HCl 25 MG Q4P PRN 07/25 1345 DC 07/31 IV 08/01 1344 2230 Last 24 Hrs of Lab/Adonay Results Last 24 Hrs of Labs/Mics: Laboratory Tests 08/01/17 0600: CBC w Diff Cancelled, WBC Cancelled, RBC Cancelled, Hgb Cancelled, Hct Cancelled , MCV Cancelled, MCH Cancelled, MCHC Cancelled, RDW Cancelled, Plt Count Cancelled, MPV Cancelled Assessment/Plan Assessment: Pt left today AMA without any labs or work up after being transferred from ICU yesterday evening. Some of the issues we wanted to address included leukocytosis , abdominal pain with constipation and vomiting, opioid and BZ dependence, recent extubation for pulmonary edema, and ESRD dependent on HD. We did not have a chance to pursue any evaluation on these issues as pt was insistent on leaving to address family concerns and that she felt too well to remain in the hospital. Problem List: 1. DRUG SEEKING BEHAVIOR 2. Nausea and vomiting Pain Ratin Pain Location: none Pain Goal: Remain pain free Pain Plan: none Tomorrow's Labs & Rationales: none Jordi Vallejo 08/01/17 1201: Attending MD Review Statement Attending Statement Attending MD Statement: examined this patient, discuss w/resident/PA/CLINICAL APPEALS AUDITOR, agreed w/resident/PA/CLINICAL APPEALS AUDITOR, discussed with family, reviewed EMR data (avail), discussed with nursing, discussed with case mgmt, reviewed images, amended to note Attending Assessment/Plan: Patient left against medical advice.
--- NOTE | 2017-08-01 08:42 | PN- Nephrology ---
Assessment/Plan Nephrology Assessment: 1. ESRD: advised HD 2. IA/cardiomyopathy: no interventions 3. pneumonia: completed antibiotics 4. ? Bowel Obstruction: Sx improved but prob needs further eval Suggestion: psych reeval re competency GI consult CT abd/pelvis w po contrast Subjective Subjective: No complaints No further vomiting; no BM but flautus Refused HD this morning Wants to leave AMA Objective Vital Signs and I&Os Vital Signs Date Time Temp Pulse Resp B/P B/P Pulse O2 O2 Flow FiO2 Mean Ox Delivery Rate 08/01 0559 98.4 58 20 90/44 92 Room Air 08/01 2155 99.4 72 20 110/54 97 07/31 2154 77 112/62 07/31 1442 98.7 77 18 112/62 98 Room Air 07/31 1038 70 110/60 Intake & Output 08/01 1600 08/01 0400 07/31 1600 07/31 0400 07/30 1600 07/30 0400 Intake Total 110 200 170 120 220 360 Output Total 100 300 300 25 Balance 110 200 70 -180 -80 335 Intake, IV 10 50 0 Intake, Oral 100 200 120 120 220 360 Number 2 2 Bowel Movements Output, Urine 100 300 300 25 Patient 96 lb 93 lb 8 oz Weight Weight Bed scale Measurement Method Physical Exam General Appearance: well developed/nourished, no apparent distress, alert Head: atraumatic Ears, Nose, Throat: normal ENT inspection Respiratory: normal breath sounds, quiet respiration, lungs clear Cardiovascular: regular rate/rhythm Abdomen: soft, non-tender Extremities: no edema Neurologic/Psychiatric: awake, alert Skin: intact, normal color Lymphatic: no anterior cervical brad Current Medications: Current Medications Sig/Nhi Start time Last Medication Dose Route Stop Time Status Admin Acetaminophen 650 MG Q6P PRN 07/22 1545 AC 07/31 PO 0134 Acetaminophen 1,000 MG Q6P PRN 07/22 1545 AC IV Alprazolam 1 MG Q6 07/30 1200 AC 08/01 PO 08/06 1159 0805 Calcium Carbonate 1,250 MG TIDAC 07/24 1700 AC 07/31 PO 1704 Diphenhydramine HCl 25 MG ONCE ONE 08/01 0015 DC 08/01 PO 08/01 0016 0009 Epoetin Evan 8,000 UNIT TuThSa PRN 07/23 1430 AC 07/23 IV 1449 Heparin Sodium 5,000 UNIT Q8 07/22 2199 AC 07/31 (Porcine) SC 2154 Hydromorphone HCl 2 MG ONCE ONE 08/01 0145 DC 08/01 PO 08/01 0146 0148 Hydromorphone HCl 4 MG Q12P PRN 07/31 1645 AC 08/01 PO 0805 Hydromorphone HCl 4 MG Q6P PRN 07/24 1600 DC 07/31 PO 1156 Labetalol HCl 200 MG BID 07/23 2199 AC 07/31 PO 215 Lisinopril 5 MG DAILY 07/23 1257 AC 07/30 PO 1653 Melatonin 3 MG AT BEDTIME 08/01 0045 AC 08/01 PO 0041 Polyethylene Glycol 17 GM DAILY PRN 07/22 1545 AC PO Promethazine HCl 25 MG .STK-MED ONE 07/31 221 DC IM 07/31 221 Promethazine HCl 25 MG .STK-MED ONE 07/31 1755 DC IM 07/31 1756 Promethazine HCl 25 MG Q4P PRN 07/25 1345 AC 07/31 IV 08/01 1344 2230 Results Pertinent Lab Results: Laboratory Tests 07/30 1310 Chemistry Sodium (137 - 145 mmol/L) 137 Potassium (3.5 - 5.1 mmol/L) 4.8 Chloride (98 - 107 mmol/L) 95 L Carbon Dioxide (22 - 30 mmol/L) 20 L Anion Gap (5 - 16) 22 H BUN (7 - 17 mg/dL) 75 H Creatinine (0.5 - 1.0 mg/dL) 10.6 *H Estimated GFR (>60 ml/min) 4 L Glucose (65 - 99 mg/dL) 116 H Calcium (8.4 - 10.2 mg/dL) 8.9 Phosphorus (2.5 - 4.5 mg/dL) 6.6 H Magnesium (1.6 - 2.3 mg/dL) 2.0 Total Bilirubin (0.2 - 1.3 mg/dL) 1.2 AST (14 - 36 U/L) 21 ALT (9 - 52 U/L) 35 Albumin (3.5 - 5.0 g/dL) 4.3 Hematology CBC w Diff NO MAN DIFF REQ WBC (4.8 - 10.8 /CUMM) 14.4 H RBC (4.20 - 5.40 /CUMM) 3.30 L Hgb (12.0 - 16.0 G/DL) 10.3 L Hct (37 - 47 %) 30.6 L MCV (81.0 - 99.0 FL) 92.9 MCH (27.0 - 31.0 PG) 31.1 H MCHC (33.0 - 37.0 G/DL) 33.5 RDW (11.5 - 14.5 %) 15.2 H Plt Count (130 - 400 /CUMM) 261 MPV (7.4 - 10.4 FL) 8.2 Gran % (42.2 - 75.2 %) 87.0 H Lymphocytes % (20.5 - 51.1 %) 8.0 L Monocytes % (1.7 - 9.3 %) 4.4 Eosinophils % (0 - 5 %) 0.3 Basophils % (0.0 - 2.0 %) 0.3 Absolute Granulocytes (1.4 - 6.5 /CUMM) 12.5 H Absolute Lymphocytes (1.2 - 3.4 /CUMM) 1.2 Absolute Monocytes (0.10 - 0.60 /CUMM) 0.6 Absolute Eosinophils (0.0 - 0.7 /CUMM) 0 Absolute Basophils (0.0 - 0.2 /CUMM) 0 Imaging/Other Studies: KUB: IMPRESSION: Abnormal bowel gas pattern with dilated bowel in the left mid abdomen and pelvis questionable for obstruction.
[2017-08-01 08:44] VITALS: BP 102/50
[2017-08-01 08:50] VITALS: BP 102/50
--- NOTE | 2017-08-01 11:11 | PN- Psychiatry ---
Assessment/Plan Impression: The patient reports that cardiology felt she was too weak after her persantine stress test to tolerate the cardiac catheterization at this time. She is hopefull that she will be ready in a few weeks. The patient is eager to discharge today to see her grandchildren. She has arranged her dialysis slot in [place] for today at 5 PM. She realizes that she has been inconsistent with her hemodialysis, but is generally adherent to medical orders, especially with taking her medication. She will be staying with her youngest son margarito, and will make arrangements for a permanent housing. I have left her contact information for [facility], and have made an offer for talk therapy. She has a psychiatrist currently, and will discuss it with him. Suggestion: 1, Refer the patient to her current psychiatrist, Dr. Greg Santoyo, and provide him with a discahrge summary. 2. Encourage the patient to discuss with Dr. Santoyo our proposal for psychotherapy for her depression and PTSD. The patient is not delirious, not psychotic and not suicidal or homicidal. She is clear for discharge from a psychiatry perspective. Thank you for this consult. Psychiatry is signing off. Subjective Subjective: Alert and oriented Denies AH, reports some rainbow spots while watching TV, which happens when she is not sleeping well, and have resolved. Sleep is poor. She denies suicidal or homicidal ideation. Affect is full range, and the patient is in good spirits. Review of Systems Neurological/Psychological: Denies: no symptoms. Objective Last 24 Hrs of Vital Signs/I&O Vital Signs Date Time Temp Pulse Resp B/P B/P Pulse O2 O2 Flow FiO2 Mean Ox Delivery Rate 08/01 0850 102/50 08/01 0850 102/50 08/01 0844 102/50 08/01 0659 98.4 58 20 90/44 92 Room Air 07/31 2156 99.4 72 20 110/54 97 07/31 2154 77 112/62 07/31 1442 98.7 77 18 62 98 Room Air Intake & Output 08/01 1600 08/01 0800 08/01 0000 Intake Total 110 200 Output Total Balance 110 200 Intake, IV 10 Intake, Oral 100 200 Patient 96 lb Weight Physical Exam: Not performed Physical Exam General Appearance: no apparent distress, alert, awake, comfortable Neurologic/Psychiatric: awake, alert, oriented x 3, Walks with a cane Current Medications: Current Medications Sig/Nhi Start time Last Medication Dose Route Stop Time Status Admin Acetaminophen 650 MG Q6P PRN 07/22 1545 AC 07/31 PO 0134 Acetaminophen 1,000 MG Q6P PRN 07/22 1545 AC IV Alprazolam 1 MG Q6 07/30 1200 AC 08/01 PO 08/06 1159 0805 Calcium Carbonate 1,250 MG TIDAC 07/24 1700 AC 08/01 PO 0849 Diphenhydramine HCl 25 MG ONCE ONE 08/01 0015 DC 08/01 PO 08/01 0016 0009 Epoetin Evan 8,000 UNIT TuThSa PRN 07/23 1430 AC 07/23 IV 1449 Heparin Sodium 5,000 UNIT Q8 07/22 2200 AC 07/31 (Porcine) SC 2154 Hydromorphone HCl 2 MG ONCE ONE 08/01 0145 DC 08/01 PO 08/01 0146 0148 Hydromorphone HCl 4 MG Q12P PRN 07/31 1645 AC 08/01 PO 0805 Hydromorphone HCl 4 MG Q6P PRN 07/24 1600 DC 07/31 PO 1156 Labetalol HCl 200 MG BID 07/23 2200 AC 07/31 PO 2154 Lisinopril 5 MG DAILY 07/23 1257 AC 07/30 PO 1653 Melatonin 3 MG AT BEDTIME 08/01 0045 AC 08/01 PO 0041 Patient Medication 1 ED ONE ONE 08/01 1015 DC Teaching ED 08/01 1016 Polyethylene Glycol 17 GM DAILY PRN 07/22 1545 AC PO Promethazine HCl 25 MG .STK-MED ONE 07/31 2218 DC IM 07/31 2219 Promethazine HCl 25 MG .STK-MED ONE 07/31 1755 DC IM 07/31 1756 Promethazine HCl 25 MG Q4P PRN 07/25 1345 AC 07/31 IV 08/01 1344 2230 Results Last 24 Hrs of Labs/Mics: Laboratory Tests 07/30 1310 Chemistry Sodium (137 - 145 mmol/L) 137 Potassium (3.5 - 5.1 mmol/L) 4.8 Chloride (98 - 107 mmol/L) 95 L Carbon Dioxide (22 - 30 mmol/L) 20 L Anion Gap (5 - 16) 22 H BUN (7 - 17 mg/dL) 75 H Creatinine (0.5 - 1.0 mg/dL) 10.6 *H Estimated GFR (>60 ml/min) 4 L Glucose (65 - 99 mg/dL) 116 H Calcium (8.4 - 10.2 mg/dL) 8.9 Phosphorus (2.5 - 4.5 mg/dL) 6.6 H Magnesium (1.6 - 2.3 mg/dL) 2.0 Total Bilirubin (0.2 - 1.3 mg/dL) 1.2 AST (14 - 36 U/L) 21 ALT (9 - 52 U/L) 35 Albumin (3.5 - 5.0 g/dL) 4.3 Hematology CBC w Diff NO MAN DIFF REQ WBC (4.8 - 10.8 /CUMM) 14.4 H RBC (4.20 - 5.40 /CUMM) 3.30 L Hgb (12.0 - 16.0 G/DL) 10.3 L Hct (37 - 47 %) 30.6 L MCV (81.0 - 99.0 FL) 92.9 MCH (27.0 - 31.0 PG) 31.1 H MCHC (33.0 - 37.0 G/DL) 33.5 RDW (11.5 - 14.5 %) 15.2 H Plt Count (130 - 400 /CUMM) 261 MPV (7.4 - 10.4 FL) 8.2 Gran % (42.2 - 75.2 %) 87.0 H Lymphocytes % (20.5 - 51.1 %) 8.0 L Monocytes % (1.7 - 9.3 %) 4.4 Eosinophils % (0 - 5 %) 0.3 Basophils % (0.0 - 2.0 %) 0.3 Absolute Granulocytes (1.4 - 6.5 /CUMM) 12.5 H Absolute Lymphocytes (1.2 - 3.4 /CUMM) 1.2 Absolute Monocytes (0.10 - 0.60 /CUMM) 0.6 Absolute Eosinophils (0.0 - 0.7 /CUMM) 0 Absolute Basophils (0.0 - 0.2 /CUMM) 0
[2017-08-01] MEDS ORDERED: LABETALOL HCL200 M1 PO (13:36)
[2017-08-01] MEDS ORDERED: CALCIUM CARBON500 M2 PO (13:36)
[2017-08-01] MEDS ORDERED: LISINOPRIL5 M1 PO (13:36)
--- NOTE | 2017-08-01 15:50 | Event Note ---
Event Note Event Note: Pt wished to leave AMA this AM and resfused HD and her labs. The whole team sat down with her to explain that this was not in her best interest but she insisted that she wanted to leave as she felt better. She was AO X3 and understood that the ramifications of not continuing treatment woudl lead to adverse consequences including . She signed necessary AMA paperwork, we gave her an interim supply of cardiac meds, did not prescribe any narcotic substances and she subsequently left the hospital.
== END 2017-08-01 14:30 | disposition left against medical advice (07) | DRG 133 ==
LOC: ERH 12:04 → ERHI 13:51 → 1NO 13:51 → CRI 13:51 → ENRESERV 16:13 → ENTRNSPT 16:32 → EDTRNSPT 16:41 → CRI 16:52 → CMPTRNSPT 17:08 → CRI 07-26 14:50 → ENTRNSPT 07-31 13:28 → EDTRNSPT 07-31 13:51 → EDTRNSPTSTS 07-31 13:51 → CMPTRNSPT 07-31 14:03 → 1NO 07-31 14:05 → ENPENDDIS 08-01 13:45 → 1NO 08-01 14:30
PROVIDERS: Internal Medicine Interventional Cardiology; Internal Medicine Nephrology; Physician Assistant Medical; Student in an Organized Health Care Education/Training Program
PROC: 0BH17EZ Insertion of Endotracheal Airway into Trachea, Via Natural or Artificial Opening (ICD-10-PCS; principal; 2017-07-22)
PROC: 5A1935Z Respiratory Ventilation, Less than 24 Consecutive Hours (ICD-10-PCS; 2017-07-22)
PROC: 5A1D70Z Performance of Urinary Filtration, Intermittent, Less than 6 Hours Per Day (ICD-10-PCS; 2017-07-22)
PROC: 0J2TXYZ Change Other Device in Trunk Subcutaneous Tissue and Fascia, External Approach (ICD-10-PCS; 2017-07-25)
DX: J96.01 Acute respiratory failure with hypoxia (principal); J81.0 Acute pulmonary edema; I13.2 Hypertensive heart and chronic kidney disease with heart failure and with stage 5 chronic kidney disease, or end stage renal disease; J18.9 Pneumonia, unspecified organism; N18.6 End stage renal disease; F11.20 Opioid dependence, uncomplicated; F13.20 Sedative, hypnotic or anxiolytic dependence, uncomplicated; E87.5 Hyperkalemia; Z99.2 Dependence on renal dialysis; Z91.15 Patient's noncompliance with renal dialysis; Z91.14 Patient's other noncompliance with medication regimen; Z87.820 Personal history of traumatic brain injury; Z59.0 Homelessness; I25.10 Atherosclerotic heart disease of native coronary artery without angina pectoris; G89.4 Chronic pain syndrome; F14.10 Cocaine abuse, uncomplicated; F19.10 Other psychoactive substance abuse, uncomplicated; E44.1 Mild protein-calorie malnutrition; Z68.1 Body mass index [BMI] 19.9 or less, adult; F32.9 Major depressive disorder, single episode, unspecified; Z88.6 Allergy status to analgesic agent; Z88.1 Allergy status to other antibiotic agents; Z88.5 Allergy status to narcotic agent; Z88.2 Allergy status to sulfonamides; Z88.8 Allergy status to other drugs, medicaments and biological substances; K21.9 Gastro-esophageal reflux disease without esophagitis; F41.9 Anxiety disorder, unspecified; F43.10 Post-traumatic stress disorder, unspecified; I25.2 Old myocardial infarction; F17.210 Nicotine dependence, cigarettes, uncomplicated; F90.9 Attention-deficit hyperactivity disorder, unspecified type; Z78.1 Physical restraint status; D72.829 Elevated white blood cell count, unspecified; Z53.21 Procedure and treatment not carried out due to patient leaving prior to being seen by health care provider; D64.9 Anemia, unspecified; I50.22 Chronic systolic (congestive) heart failure
CPT/HCPCS: 04007; 1NP; CCU; 36415; 36592; 71045; 74018; 77001; 78452; 80307; 81001; 82436; 87040; 87070; 87086; 87449; 87450; 87804; 87804-59; 93005; 93010; 93016; 93017; 93306; 94799; 96374; 96375; 97110-GO; 97116-GO; 97161-GP; 97530-GO; 99233; 99291; A9502; C1752; J0456; J0610; J0696; J0780; J0885; J1245; J1644; J1815; J2060; J2405; J2550; J2997; J3010; J3490; J7060